=== PATIENT | male | born 1955 | race Caucasian/White ===

== ENCOUNTER 2016-09-17 07:09 | Day surgery (SDC) | payer BC ==
[~2016-09-17 07:09] MED LIST: Lactated Ringers 1,000 ML IV SCH; Lidocaine 1%/Sod Bicarbonate in NS 8.4% 1 ML Syringe IV PRN; Lidocaine 1%/Sod Bicarbonate in NS 8.4% 1 ML Syringe PRN; Sodium Chloride 0.9% 10 ML Syringe FLUSH PRN
[2016-09-17] MEDS ORDERED: Propofol 200 MG/20 ML SDV ONE (07:10)
[2016-09-17] MEDS ORDERED: Midazolam 1 MG/ML 2 ML SDV ONE (07:12)
[2016-09-17] MEDS ORDERED: fentaNYL 250 MCG/5 ML SDV ONE (07:14)
--- NOTE | 2016-09-17 07:41 | PCM.PREANE ---
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 Cardiovascular: Reports: no symptoms GI: Reports: no symptoms Other: Reports: none - PHYSICAL ASSESSMENT O2 Sat by Pulse Oximetry: 96 RR: 16 Vital Signs: Last Vital Signs Temp 36.2 C 09/17/16 06:20 Pulse 68 09/17/16 06:20 Resp 16 09/17/16 06:20 BP 109/67 09/17/16 06:20 Pulse Ox 96 09/17/16 06:20 Height: 1.63 m Weight: 58.967 kg NPO Status Date: 09/16/16 NPO Status Time: 20:00 ASA Class: 2 Mental Status: alert & oriented x3 Airway Class: Mallampati = 3 Dentition: Reports: normal dentition Thyro-Mental Finger Breadths: 3 Mouth Opening Finger Breadths: 3 ROM/Head Extension: full Respiratory Status: lungs clear to auscultation bilaterally Cardiovascular Status: regular rate & rhythm, normal S1, S2, no murmur, blood pressure WNL - ALLERGIES Allergies/Adverse Reactions: Allergies Allergy/AdvReac Type Severity Reaction Status Date / Time erythromycin base Allergy Hives Verified 09/16/16 14:49 sulfamethoxazole Allergy Hives Verified 09/16/16 14:49 [From Bactrim] trimethoprim [From Bactrim] Allergy Hives Verified 09/16/16 14:49 - ANESTHESIA PLAN Beta-Catalino Last Dose Date: 09/17/16 Beta-Catalino Last Dose Time: 05:30 Anesthesia Type Planned: general anesthesia - ACKNOWLEDGEMENTS Pt an appropriate candidate for the planned anesthesia: Yes Alternatives and risks of anesthesia discussed w pt/guardian: Yes Pt/Guardian understands and agree with anesthesia plan: Yes PreAnesthesia Questionnaire HEENT History: Reports: Otitis media, Other (see below) Other HEENT History: bacterial conjunctivits Cardiovascular History: Reports: Hypertension (beta catalino taken this am at 0530) Respiratory History: Reports: Sleep apnea (pt uses CPAP), Other (see below) Other Respiratory History: snoring Gastrointestinal History: 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, GERD (occassional heartburn-pt states depends on what he eats) Genitourinary History: 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 CHAR PULLER History: 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 Musculoskeletal History: Reports: Arthritis, Osteoporosis, Other (see below) Other Musculoskeletal History: bilateral degenerative arthritis of bilateral knees, R knee mass Neurological History: Reports: Migraines Psychiatric History: 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 Endocrine/Metabolic History: Reports: Obesity/BMI 30+ Hematologic History: 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 Immunologic History: 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 Oncologic (Cancer) History: 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 Dermatologic History: 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 - Past Surgical History Head Surgeries/Procedures: 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 HEENT Surgical History: 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 Cardiovascular Surgical History: 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 Respiratory Surgical History: 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 GI Surgical History: 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 Male Surgical History: 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 Endocrine Surgical History: 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 Neurological Surgical History: 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 (no anesthetic complications) Musculoskeletal Surgical History: Reports: Arthroscopic knee, Other (see below) Other Musculoskeletal Surgeries/Procedures:: knee surgery Oncologic Surgical History: 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 Dermatological Surgical History: 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 - Past Imaging History Past Imaging History: 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 - SUBSTANCE USE Smoking Status *Q: Never Smoker Recreational Drug Use History: No - HOME MEDS Home Medications: Home Meds Nebivolol HCl [Bystolic] 10 mg PO DAILY 02/25/16 [History] Hydrochlorothiazide 25 mg PO DAILY 09/16/16 [History] Lisinopril 10 mg PO DAILY 09/16/16 [History] Tadalafil [Cialis] 10 mg PO ASDIRECTED PRN 09/16/16 [History] amLODIPine [Norvasc] 10 mg PO DAILY 09/16/16 [History] traMADol [Ultram] 50 mg PO Q12H PRN 09/16/16 [History] Hydrocodone/Acetaminophen [Foster 5-325 Tablet] 1 - 2 each PO Q6H PRN #40 tablet 09/17/16 [Rx] Aspirin 325 mg PO BID #100 tablet 09/18/16 [Rx] - CURRENT (IN HOUSE) MEDS Current Meds: Current Medications Lactated Ringer's (Ringers, Lactated) 1,000 mls @ 125 mls/hr IV ASDIRECTED B[facility] Stop: 09/17/16 23:00 Lidocaine/Sodium Bicarbonate (Buffered Lidocaine 1% In Ns 8.4%) 0.25 ml .XX ONETIME PRN PRN Reason: Prior to IV Start Stop: 09/17/16 18:00 Sodium Chloride (Saline Flush) 10 ml FLUSH ASDIRECTED PRN PRN Reason: Keep Vein Open Stop: 09/17/16 18:00 Discontinued Medications Fentanyl (Sublimaze) Confirm Administered Dose 250 mcg .ROUTE .STK-MED ONE Stop: 09/17/16 07:15 Midazolam HCl (Versed 1 Mg/Ml) Confirm Administered Dose 2 mg .ROUTE .STK-MED ONE Stop: 09/17/16 07:13 Propofol (Diprivan 20 Ml) Confirm Administered Dose 200 mg .ROUTE .STK-MED ONE Stop: 09/17/16 07:11
[2016-09-17] MEDS ORDERED: Bupivacaine 0.25% 10 ML SDV ONE (07:44)
[2016-09-17] MEDS ORDERED: Ondansetron 4 MG/2 ML SDV IVPUSH PRN (07:57)
[2016-09-17] MEDS ORDERED: fentaNYL 100 MCG/2 ML SDV IVPUSH PRN (09:00)
[2016-09-17] MEDS ORDERED: HYDROmorphone 0.5 MG/0.5 ML Syringe IVPUSH PRN (09:00)
--- NOTE | 2016-09-17 09:05 | PCM.POSTAN ---
POST ANESTHESIA ASSESSMENT - MENTAL STATUS Mental Status: alert, oriented - VITAL SIGNS Pulse Rate: 61 SaO2: 93 Resp Rate: 18 Blood Pressure: 114/68 Temperature: 98.2 C - RESPIRATORY Respiratory Status: respiratory rate WNL, airway patent, O2 saturation stable - CARDIOVASCULAR CV Status: pulse rate WNL, blood pressure stable - GASTROINTESTINAL GI Status: no symptoms - PAIN Pain Score: 0 - POST OP HYDRATION Hydration Status: adequate & stable
[2016-09-17] MEDS ORDERED: Acetaminophen/HYDROcodone 325-5 MG Tab PO PRN (09:11)
--- NOTE | 2016-09-17 10:17 | PCM48HPAN ---
Post Anesthesia Note - EVALUATION WITHIN 48HRS OF ANESTHETIC Vital Signs in Normal Range: Yes Patient Participated in Evaluation: Yes Respiratory Function Stable: Yes Airway Patent: Yes Cardiovascular Function Stable: Yes Hydration Status Stable: Yes Pain Control Satisfactory: Yes Nausea and Vomiting Control Satisfactory: Yes Mental Status Recovered: Yes
[2016-09-17 10:34] VITALS: BP 136/75
--- NOTE | 2016-09-28 22:38 | PCM.OPNOTE ---
- General Post-Op/Procedure Note Date of Surgery/Procedure: 09/17/16 Operative Procedure(s): Excision of cyst/mass from right medial knee Pre Op Diagnosis: mass/cyst right knee Post-Op Diagnosis: Same Anesthesia Technique: General LMA, Local Primary Surgeon: Bharat Hargrove Anesthesia Provider: Kaitlyn Osborne Client Success Specialist: Jess Chavez in mLs: 10 Complications: None Condition: Good
--- NOTE | 2016-09-28 22:58 | OR ---
DATE OF OPERATION: 09/17/2016 SURGEON: Bharat Hargrove MD OPERATIVE PROCEDURE: Excision of cyst/mass, right medial knee. PREOPERATIVE DIAGNOSIS: Mass/cyst, right knee. POSTOPERATIVE DIAGNOSIS: Mass/cyst, right knee. ANESTHESIA: General LMA with local. ANESTHESIA PROVIDER: Kaitlyn Osborne. VELVET STEAMER: Jess Chavez PA-C ESTIMATED BLOOD LOSS: 10 mL. COMPLICATIONS: None. CONDITION: Stable. DESCRIPTION OF PROCEDURE: The patient was identified in the preop holding area. Proper site was marked and identified by the surgeon. The patient was taken back to the operating theater. After adequate anesthesia, the patient's right lower extremity had a nonsterile tourniquet applied and it was then sterilely prepped and draped in the usual sterile fashion. OR time-out was performed. The patient received 2 g IV Ancef, after cultures were taken. At this time, right lower extremity was elevated. Tourniquet was inflated to 300 mmHg. Incision was made. A 10 cm, medial parapatellar arthrotomy was created directly over the mass/cyst on the medial aspect of the knee. At this time, the incision was made over the subcutaneous tissue and layer. Blunt dissection was taken down to the mass, it was noted to be a cystic type structure, well encapsulated with no signs of adherence to the tissue. At this time, it was removed in whole. It was then opened up on the back table and cultures were taken inside contents. It appeared to be cystic type fluid with no signs of purulence or infection. At this time, 6 L of normal saline was irrigated through the defect and a curette was used to roughen up the edges to allow for good healing. At this time, 3-0 Monocryl was used subcutaneously and then nylon was used for the skin. The patient has sterile soft dressing applied and will be weightbear as tolerated. He tolerated the procedure well. OPERATION PERFORMED: MMODAL /[id number]
== END 2016-09-17 10:25 | disposition home or self-care (01) ==
LOC: JD.SDS 07:09
PROVIDERS: ATTEND Orthopaedic Surgery
PROC: 0HBKXZZ Excision of Right Lower Leg Skin, External Approach (ICD-10-PCS; principal; 2016-09-17)
DX: M25.461 Effusion, right knee (principal); M25.861 Other specified joint disorders, right knee; M17.11 Unilateral primary osteoarthritis, right knee; M25.561 Pain in right knee
CPT/HCPCS: 27337; 87075; 87205; 87641; 88305; A9270; J1170; J2250; J3010; J7120; 00400; J2704

== ENCOUNTER 2016-09-28 11:00 | Inpatient (IN) | payer BC ==
[2016-11-02] MEDS ORDERED: Lidocaine 1%/Sod Bicarbonate in NS 8.4% 1 ML Syringe IV PRN (00:01)
[2016-11-02] MEDS ORDERED: Sodium Chloride 0.9% 10 ML Syringe FLUSH PRN (00:01)
[2016-11-02] MEDS ORDERED: Lactated Ringers 1,000 ML IV SCH (00:01)
[2016-11-02] MEDS ORDERED: Ondansetron 4 MG/2 ML SDV IVPUSH PRN ×2 (06:55→11:11)
[2016-11-02] MEDS ORDERED: Morphine 2 MG/ML Syringe IVPUSH PRN (06:55)
[2016-11-02] MEDS ORDERED: Bisacodyl 5 MG Tab PO PRN (06:55)
[2016-11-02] MEDS ORDERED: Lidocaine 1% 4 ML ONE (09:32)
--- NOTE | 2016-11-02 09:32 | PCM.CONS ---
H&P History of Present Illness - General Date of Service: 11/02/16 Admit Problem/Dx: Admission Diagnosis/Problem Admission Diagnosis/Problem Osteoarthritis of knee Source of Information: Patient, Old records, Provider, RN notes reviewed History Limitations: Reports: Physical impairment - History of Present Illness Initial Comments - Free Text/Narative: This is a 61-year-old, white male, with past medical history of Hypertension, OA /DJD, MORENA on CPAP and Morbid Obesity who underwent right total knee arthroplasty post operative day zero. Patient is doing relatively well. His pain is controlled. He denies any acute issues. Hospital Medicine was consulted for postoperative care. Right Knee Pain Score (Numeric/FACES): 4 - Related Data Allergies/Adverse Reactions: Allergies Allergy/AdvReac Type Severity Reaction Status Date / Time erythromycin base Allergy Hives Verified 10/30/16 12:04 sulfamethoxazole Allergy Hives Verified 10/30/16 12:04 [From Bactrim] trimethoprim [From Bactrim] Allergy Hives Verified 10/30/16 12:04 Home Medications: Home Meds Nebivolol HCl [Bystolic] 10 mg PO DAILY 02/25/16 [History] Hydrochlorothiazide 25 mg PO DAILY 09/16/16 [History] Lisinopril 10 mg PO DAILY 09/16/16 [History] Tadalafil [Cialis] 10 mg PO ASDIRECTED PRN 09/16/16 [History] amLODIPine [Norvasc] 10 mg PO DAILY 09/16/16 [History] traMADol [Ultram] 50 mg PO Q12H PRN 09/16/16 [History] Past Medical History HEENT History: Reports: Otitis media, Other (see below) Other HEENT History: bacterial conjunctivitis, otitis media, wears glasses Cardiovascular History: Reports: Hypertension Respiratory History: Reports: Sleep apnea, Other (see below) Other Respiratory History: snoring Gastrointestinal History: 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, GERD Genitourinary History: 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, Other (see below) Other Genitourinary History: urethral stricture 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 Musculoskeletal History: Reports: Arthritis, Osteoporosis, Other (see below) Other Musculoskeletal History: bilateral degenerative arthritis of bilateral knees, R knee mass Neurological History: Reports: Migraines Psychiatric History: 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 Endocrine/Metabolic History: Reports: Obesity/BMI 30+ Hematologic History: 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 Immunologic History: 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 Oncologic (Cancer) History: 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 Dermatologic History: 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 - Past Surgical History Head Surgeries/Procedures: 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 HEENT Surgical History: 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 Cardiovascular Surgical History: 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 Respiratory Surgical History: 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 GI Surgical History: 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 Male Surgical History: 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 Endocrine Surgical History: 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 Neurological Surgical History: 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 Musculoskeletal Surgical History: Reports: Arthroscopic knee, Other (see below) Other Musculoskeletal Surgeries/Procedures:: knee surgery Oncologic Surgical History: 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 Dermatological Surgical History: 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 - Past Imaging History Past Imaging History: 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 Social & Family History - Family History Family Medical History: Noncontributory - Tobacco Use Smoking Status *Q: Never Smoker Second Hand Smoke Exposure: No - Caffeine Use Caffeine Use: 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 - Recreational Drug Use Recreational Drug Use: No H&P Review of Systems - Review of Systems: Review Of Systems: See Below General: Denies: fever, chills, weakness HEENT: Reports: no symptoms Pulmonary: Denies: Shortness of Breath Cardiovascular: Denies: chest pain Gastrointestinal: Denies: Abdominal pain, Nausea, Vomiting Genitourinary: Reports: no symptoms Musculoskeletal: Reports: no symptoms Skin: Denies: cyanosis, rash, erythema Psychiatric: Denies: depression, anxiety, hallucinations Neurological: Reports: Difficulty Walking, Gait Disturbance. Denies: Confusion , Dizziness, Weakness Hematologic/Lymphatic: Reports: no symptoms Immunologic: Reports: no symptoms Exam - Exam Exam: See Below - Vital Signs Weight: 147.418 kg - Exam General: alert, oriented, cooperative, other (Morbidly Obese). No: mild distress HEENT: Conjunctiva clear, EACs clear, EOMI, Hearing intact, Mucosa moist & pink , Nares patent, Normal nasal septum, Posterior pharynx clear, Pupils equal, Pupils reactive Neck: supple, trachea midline, 2+ carotid pulse wo bruit, full range of motion, other (short and thick). No: JVD Lungs: Clear to auscultation, Normal respiratory effort Cardiovascular: regular rate, regular rhythm Abdomen: normal bowel sounds, soft, other (Obese). No: organomegaly (Male) Exam: Other (condom catheter) Rectal (Males) Exam: Deferred Back Exam: normal inspection, decreased range of motion Extremities: normal inspection, normal pulses. No: clubbing, cyanosis, calf tenderness, edema Peripheral Pulses: 2+: posterior tibial (L), posterior tibial (R), dorsalis pedis (L), dorsalis pedis (R) Skin: warm, dry, intact Neuro Extensive - Mental Status: oriented x3, normal cognition, memory intact Neuro Extensive - Motor, Sensory, Reflexes: CN II-XII intact (limited but fairly intact), abnormal gait Psychiatric: alert, normal affect, normal mood Consult PN Assessment/Plan POD#: 0 Procedures: Procedures ASSAY OF FERRITIN (10/09/16) ASSAY OF PREALBUMIN (10/09/16) ASSAY OF PROTEIN OTHER (02/28/16) ASSAY OF SERUM ALBUMIN (10/09/16) BODY FLUID CELL COUNT (02/28/16) C-REACTIVE PROTEIN (10/19/16) CHEST X-RAY 2VW FRONTAL&LATL (09/04/16) COMPLETE CBC W/AUTO DIFF WBC (10/19/16) COMPREHEN METABOLIC PANEL (02/25/16) CULTR BACTERIA EXCEPT BLOOD (09/17/16) CULTURE OTHR SPECIMN AEROBIC (02/25/16) DRAIN/INJ JOINT/BURSA W/O US (02/25/16) EMERGENCY DEPT VISIT (02/25/16) EXAM SYNOVIAL FLUID CRYSTALS (02/28/16) EXC THIGH/KNEE LES SC 3 CM/> (09/17/16) EXTREMITY STUDY (02/25/16) FUNGUS ISOLATION CULTURE (02/28/16) GLUCOSE OTHER FLUID (02/28/16) LIPID PANEL (11/16/14) METABOLIC PANEL TOTAL CA (10/09/16) MR-STAPH DNA AMP PROBE (09/17/16) MRI JNT OF LWR EXTRE W/O DYE (08/18/16) POLYSOM 6/>YRS CPAP 4/> PARM (11/25/15) PROTHROMBIN TIME (10/09/16) RBC SED RATE AUTOMATED (02/25/16) ROUTINE VENIPUNCTURE (02/28/16) SMEAR GRAM STAIN (09/17/16) THROMBOPLASTIN TIME PARTIAL (10/09/16) TISSUE EXAM BY PATHOLOGIST (09/17/16) VITAMIN D 25 HYDROXY (10/09/16) X-RAY EXAM OF KNEE 1 OR 2 (12/02/15) X-RAY EXAM OF KNEE 3 (02/25/16) Problem List Initiated/Reviewed/Updated: Yes Plan: Assessment: Acute: Post-Operative Care State - Stable - Continue to monitor for hemodynamic instability S/p Right Total Knee Arthroplasty - Stable - DVT and Pain Management as per primary team Hx/o Chronic Knee Pain - Pain Management as per primary team Post Operative Urinary Retention - Unable to void post surgery - No urine output on condom catheter - Will switch to palacios, may use pediatric due to hx/o urethral stricture - Monitor urine output per protocol Chronic: HTN MORENA on CPAP OA Peripheral Edema Obesity with BMI of 45 Plan: He is clinically stable Routine AM labs Continue home meds CPAP to use QHS PT/OT consult IS q2 awake Thank you for the opportunity to participate in the management of this patient. Requesting Provider: Dr. Hargrove Date Consult Requested: 11/02/16 Reason for Consult: Post-Operative Care Patient History Reviewed: Yes Admission H&P Reviewed: Yes Consult Result/Summary: Stable but with Post-Operative Urinary Retention
[2016-11-02] MEDS ORDERED: Propofol 200 MG/20 ML SDV ONE ×2 (09:33→11:25)
[2016-11-02] MEDS ORDERED: fentaNYL 100 MCG/2 ML SDV ONE (09:33)
[2016-11-02] MEDS ORDERED: Midazolam 1 MG/ML 2 ML SDV ONE ×2 (09:33→11:07)
[2016-11-02] MEDS ORDERED: ceFAZolin 1 GM Vial ONE ×3 (09:47→10:20)
[2016-11-02] MEDS ORDERED: Iodine/Sodium Iodide 2% Tincture 30 ML Bottle ONE (09:47)
[2016-11-02] MEDS ORDERED: Morphine PF 10 MG/10 ML SDV ONE (10:20)
[2016-11-02] MEDS ORDERED: Lactated Ringers 1,000 ML ONE ×2 (11:05)
[2016-11-02] MEDS ORDERED: diphenhydrAMINE 50 MG/ML SDV IVPUSH PRN (11:11)
[2016-11-02] MEDS ORDERED: fentaNYL 100 MCG/2 ML SDV IVPUSH PRN (11:11)
--- NOTE | 2016-11-02 11:18 | PCM.PREANE ---
Preanesthetic Assessment - Anesthesia/Transfusion/Family Hx Anesthesia History: Prior Anesthesia Without Reaction Family History of Anesthesia Reaction: No Transfusion History: No Prior Transfusion(s) - Review of Systems General: No Symptoms Pulmonary: No Symptoms Cardiovascular: No Symptoms Gastrointestinal: No symptoms Neurological: No Symptoms Other: 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 - Physical Assessment NPO Status Date: 11/01/16 NPO Status Time: 21:30 O2 Sat by Pulse Oximetry: 93 Respiratory Rate: 16 Vital Signs: Last Vital Signs Temp 99.0 F 11/02/16 09:00 Pulse 63 11/02/16 09:00 Resp 16 11/02/16 09:00 BP 150/79 H 11/02/16 09:00 Pulse Ox 93 L 11/02/16 09:00 Height: 5 ft 11 in Weight: 147.418 kg ASA Class: 2 Mental Status: Alert & Oriented x3 Airway Class: Mallampati = 3 Dentition: Reports: Normal Dentition Thyro-Mental Finger Breadths: 3 Mouth Opening Finger Breadths: 3 ROM/Head Extension: Full Lungs: Clear to auscultation, Normal respiratory effort Cardiovascular: Regular Rate, Regular Rhythm - Lab Values: Laboratory Last Values MRSA (PCR) Negative 10/21/16 16:16 - Allergies Allergies/Adverse Reactions: Allergies Allergy/AdvReac Type Severity Reaction Status Date / Time erythromycin base Allergy Hives Verified 10/30/16 12:04 sulfamethoxazole Allergy Hives Verified 10/30/16 12:04 [From Bactrim] trimethoprim [From Bactrim] Allergy Hives Verified 10/30/16 12:04 - Blood Blood Available: No - Anesthesia Plan Pre-Op Medication Ordered: None Beta Catalino: Other (bystolic) Med Last Dose Date: 11/02/16 Med Last Dose Time: 06:15 - Acknowledgements Anesthesia Type Planned: Spinal Pt an Appropriate Candidate for the Planned Anesthesia: Yes Alternatives and Risks of Anesthesia Discussed w Pt/Guardian: Yes Pt/Guardian Understands and Agrees with Anesthesia Plan: Yes PreAnesthesia Questionnaire HEENT History: Reports: Otitis media, Other (see below) Other HEENT History: bacterial conjunctivitis, otitis media, wears glasses Cardiovascular History: Reports: Hypertension Respiratory History: Reports: Sleep apnea, Other (see below) Other Respiratory History: snoring Gastrointestinal History: 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, GERD Genitourinary History: 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, Other (see below) Other Genitourinary History: urethral stricture 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: 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 Musculoskeletal History: Reports: Arthritis, Osteoporosis, Other (see below) Other Musculoskeletal History: bilateral degenerative arthritis of bilateral knees, R knee mass Neurological History: Reports: Migraines Psychiatric History: 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 Endocrine/Metabolic History: Reports: Obesity/BMI 30+ Hematologic History: 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 Immunologic History: 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 Oncologic (Cancer) History: 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 Dermatologic History: 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 - Past Surgical History Head Surgeries/Procedures: 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 HEENT Surgical History: 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 Cardiovascular Surgical History: 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 Respiratory Surgical History: 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 GI Surgical History: 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 Male Surgical History: 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 Endocrine Surgical History: 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 Neurological Surgical History: 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 Musculoskeletal Surgical History: Reports: Arthroscopic knee, Other (see below) Other Musculoskeletal Surgeries/Procedures:: knee surgery Oncologic Surgical History: 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 Dermatological Surgical History: 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 - Past Imaging History Past Imaging History: 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 - SUBSTANCE USE Smoking Status *Q: Never Smoker Tobacco Use Within Last Twelve Months: No Second Hand Smoke Exposure: No Days Per Week of Alcohol Use: 1 Number of Drinks Per Day: 3 Total Drinks Per Week: 3 Recreational Drug Use History: No - HOME MEDS Home Medications: Home Meds Nebivolol HCl [Bystolic] 10 mg PO DAILY 02/25/16 [History] Hydrochlorothiazide 25 mg PO DAILY 09/16/16 [History] Lisinopril 10 mg PO DAILY 09/16/16 [History] Tadalafil [Cialis] 10 mg PO ASDIRECTED PRN 09/16/16 [History] amLODIPine [Norvasc] 10 mg PO DAILY 09/16/16 [History] traMADol [Ultram] 50 mg PO Q12H PRN 09/16/16 [History] - CURRENT (IN HOUSE) MEDS Current Meds: Current Medications Aspirin (Ecotrin) 325 mg PO BID [facility] Bisacodyl (Dulcolax) 5 mg PO DAILY PRN PRN Reason: Constipation Cyclobenzaprine HCl (Flexeril) 10 mg PO TID PRN PRN Reason: Spasms Docusate Sodium (Colace) 100 mg PO BID BENSON Famotidine (Pepcid) 20 mg PO Q12H BENSON Lactated Ringer's (Ringers, Lactated) 1,000 mls @ 125 mls/hr IV ASDIRECTED [facility] Last Admin: 11/02/16 09:00 Dose: 125 mls/hr Cefazolin Sodium/Dextrose 2 gm (/ Premix) 50 mls @ 100 mls/hr IV Q8H [facility] Stop: 11/03/16 09:59 Lidocaine/Sodium Bicarbonate (Buffered Lidocaine 1% In Ns 8.4%) 0.25 ml IV ONETIME PRN PRN Reason: Prior to IV Start Last Admin: 11/02/16 08:59 Dose: 0.25 ml Magnesium Hydroxide (Milk Of Magnesia) 30 ml PO BID PRN PRN Reason: Constipation Morphine Sulfate (Morphine) 2 mg IVPUSH Q2H PRN PRN Reason: Breakthrough Pain Multivitamins (Thera) 1 each PO WITHBREAKFAST [facility] Naloxone HCl (Narcan) 0.1 mg IVPUSH Q5M PRN PRN Reason: Oversedation Stop: 11/02/16 12:16 Ondansetron HCl (Zofran) 4 mg IVPUSH Q6H PRN PRN Reason: Nausea/Vomiting Oxycodone/Acetaminophen (Percocet 325-5 Mg) 1 - 2 tab PO Q4H PRN PRN Reason: Pain Senna (Senna) 8.6 mg PO BID PRN PRN Reason: Constipation Sodium Chloride (Saline Flush) 10 ml FLUSH ASDIRECTED PRN PRN Reason: Keep Vein Open Discontinued Medications Bupivacaine HCl (Marcaine 0.25%) Confirm Administered Dose 30 ml .ROUTE .STK- MED ONE Stop: 11/02/16 09:48 Cefazolin Sodium (Ancef) Confirm Administered Dose 2 gm .ROUTE .STK-MED ONE Stop: 11/02/16 09:34 Cefazolin Sodium (Ancef) Confirm Administered Dose 1 gm .ROUTE .STK-MED ONE Stop: 11/02/16 09:48 Cefazolin Sodium (Ancef) Confirm Administered Dose 1 gm .ROUTE .STK-MED ONE Stop: 11/02/16 09:50 Cefazolin Sodium (Ancef) Confirm Administered Dose 1 gm .ROUTE .STK-MED ONE Stop: 11/02/16 10:21 Morphine Sulfate 8 mg/Epinephrine HCl 0.3 mg/Cefuroxime Sodium 750 mg/Ketorolac Tromethamine 30 mg/Sodium Chloride 27.9 ml 0 mg .XX ONETIME ONE Stop: 11/02/16 10:46 Fentanyl (Sublimaze) Confirm Administered Dose 100 mcg .ROUTE .STK-MED ONE Stop: 11/02/16 09:34 Lidocaine HCl (Xylocaine-Mpf 1%) Confirm Administered Dose 4 mls @ as directed .ROUTE .STK-MED ONE Stop: 11/02/16 09:33 Lactated Ringer's (Ringers, Lactated) Confirm Administered Dose 1,000 mls @ as directed .ROUTE .STK-MED ONE Stop: 11/02/16 11:06 Lactated Ringer's (Ringers, Lactated) Confirm Administered Dose 1,000 mls @ as directed .ROUTE .STK-MED ONE Stop: 11/02/16 11:06 Iodine (Iodine 2% Mild Tincture) Confirm Administered Dose 30 ml .ROUTE .STK- MED ONE Stop: 11/02/16 09:48 Midazolam HCl (Versed 1 Mg/Ml) Confirm Administered Dose 2 mg .ROUTE .STK-MED ONE Stop: 11/02/16 09:34 Midazolam HCl (Versed 1 Mg/Ml) Confirm Administered Dose 2 mg .ROUTE .STK-MED ONE Stop: 11/02/16 11:08 Morphine Sulfate (Duramorph Pf) Confirm Administered Dose 10 mg .ROUTE .STK-MED ONE Stop: 11/02/16 10:21 Propofol (Diprivan 20 Ml) Confirm Administered Dose 200 mg .ROUTE .STK-MED ONE Stop: 11/02/16 09:34 Tranexamic Acid (Cyklokapron) Confirm Administered Dose 1,000 mg .ROUTE .STK- MED ONE Stop: 11/02/16 09:47
[2016-11-02] MEDS: ceFAZolin 1 GM Vial ONE ×2 (11:41→12:18)
[2016-11-02] MEDS: Bupivacaine 0.25% 30 ML SDV ONE ×2 (11:41→12:23)
[2016-11-02] MEDS: Morphine 8 MG, EPINEPHrine 0.3 MG, Cefuroxime 750 MG, Ketorolac 30 MG, Sodium Chloride ... ONE ×10 (11:44→12:22)
[2016-11-02] MEDS ORDERED: Naloxone 0.4 MG/ML SDV IVPUSH PRN (12:00)
[2016-11-02] MEDS ORDERED: Meperidine PF 50 MG/ML Syringe IVPUSH PRN (12:15)
[2016-11-02] MEDS ORDERED: TADALAFIL 10 MG PO PRN (12:17)
--- NOTE | 2016-11-02 13:14 | PCM.POSTAN ---
POST ANESTHESIA ASSESSMENT - MENTAL STATUS Mental Status: alert, oriented - VITAL SIGNS Pulse Rate: 56 SaO2: 93 Resp Rate: 10 Blood Pressure: 129/76 Temperature: 98.4 C - RESPIRATORY Respiratory Status: respiratory rate WNL, airway patent, O2 saturation stable - CARDIOVASCULAR CV Status: pulse rate WNL, blood pressure stable - GASTROINTESTINAL GI Status: no symptoms - PAIN Pain Score: 0 - POST OP HYDRATION Hydration Status: adequate & stable
[2016-11-02] MEDS: Acetaminophen/oxyCODONE 325-5 MG Tab PO PRN ×2 (15:56→20:50)
[2016-11-02] MEDS: Cyclobenzaprine 10 MG Tab PO PRN ×2 (15:58→23:15)
[2016-11-02] MEDS ORDERED: Lidocaine 2% Jelly 10 ML Urojet ONE (16:37)
[2016-11-02] MEDS ORDERED: Bumetanide 1 MG/4 ML MDV IVPUSH ONE (17:03)
--- NOTE | 2016-11-02 17:04 | CR ---
Right knee: AP and lateral views of the right knee were obtained. Comparison: Previous MRI right knee of 08/18/16 and plain film right knee study of 12/02/15. Knee prosthesis is seen. Components are aligned. Underlying bony structures are intact. Soft tissue air noted from the surgical procedure. Cortical thickening is seen within the proximal fibular diaphysis compatible with old injury. Impression: 1. Satisfactory radiographic appearance of recently placed right knee prosthesis. Diagnostic code #2
[2016-11-02] MEDS: Tamsulosin 0.4 MG Cap.ER PO SCH ×2 (17:40→18:52)
[2016-11-02] MEDS: ceFAZolin 2 GM in Premix Bag 1 BAG IV SCH (17:49)
[2016-11-02] MEDS: ceFAZolin 1 GM in Premix Bag 1 BAG IV SCH (18:34)
[2016-11-02] MEDS ORDERED: Sennosides 8.6 MG Tab PO PRN (21:00)
[2016-11-02] MEDS ORDERED: Magnesium Hydroxide 400 MG/5 ML Susp 30 ML Cup PO PRN (21:00)
[2016-11-02] MEDS: Famotidine 20 MG Tab PO SCH (22:00)
[2016-11-02] MEDS: Docusate Sodium 100 MG Cap PO SCH (23:07)
[2016-11-03] MEDS: Acetaminophen/oxyCODONE 325-5 MG Tab PO PRN ×4 (01:11→13:40)
[2016-11-03] MEDS: ceFAZolin 2 GM in Premix Bag 1 BAG IV SCH ×2 (01:21→09:05)
--- NOTE | 2016-11-03 01:46 | PCM.SN ---
- Free Text/Narrative Note: Patient was able to empty his bladder after he had gotten flomax and one time dose of bumex. Will continue to monitor output.
[2016-11-03] MEDS: ceFAZolin 1 GM in Premix Bag 1 BAG IV SCH ×2 (01:59→10:26)
[2016-11-03] MEDS ORDERED: Multivitamins,Therapeutic Tab PO SCH (07:00)
[2016-11-03] MEDS: Cyclobenzaprine 10 MG Tab PO PRN (07:25)
--- NOTE | 2016-11-03 08:29 | PCM48HPAN ---
Post Anesthesia Note - EVALUATION WITHIN 48HRS OF ANESTHETIC Vital Signs in Normal Range: Yes Patient Participated in Evaluation: Yes Respiratory Function Stable: Yes Airway Patent: Yes Cardiovascular Function Stable: Yes Hydration Status Stable: Yes Pain Control Satisfactory: Yes Nausea and Vomiting Control Satisfactory: Yes Mental Status Recovered: Yes - COMMENTS/OBSERVATIONS Free Text/Narrative:: Patient awake, alert, and responsive to interview. Patient states pain control is adequate. Patient encouraged to deep breathe and cough and use IS every hour.
--- NOTE | 2016-11-03 08:41 | PCM.PN ---
- General Info Date of Service: 11/03/16 Admission Dx/Problem (Free Text): Admission Diagnosis/Problem Admission Diagnosis/Problem Osteoarthritis of knee POD #[address] Hargrove Pain controlled Working with PT/OT doing well Voiding now; had flomax and bumex last night Functional Status: Reports: pain controlled, tolerating diet, ambulating, urinating. Denies: new symptoms - Review of Systems General: Reports: No Symptoms HEENT: Reports: no symptoms Pulmonary: Reports: no symptoms Cardiovascular: Reports: No Symptoms Gastrointestinal: Reports: No symptoms Genitourinary: Reports: no symptoms Musculoskeletal: Reports: leg pain Skin: Reports: no symptoms Neurological: Reports: No Symptoms Psychiatric: Reports: no symptoms - Patient Data Vitals - most recent: Last Vital Signs Temp 98.1 F 11/03/16 04:57 Pulse 67 11/03/16 04:57 Resp 18 11/03/16 07:58 BP 121/66 11/03/16 04:57 Pulse Ox 99 11/03/16 07:58 Weight - most recent: 325 lb I&O - last 24 hours: Intake & Output 11/02/16 11/03/16 11/03/16 22:59 06:59 14:59 Intake Total 450 1300 Output Total 1700 500 Balance -1250 800 Lab Results last 24 hrs: Laboratory Results - last 24 hr 11/03/16 11/03/16 Range/Units 06:10 06:10 WBC 13.03 H (4.23-9.07) K/mm3 RBC 4.27 L (4.63-6.08) M/mm3 Hgb 12.7 L (13.7-17.5) gm/L Hct 38.4 L (40.1-51.0) % MCV 89.9 (79.0-92.2) fl MCH 29.7 (25.7-32.2) pg MCHC 33.1 (32.2-35.5) g/dl RDW Std Deviation 46.8 H (35.1-43.9) fL Plt Count 200 (163-337) K/mm3 MPV 9.7 (9.4-12.3) fl Neut % (Auto) 74.4 H (34.0-67.9) % Lymph % (Auto) 12.4 L (21.8-53.1) % Clark % (Auto) 11.4 (5.3-12.2) % Eos % (Auto) 1.4 (0.8-7.0) Baso % (Auto) 0.2 (0.1-1.2) % Neut # (Auto) 9.70 H (1.78-5.38) K/mm3 Lymph # (Auto) 1.62 (1.32-3.57) K/mm3 Clark # (Auto) 1.48 H (0.30-0.82) K/mm3 Eos # (Auto) 0.18 (0.04-0.54) K/mm3 Baso # (Auto) 0.02 (0.01-0.08) K/mm3 Sodium 136 (136-145) mEq/L Potassium 3.5 (3.5-5.1) mEq/L Chloride 100 (98-107) mEq/L Carbon Dioxide 29 (21-32) mEq/L Anion Gap 10.5 (5-15) BUN 12 (7-18) mg/dL Creatinine 0.9 (0.7-1.3) mg/dL Est Cr Clr Drug Dosing 72.80 mL/min Estimated GFR (MDRD) > 60 (>60) mL/min BUN/Creatinine Ratio 13.3 L (14-18) Glucose 127 H (74-106) mg/dL Calcium 8.0 L (8.5-10.1) mg/dL Total Bilirubin 0.8 (0.2-1.0) mg/dL AST 13 L (15-37) U/L ALT 19 (16-63) U/L Alkaline Phosphatase 55 (46-116) U/L Total Protein 6.0 L (6.4-8.2) g/dl Albumin 2.8 L (3.4-5.0) g/dl Globulin 3.2 gm/dL Albumin/Globulin Ratio 0.9 L (1-2) Med Orders - Current: Current Medications Amlodipine Besylate (Norvasc) 10 mg PO DAILY [facility] Aspirin (Ecotrin) 325 mg PO BID [facility] Bisacodyl (Dulcolax) 5 mg PO DAILY PRN PRN Reason: Constipation Carvedilol (Coreg) 6.25 mg PO DAILY [facility] Cyclobenzaprine HCl (Flexeril) 10 mg PO TID PRN PRN Reason: Spasms Last Admin: 11/03/16 07:25 Dose: 10 mg Docusate Sodium (Colace) 100 mg PO BID [facility] Last Admin: 11/02/16 23:07 Dose: Not Given Famotidine (Pepcid) 20 mg PO Q12H [facility] Last Admin: 11/02/16 22:00 Dose: 20 mg Hydrochlorothiazide (Hydrochlorothiazide) 25 mg PO DAILY [facility] Cefazolin Sodium/Dextrose 2 gm (/ Premix) 50 mls @ 100 mls/hr IV Q8H [facility] Stop: 11/03/16 09:59 Last Admin: 11/03/16 01:21 Dose: 100 mls/hr Cefazolin Sodium/Dextrose 1 gm (/ Premix) 50 mls @ 100 mls/hr IV Q8H [facility] Stop: 11/03/16 09:59 Last Admin: 11/03/16 01:59 Dose: 100 mls/hr Lisinopril (Prinivil) 10 mg PO DAILY [facility] Magnesium Hydroxide (Milk Of Magnesia) 30 ml PO BID PRN PRN Reason: Constipation Meperidine HCl (Demerol) 12.5 mg IVPUSH ONETIME PRN PRN Reason: shivering Stop: 11/03/16 12:16 Morphine Sulfate (Morphine) 2 mg IVPUSH Q2H PRN PRN Reason: Breakthrough Pain Multivitamins (Thera) 1 each PO WITHBREAKFAST [facility] Last Admin: 11/03/16 07:25 Dose: 1 each Ondansetron HCl (Zofran) 4 mg IVPUSH Q6H PRN PRN Reason: Nausea/Vomiting Oxycodone/Acetaminophen (Percocet 325-5 Mg) 1 - 2 tab PO Q4H PRN PRN Reason: Pain Last Admin: 11/03/16 04:57 Dose: 2 tab Senna (Senna) 8.6 mg PO BID PRN PRN Reason: Constipation Sodium Chloride (Saline Flush) 10 ml FLUSH ASDIRECTED PRN PRN Reason: Keep Vein Open [facility] Last Admin: 11/02/16 18:52 Dose: Not Given Discontinued Medications Bumetanide (Bumex) 1 mg IVPUSH ONETIME ONE Stop: 11/02/16 17:04 Last Admin: 11/02/16 17:40 Dose: 1 mg Bupivacaine HCl (Marcaine 0.25%) Confirm Administered Dose 30 ml .ROUTE .STK- MED ONE Stop: 11/02/16 09:48 Last Admin: 11/02/16 12:23 Dose: 30 ml Cefazolin Sodium (Ancef) Confirm Administered Dose 2 gm .ROUTE .STK-MED ONE Stop: 11/02/16 09:34 Last Admin: 11/02/16 12:18 Dose: 2 gm Cefazolin Sodium (Ancef) Confirm Administered Dose 1 gm .ROUTE .STK-MED ONE Stop: 11/02/16 09:48 Cefazolin Sodium (Ancef) Confirm Administered Dose 1 gm .ROUTE .STK-MED ONE Stop: 11/02/16 09:50 Cefazolin Sodium (Ancef) Confirm Administered Dose 1 gm .ROUTE .STK-MED ONE Stop: 11/02/16 10:21 Morphine Sulfate 8 mg/Epinephrine HCl 0.3 mg/Cefuroxime Sodium 750 mg/Ketorolac Tromethamine 30 mg/Sodium Chloride 27.9 ml 0 mg .XX ONETIME ONE Stop: 11/02/16 10:46 Last Admin: 11/02/16 12:22 Dose: 788.3 mg Diphenhydramine HCl (Benadryl) 25 mg IVPUSH Q6H PRN PRN Reason: pruritis Stop: 11/02/16 18:00 Fentanyl (Sublimaze) Confirm Administered Dose 100 mcg .ROUTE .STK-MED ONE Stop: 11/02/16 09:34 Fentanyl (Sublimaze) 50 mcg IVPUSH Q5M PRN PRN Reason: Pain Stop: 11/02/16 18:00 Lactated Ringer's (Ringers, Lactated) 1,000 mls @ 125 mls/hr IV ASDIRECTED [facility] Last Admin: 11/02/16 09:00 Dose: 125 mls/hr Lidocaine HCl (Xylocaine-Mpf 1%) Confirm Administered Dose 4 mls @ as directed .ROUTE .STK-MED ONE Stop: 11/02/16 09:33 Lactated Ringer's (Ringers, Lactated) Confirm Administered Dose 1,000 mls @ as directed .ROUTE .STK-MED ONE Stop: 11/02/16 11:06 Lactated Ringer's (Ringers, Lactated) Confirm Administered Dose 1,000 mls @ as directed .ROUTE .STK-MED ONE Stop: 11/02/16 11:06 Iodine (Iodine 2% Mild Tincture) Confirm Administered Dose 30 ml .ROUTE .STK- MED ONE Stop: 11/02/16 09:48 Last Admin: 11/02/16 12:12 Dose: 18 ml Lidocaine HCl (Xylocaine 2% Jelly) Confirm Administered Dose 10 ml .ROUTE .STK- MED ONE Stop: 11/02/16 16:38 Lidocaine/Sodium Bicarbonate (Buffered Lidocaine 1% In Ns 8.4%) 0.25 ml IV ONETIME PRN PRN Reason: Prior to IV Start Last Admin: 11/02/16 08:59 Dose: 0.25 ml Midazolam HCl (Versed 1 Mg/Ml) Confirm Administered Dose 2 mg .ROUTE .STK-MED ONE Stop: 11/02/16 09:34 Midazolam HCl (Versed 1 Mg/Ml) Confirm Administered Dose 2 mg .ROUTE .STK-MED ONE Stop: 11/02/16 11:08 Morphine Sulfate (Duramorph Pf) Confirm Administered Dose 10 mg .ROUTE .STK-MED ONE Stop: 11/02/16 10:21 Naloxone HCl (Narcan) 0.1 mg IVPUSH Q5M PRN PRN Reason: Oversedation Stop: 11/02/16 12:16 Non-Formulary Medication (Tadalafil [Cialis]) 10 mg PO ASDIRECTED PRN PRN Reason: erectile dysfuction Ondansetron HCl (Zofran) 4 mg IVPUSH ONETIME PRN PRN Reason: Nausea/Vomiting Stop: 11/02/16 18:00 Propofol (Diprivan 20 Ml) Confirm Administered Dose 200 mg .ROUTE .STK-MED ONE Stop: 11/02/16 09:34 Propofol (Diprivan 20 Ml) Confirm Administered Dose 400 mg .ROUTE .STK-MED ONE Stop: 11/02/16 11:26 Tranexamic Acid (Cyklokapron) Confirm Administered Dose 1,000 mg .ROUTE .STK- MED ONE Stop: 11/02/16 09:47 Last Admin: 11/02/16 12:28 Dose: 1,000 mg - Exam Quality Assessment: supplemental oxygen, DVT prophylaxis General: alert, oriented, cooperative, no acute distress HEENT: Pupils equal, Pupils reactive, EOMI, Mucous membr. moist/pink Neck: supple Lungs: Clear to auscultation, Normal respiratory effort Cardiovascular: Regular Rate, Regular Rhythm Abdomen: bowel sounds present, soft, no tenderness, no distension (Male) Exam: Deferred Extremities: other (teds, scd's and ice) Peripheral Pulses: 1+: dorsalis pedis (L), dorsalis pedis (R) Neurological: no new focal deficit Psy/Mental Status: alert, normal affect, normal mood - Problem List & Annotations (1) S/P total knee arthroplasty SNOMED Code(s): 9796116266283, 735615242, 4459513729886 Code(s): Z96.659 - PRESENCE OF UNSPECIFIED ARTIFICIAL KNEE JOINT Status: Acute Priority: High Current Visit: Yes Qualifiers: Laterality: right Qualified Code(s): Z96.651 - Presence of right artificial knee joint (2) Osteoarthritis SNOMED Code(s): 779009185 Code(s): M19.90 - UNSPECIFIED OSTEOARTHRITIS, UNSPECIFIED SITE Status: Acute Priority: High Current Visit: Yes Qualifiers: Osteoarthritis location: knee Osteoarthritis type: primary Laterality: right Qualified Code(s): M17.11 - Unilateral primary osteoarthritis, right knee (3) Urinary retention SNOMED Code(s): 982400532 Code(s): R33.9 - RETENTION OF URINE, UNSPECIFIED Status: Acute Priority: High Current Visit: Yes (4) HTN (hypertension) SNOMED Code(s): 81797968 Code(s): I10 - ESSENTIAL (PRIMARY) HYPERTENSION Status: Chronic Priority : Medium Current Visit: No Qualifiers: Hypertension type: essential hypertension Qualified Code(s): I10 - Essential (primary) hypertension (5) MORENA (obstructive sleep apnea) SNOMED Code(s): 54187639 Code(s): G47.33 - OBSTRUCTIVE SLEEP APNEA (ADULT) (PEDIATRIC) Status: Chronic Priority: Medium Current Visit: No (6) Obesity SNOMED Code(s): 115859790 Code(s): E66.9 - OBESITY, UNSPECIFIED Status: Chronic Priority: Medium Current Visit: No Qualifiers: Obesity severity: unspecified obesity severity - Problem List Review Problem List Initiated/Reviewed/Updated: Yes - Plan Plan:: I/P: S/P Rt TKA with Dr. Delvin: POD #1 -Pain management and DVT prophyax per primary team, Orthopedics -PT/OT -IS, C&DB -HGB 12.7 today -VSS Urinary retention -Flomax and diuretic dose last evening with spontaneous void -Cont close monitoring Chronic conditions- stable and cont home meds/tx HTN MORENA Obesity Other: GI prophylax CM/SW for dc planning OK for dc home today from hospitalist standpoint- medically stable Patient is Full Code
[2016-11-03] MEDS: Docusate Sodium 100 MG Cap PO SCH (08:58)
[2016-11-03] MEDS: Tamsulosin 0.4 MG Cap.ER PO SCH (08:58)
[2016-11-03] MEDS ORDERED: Aspirin 325 MG Tab.EC PO SCH (09:00)
[2016-11-03] MEDS ORDERED: amLODIPine 10 MG Tab PO SCH (09:00)
[2016-11-03] MEDS ORDERED: Carvedilol 6.25 MG Tab PO SCH (09:00)
[2016-11-03] MEDS ORDERED: Lisinopril 10 MG Tab PO SCH (09:00)
[2016-11-03] MEDS ORDERED: Hydrochlorothiazide 25 MG Tab PO SCH (09:00)
[2016-11-03] MEDS: Famotidine 20 MG Tab PO SCH (09:03)
[2016-11-03 15:51] VITALS: BP 162/79
--- NOTE | 2016-11-04 21:08 | PCM.SURGPN ---
- General Info Date of Service: 11/02/16 Date of Surgery/Procedure: 11/03/16 POD#: 1 Functional Status: Reports: pain controlled, tolerating diet, ambulating, urinating, incentive spirometry - Review of Systems General: Reports: No Symptoms HEENT: Reports: no symptoms Pulmonary: Reports: no symptoms. Denies: shortness of breath Cardiovascular: Reports: No Symptoms. Denies: Chest Pain Gastrointestinal: Reports: No symptoms Genitourinary: Reports: no symptoms Musculoskeletal: Reports: leg pain (Mild due to recent OT) Skin: Reports: no symptoms Neurological: Denies: Numbness, Paresthesia, Weakness Psychiatric: Reports: no symptoms - Patient Data Vitals - most recent: Last Vital Signs Temp 37.4 C 11/03/16 15:13 Pulse 101 H 11/03/16 15:13 Resp 18 11/03/16 12:00 BP 162/79 H 11/03/16 15:13 Pulse Ox 91 L 11/03/16 15:13 Weight - most recent: 147.418 kg Lab Results last 24 hrs: Laboratory Last Values WBC 13.03 K/mm3 (4.23-9.07) H 11/03/16 06:10 RBC 4.27 M/mm3 (4.63-6.08) L 11/03/16 06:10 Hgb 12.7 gm/L (13.7-17.5) L 11/03/16 06:10 Hct 38.4 % (40.1-51.0) L 11/03/16 06:10 MCV 89.9 fl (79.0-92.2) 11/03/16 06:10 MCH 29.7 pg (25.7-32.2) 11/03/16 06:10 MCHC 33.1 g/dl (32.2-35.5) 11/03/16 06:10 RDW Std Deviation 46.8 fL (35.1-43.9) H 11/03/16 06:10 Plt Count 200 K/mm3 (163-337) 11/03/16 06:10 MPV 9.7 fl (9.4-12.3) 11/03/16 06:10 Neut % (Auto) 74.4 % (34.0-67.9) H 11/03/16 06:10 Lymph % (Auto) 12.4 % (21.8-53.1) L 11/03/16 06:10 Kimble % (Auto) 11.4 % (5.3-12.2) 11/03/16 06:10 Eos % (Auto) 1.4 (0.8-7.0) 11/03/16 06:10 Baso % (Auto) 0.2 % (0.1-1.2) 11/03/16 06:10 Neut # (Auto) 9.70 K/mm3 (1.78-5.38) H 11/03/16 06:10 Lymph # (Auto) 1.62 K/mm3 (1.32-3.57) 11/03/16 06:10 Kimble # (Auto) 1.48 K/mm3 (0.30-0.82) H 11/03/16 06:10 Eos # (Auto) 0.18 K/mm3 (0.04-0.54) 11/03/16 06:10 Baso # (Auto) 0.02 K/mm3 (0.01-0.08) 11/03/16 06:10 Sodium 136 mEq/L (136-145) 11/03/16 06:10 Potassium 3.5 mEq/L (3.5-5.1) 11/03/16 06:10 Chloride 100 mEq/L (98-107) 11/03/16 06:10 Carbon Dioxide 29 mEq/L (21-32) 11/03/16 06:10 Anion Gap 10.5 (5-15) 11/03/16 06:10 BUN 12 mg/dL (7-18) 11/03/16 06:10 Creatinine 0.9 mg/dL (0.7-1.3) 11/03/16 06:10 Est Cr Clr Drug Dosing 72.80 mL/min 11/03/16 06:10 Estimated GFR (MDRD) > 60 mL/min (>60) 11/03/16 06:10 BUN/Creatinine Ratio 13.3 (14-18) L 11/03/16 06:10 Glucose 127 mg/dL (74-106) H 11/03/16 06:10 Calcium 8.0 mg/dL (8.5-10.1) L 11/03/16 06:10 Total Bilirubin 0.8 mg/dL (0.2-1.0) 11/03/16 06:10 AST 13 U/L (15-37) L 11/03/16 06:10 ALT 19 U/L (16-63) 11/03/16 06:10 Alkaline Phosphatase 55 U/L (46-116) 11/03/16 06:10 Total Protein 6.0 g/dl (6.4-8.2) L 11/03/16 06:10 Albumin 2.8 g/dl (3.4-5.0) L 11/03/16 06:10 Globulin 3.2 gm/dL 11/03/16 06:10 Albumin/Globulin Ratio 0.9 (1-2) L 11/03/16 06:10 MRSA (PCR) Negative 10/21/16 16:16 Med Orders - Current: Current Medications Discontinued Medications Amlodipine Besylate (Norvasc) 10 mg PO DAILY [facility] Last Admin: 11/03/16 09:02 Dose: 10 mg Aspirin (Ecotrin) 325 mg PO BID [facility] Last Admin: 11/03/16 09:03 Dose: 325 mg Bisacodyl (Dulcolax) 5 mg PO DAILY PRN PRN Reason: Constipation Bumetanide (Bumex) 1 mg IVPUSH ONETIME ONE Stop: 11/02/16 17:04 Last Admin: 11/02/16 17:40 Dose: 1 mg Bupivacaine HCl (Marcaine 0.25%) Confirm Administered Dose 30 ml .ROUTE .STK- MED ONE Stop: 11/02/16 09:48 Last Admin: 11/02/16 12:23 Dose: 30 ml Carvedilol (Coreg) 6.25 mg PO DAILY [facility] Last Admin: 11/03/16 08:59 Dose: 6.25 mg Cefazolin Sodium (Ancef) Confirm Administered Dose 2 gm .ROUTE .STK-MED ONE Stop: 11/02/16 09:34 Last Admin: 11/02/16 12:18 Dose: 2 gm Cefazolin Sodium (Ancef) Confirm Administered Dose 1 gm .ROUTE .STK-MED ONE Stop: 11/02/16 09:48 Cefazolin Sodium (Ancef) Confirm Administered Dose 1 gm .ROUTE .STK-MED ONE Stop: 11/02/16 09:50 Cefazolin Sodium (Ancef) Confirm Administered Dose 1 gm .ROUTE .STK-MED ONE Stop: 11/02/16 10:21 Morphine Sulfate 8 mg/Epinephrine HCl 0.3 mg/Cefuroxime Sodium 750 mg/Ketorolac Tromethamine 30 mg/Sodium Chloride 27.9 ml 0 mg .XX ONETIME ONE Stop: 11/02/16 10:46 Last Admin: 11/02/16 12:22 Dose: 788.3 mg Cyclobenzaprine HCl (Flexeril) 10 mg PO TID PRN PRN Reason: Spasms Last Admin: 11/03/16 07:25 Dose: 10 mg Diphenhydramine HCl (Benadryl) 25 mg IVPUSH Q6H PRN PRN Reason: pruritis Stop: 11/02/16 18:00 Docusate Sodium (Colace) 100 mg PO BID [facility] Last Admin: 11/03/16 08:58 Dose: 100 mg Famotidine (Pepcid) 20 mg PO Q12H [facility] Last Admin: 11/03/16 09:03 Dose: 20 mg Fentanyl (Sublimaze) Confirm Administered Dose 100 mcg .ROUTE .STK-MED ONE Stop: 11/02/16 09:34 Fentanyl (Sublimaze) 50 mcg IVPUSH Q5M PRN PRN Reason: Pain Stop: 11/02/16 18:00 Hydrochlorothiazide (Hydrochlorothiazide) 25 mg PO DAILY [facility] Last Admin: 11/03/16 09:03 Dose: 25 mg Lactated Ringer's (Ringers, Lactated) 1,000 mls @ 125 mls/hr IV ASDIRECTED [facility] Last Admin: 11/02/16 09:00 Dose: 125 mls/hr Cefazolin Sodium/Dextrose 2 gm (/ Premix) 50 mls @ 100 mls/hr IV Q8H [facility] Stop: 11/03/16 09:59 Last Admin: 11/03/16 09:05 Dose: 100 mls/hr Lidocaine HCl (Xylocaine-Mpf 1%) Confirm Administered Dose 4 mls @ as directed .ROUTE .STK-MED ONE Stop: 11/02/16 09:33 Lactated Ringer's (Ringers, Lactated) Confirm Administered Dose 1,000 mls @ as directed .ROUTE .STK-MED ONE Stop: 11/02/16 11:06 Lactated Ringer's (Ringers, Lactated) Confirm Administered Dose 1,000 mls @ as directed .ROUTE .STK-MED ONE Stop: 11/02/16 11:06 Cefazolin Sodium/Dextrose 1 gm (/ Premix) 50 mls @ 100 mls/hr IV Q8H [facility] Stop: 11/03/16 09:59 Last Admin: 11/03/16 10:26 Dose: 100 mls/hr Iodine (Iodine 2% Mild Tincture) Confirm Administered Dose 30 ml .ROUTE .STK- MED ONE Stop: 11/02/16 09:48 Last Admin: 11/02/16 12:12 Dose: 18 ml Lidocaine HCl (Xylocaine 2% Jelly) Confirm Administered Dose 10 ml .ROUTE .STK- MED ONE Stop: 11/02/16 16:38 Lidocaine/Sodium Bicarbonate (Buffered Lidocaine 1% In Ns 8.4%) 0.25 ml IV ONETIME PRN PRN Reason: Prior to IV Start Last Admin: 11/02/16 08:59 Dose: 0.25 ml Lisinopril (Prinivil) 10 mg PO DAILY [facility] Last Admin: 11/03/16 09:02 Dose: 10 mg Magnesium Hydroxide (Milk Of Magnesia) 30 ml PO BID PRN PRN Reason: Constipation Meperidine HCl (Demerol) 12.5 mg IVPUSH ONETIME PRN PRN Reason: shivering Stop: 11/03/16 12:16 Midazolam HCl (Versed 1 Mg/Ml) Confirm Administered Dose 2 mg .ROUTE .STK-MED ONE Stop: 11/02/16 09:34 Midazolam HCl (Versed 1 Mg/Ml) Confirm Administered Dose 2 mg .ROUTE .STK-MED ONE Stop: 11/02/16 11:08 Morphine Sulfate (Morphine) 2 mg IVPUSH Q2H PRN PRN Reason: Breakthrough Pain Morphine Sulfate (Duramorph Pf) Confirm Administered Dose 10 mg .ROUTE .STK-MED ONE Stop: 11/02/16 10:21 Multivitamins (Thera) 1 each PO WITHBREAKFAST [facility] Last Admin: 11/03/16 07:25 Dose: 1 each Naloxone HCl (Narcan) 0.1 mg IVPUSH Q5M PRN PRN Reason: Oversedation Stop: 11/02/16 12:16 Non-Formulary Medication (Tadalafil [Cialis]) 10 mg PO ASDIRECTED PRN PRN Reason: erectile dysfuction Ondansetron HCl (Zofran) 4 mg IVPUSH Q6H PRN PRN Reason: Nausea/Vomiting Ondansetron HCl (Zofran) 4 mg IVPUSH ONETIME PRN PRN Reason: Nausea/Vomiting Stop: 11/02/16 18:00 Oxycodone/Acetaminophen (Percocet 325-5 Mg) 1 - 2 tab PO Q4H PRN PRN Reason: Pain Last Admin: 11/03/16 13:40 Dose: 2 tab Propofol (Diprivan 20 Ml) Confirm Administered Dose 200 mg .ROUTE .STK-MED ONE Stop: 11/02/16 09:34 Propofol (Diprivan 20 Ml) Confirm Administered Dose 400 mg .ROUTE .STK-MED ONE Stop: 11/02/16 11:26 Senna (Senna) 8.6 mg PO BID PRN PRN Reason: Constipation Sodium Chloride (Saline Flush) 10 ml FLUSH ASDIRECTED PRN PRN Reason: Keep Vein Open Tamsulosin HCl (Flomax) 0.4 mg PO BIDPC [facility] Last Admin: 11/03/16 08:58 Dose: 0.4 mg Tranexamic Acid (Cyklokapron) Confirm Administered Dose 1,000 mg .ROUTE .STK- MED ONE Stop: 11/02/16 09:47 Last Admin: 11/02/16 12:28 Dose: 1,000 mg - Exam Wound/Incisions: healing well, dressing dry and intact General: alert, oriented Extremities: no edema, normal pulses, no cyanosis, no calf tenderness Skin: warm, dry Neurological: no new focal deficit, strength equal bilateral, reflexes equal bilateral, sensation intact Psy/Mental Status: alert, normal affect, normal mood - Problem List & Annotations (1) S/P total knee arthroplasty SNOMED Code(s): 9999224124639, 334591828, 0063487753277 Code(s): Z96.659 - PRESENCE OF UNSPECIFIED ARTIFICIAL KNEE JOINT Status: Acute Priority: High Qualifiers: Laterality: right Qualified Code(s): Z96.651 - Presence of right artificial knee joint - Problem List Review Problem List Initiated/Reviewed/Updated: Yes - Assessment Assessment (Free Text/Narrative):: 61yo M doing well is POD #1 S/P Right TKA - Plan Plan (Free Text/Narrative):: 1. Continue ASA 325mg BID 2. Patient voiding now. 3. Hg is stable at 12.7 4. Patient cleared by PT/OT Continue PT upon discharge. 5. Further orders per Hospitalist services. 6. Patient cleared for discharge. 7. The pt's case was discussed with Dr. Hargrove.
--- NOTE | 2016-11-05 18:28 | PCM.DCSUM1 ---
Discharge Summary - Hospital Course Brief History: Ascencion is a 61 yo male who underwent right TKA with Dr. Hargrove on . The procedure was completed under spinal anesthesia. The pt tolerated the procedure well and was admitted to [facility] under Medical-Surgical status. Medical management was provided by the Hospitalist service. The pt's Hospital course was uneventful. The pt's Hgb on POD#1 was 12.7. On POD#1, 325mg ASA BID was initiated for VTE prophylaxis. A Mepilex dressing was placed at the incision site at the time of surgery and remained clean and dry. The pt participated in P.T. and O.T. and progressed well. The pt was allowed to WBAT and used a FWW for mobility. On POD#1, the pt was deemed appropriate to discharge to home. - Discharge Data Discharge Date: 11/03/16 Discharge Disposition: Home, Self-Care 01 Condition: Good - Patient Summary/Data Operative Procedure(s) Performed: Excision of cyst/mass from right medial knee Consults: Consultations 11/02/16 06:55 Consult to Case Management [CONS] Routine Consult to Physician [CONS] Routine OT Evaluation and Treatment [CONS] Routine 11/02/16 06:58 PT Evaluation and Treatment [CONS] Routine - Patient Instructions Diet: Usual Diet as Tolerated Activity: Apply Ice, As Tolerated, Elevate Extremity, Full Weight Bearing Driving: Do Not Drive Showering/Bathing: May Shower Wound/Incision Care: Keep Operative Site/Wound Site Clean and Dry, Do NOT Change Dressing Notify Provider of: Fever, Increased Pain, Swelling and Redness, Drainage, Nausea and/or Vomiting Other/Special Instructions: Please get up and moving around every hour while awake. This helps to prevent blood clots. Please take 325mg aspirin twice daily - this also helps to prevent blood clots. The medication is being used for blood clot prevention and not for pain control, so please use the medication twice daily as directed. Please wear the MARVIN hose during the day and you may remove them at night. Please schedule for P.T. Complete the P.T. exercises and stretches that were instructed in the Hospital. Please use the pain medication and muscle relaxant as needed. The medication may cause drowsiness and/or constipation. You could use a stool softener like docusate sodium or Colace 100mg twice daily and/or a laxative like polyethylene glycol or Miralax daily for constipation. Contact your primary care provider for further instructions if you are constipated. Please schedule an appointment with your primary care provider for 'routine post-op care'. Use the incentive spirometer often. Please place ice to the knee often. Please elevate the limb to decrease swelling. Keep the Mepilex dressing in place until follow-up. Please call [phone] with questions or concerns. - Discharge Plan Prescriptions/Med Rec: Acetaminophen/oxyCODONE [Percocet 325-5 MG] 1 - 2 tab PO Q4H PRN #60 tablet PRN Reason: Pain Aspirin [Ecotrin] 325 mg PO BID #84 tab.ec Cyclobenzaprine [Flexeril] 10 mg PO TID PRN #40 tablet PRN Reason: muscle spasms Tamsulosin [Flomax] 0.4 mg PO BIDPC #60 cap.er Home Medications: Home Meds Nebivolol HCl [Bystolic] 10 mg PO DAILY 02/25/16 [History] Hydrochlorothiazide 25 mg PO DAILY 09/16/16 [History] Lisinopril 10 mg PO DAILY 09/16/16 [History] Tadalafil [Cialis] 10 mg PO ASDIRECTED PRN 09/16/16 [History] amLODIPine [Norvasc] 10 mg PO DAILY 09/16/16 [History] Acetaminophen/oxyCODONE [Percocet 325-5 MG] 1 - 2 tab PO Q4H PRN #60 tablet [Rx] Aspirin [Ecotrin] 325 mg PO BID #84 tab.ec 11/03/16 [Rx] Cyclobenzaprine [Flexeril] 10 mg PO TID PRN #40 tablet 11/03/16 [Rx] Tamsulosin [Flomax] 0.4 mg PO BIDPC #60 cap.er 11/03/16 [Rx] Patient Handouts: Total Knee Replacement, Care After, [id number], Total Knee Replacement, [id number], Aspirin, ASA oral tablets, Knee Rehabilitation Guidelines Following Surgery, Acute Urinary Retention, Male, [id number] Referrals: Jess Chavez PA-C [Physician Customer Engagement Specialist] - - Patient Data Vitals - Most Recent: Last Vital Signs Temp 99.3 F 11/03/16 15:13 Pulse 101 H 11/03/16 15:13 Resp 18 11/03/16 12:00 BP 162/79 H 11/03/16 15:13 Pulse Ox 91 L 11/03/16 15:13 Weight - Most Recent: 325 lb Med Orders - Current: Current Medications Discontinued Medications Amlodipine Besylate (Norvasc) 10 mg PO DAILY [facility] Last Admin: 11/03/16 09:02 Dose: 10 mg Aspirin (Ecotrin) 325 mg PO BID [facility] Last Admin: 11/03/16 09:03 Dose: 325 mg Bisacodyl (Dulcolax) 5 mg PO DAILY PRN PRN Reason: Constipation Bumetanide (Bumex) 1 mg IVPUSH ONETIME ONE Stop: 11/02/16 17:04 Last Admin: 11/02/16 17:40 Dose: 1 mg Bupivacaine HCl (Marcaine 0.25%) Confirm Administered Dose 30 ml .ROUTE .STK- MED ONE Stop: 11/02/16 09:48 Last Admin: 11/02/16 12:23 Dose: 30 ml Carvedilol (Coreg) 6.25 mg PO DAILY [facility] Last Admin: 11/03/16 08:59 Dose: 6.25 mg Cefazolin Sodium (Ancef) Confirm Administered Dose 2 gm .ROUTE .STK-MED ONE Stop: 11/02/16 09:34 Last Admin: 11/02/16 12:18 Dose: 2 gm Cefazolin Sodium (Ancef) Confirm Administered Dose 1 gm .ROUTE .STK-MED ONE Stop: 11/02/16 09:48 Cefazolin Sodium (Ancef) Confirm Administered Dose 1 gm .ROUTE .STK-MED ONE Stop: 11/02/16 09:50 Cefazolin Sodium (Ancef) Confirm Administered Dose 1 gm .ROUTE .STK-MED ONE Stop: 11/02/16 10:21 Morphine Sulfate 8 mg/Epinephrine HCl 0.3 mg/Cefuroxime Sodium 750 mg/Ketorolac Tromethamine 30 mg/Sodium Chloride 27.9 ml 0 mg .XX ONETIME ONE Stop: 11/02/16 10:46 Last Admin: 11/02/16 12:22 Dose: 788.3 mg Cyclobenzaprine HCl (Flexeril) 10 mg PO TID PRN PRN Reason: Spasms Last Admin: 11/03/16 07:25 Dose: 10 mg Diphenhydramine HCl (Benadryl) 25 mg IVPUSH Q6H PRN PRN Reason: pruritis Stop: 11/02/16 18:00 Docusate Sodium (Colace) 100 mg PO BID [facility] Last Admin: 11/03/16 08:58 Dose: 100 mg Famotidine (Pepcid) 20 mg PO Q12H [facility] Last Admin: 11/03/16 09:03 Dose: 20 mg Fentanyl (Sublimaze) Confirm Administered Dose 100 mcg .ROUTE .STK-MED ONE Stop: 11/02/16 09:34 Fentanyl (Sublimaze) 50 mcg IVPUSH Q5M PRN PRN Reason: Pain Stop: 11/02/16 18:00 Hydrochlorothiazide (Hydrochlorothiazide) 25 mg PO DAILY [facility] Last Admin: 11/03/16 09:03 Dose: 25 mg Lactated Ringer's (Ringers, Lactated) 1,000 mls @ 125 mls/hr IV ASDIRECTED [facility] Last Admin: 11/02/16 09:00 Dose: 125 mls/hr Cefazolin Sodium/Dextrose 2 gm (/ Premix) 50 mls @ 100 mls/hr IV Q8H [facility] Stop: 11/03/16 09:59 Last Admin: 11/03/16 09:05 Dose: 100 mls/hr Lidocaine HCl (Xylocaine-Mpf 1%) Confirm Administered Dose 4 mls @ as directed .ROUTE .STK-MED ONE Stop: 11/02/16 09:33 Lactated Ringer's (Ringers, Lactated) Confirm Administered Dose 1,000 mls @ as directed .ROUTE .STK-MED ONE Stop: 11/02/16 11:06 Lactated Ringer's (Ringers, Lactated) Confirm Administered Dose 1,000 mls @ as directed .ROUTE .STK-MED ONE Stop: 11/02/16 11:06 Cefazolin Sodium/Dextrose 1 gm (/ Premix) 50 mls @ 100 mls/hr IV Q8H [facility] Stop: 11/03/16 09:59 Last Admin: 11/03/16 10:26 Dose: 100 mls/hr Iodine (Iodine 2% Mild Tincture) Confirm Administered Dose 30 ml .ROUTE .STK- MED ONE Stop: 11/02/16 09:48 Last Admin: 11/02/16 12:12 Dose: 18 ml Lidocaine HCl (Xylocaine 2% Jelly) Confirm Administered Dose 10 ml .ROUTE .STK- MED ONE Stop: 11/02/16 16:38 Lidocaine/Sodium Bicarbonate (Buffered Lidocaine 1% In Ns 8.4%) 0.25 ml IV ONETIME PRN PRN Reason: Prior to IV Start Last Admin: 11/02/16 08:59 Dose: 0.25 ml Lisinopril (Prinivil) 10 mg PO DAILY [facility] Last Admin: 11/03/16 09:02 Dose: 10 mg Magnesium Hydroxide (Milk Of Magnesia) 30 ml PO BID PRN PRN Reason: Constipation Meperidine HCl (Demerol) 12.5 mg IVPUSH ONETIME PRN PRN Reason: shivering Stop: 11/03/16 12:16 Midazolam HCl (Versed 1 Mg/Ml) Confirm Administered Dose 2 mg .ROUTE .STK-MED ONE Stop: 11/02/16 09:34 Midazolam HCl (Versed 1 Mg/Ml) Confirm Administered Dose 2 mg .ROUTE .STK-MED ONE Stop: 11/02/16 11:08 Morphine Sulfate (Morphine) 2 mg IVPUSH Q2H PRN PRN Reason: Breakthrough Pain Morphine Sulfate (Duramorph Pf) Confirm Administered Dose 10 mg .ROUTE .STK-MED ONE Stop: 11/02/16 10:21 Multivitamins (Thera) 1 each PO WITHBREAKFAST [facility] Last Admin: 11/03/16 07:25 Dose: 1 each Naloxone HCl (Narcan) 0.1 mg IVPUSH Q5M PRN PRN Reason: Oversedation Stop: 11/02/16 12:16 Non-Formulary Medication (Tadalafil [Cialis]) 10 mg PO ASDIRECTED PRN PRN Reason: erectile dysfuction Ondansetron HCl (Zofran) 4 mg IVPUSH Q6H PRN PRN Reason: Nausea/Vomiting Ondansetron HCl (Zofran) 4 mg IVPUSH ONETIME PRN PRN Reason: Nausea/Vomiting Stop: 11/02/16 18:00 Oxycodone/Acetaminophen (Percocet 325-5 Mg) 1 - 2 tab PO Q4H PRN PRN Reason: Pain Last Admin: 11/03/16 13:40 Dose: 2 tab Propofol (Diprivan 20 Ml) Confirm Administered Dose 200 mg .ROUTE .STK-MED ONE Stop: 11/02/16 09:34 Propofol (Diprivan 20 Ml) Confirm Administered Dose 400 mg .ROUTE .STK-MED ONE Stop: 11/02/16 11:26 Senna (Senna) 8.6 mg PO BID PRN PRN Reason: Constipation Sodium Chloride (Saline Flush) 10 ml FLUSH ASDIRECTED PRN PRN Reason: Keep Vein Open [facility] Last Admin: 11/03/16 08:58 Dose: 0.4 mg Tranexamic Acid (Cyklokapron) Confirm Administered Dose 1,000 mg .ROUTE .STK- MED ONE Stop: 11/02/16 09:47 Last Admin: 11/02/16 12:28 Dose: 1,000 mg *Q Meaningful Use (DIS) - VTE *Q VTE Criteria *Q: - Stroke *Q Stroke Criteria *Q: - AMI *Q AMI Criteria *Q:
--- NOTE | 2016-11-11 22:31 | PCM.OPNOTE ---
- General Post-Op/Procedure Note Date of Surgery/Procedure: 11/02/16 Operative Procedure(s): right total knee arthroplasty Pre Op Diagnosis: right knee osteoarthrosis Post-Op Diagnosis: Same Anesthesia Technique: Local, MAC, Spinal Primary Surgeon: Bharat Hargrove Anesthesia Provider: Michelle Gibbs Lab Clerk: Jess Chavez Lab Clerk: Jigna Guardado EBL in mLs: 600 Complications: None Condition: Good
--- NOTE | 2016-11-11 23:02 | OR ---
DATE OF OPERATION: 11/02/2016 SURGEON: Bharat Hargrove MD OPERATION PERFORMED: Right total knee arthroplasty. PREOPERATIVE DIAGNOSIS: Right knee osteoarthrosis. POSTOPERATIVE DIAGNOSIS: Right knee osteoarthrosis. ANESTHESIA: Local MAC with spinal. ANESTHESIA PROVIDER: Michelle Gibbs. COUTIERIER: Jess Chavez PA-C and Jigna Guardado MD ESTIMATED BLOOD LOSS: 600 mL COMPLICATIONS: None. CONDITION: Stable. IMPLANTS: 1. [place] size 8 PS femur. 2. [place] size 7 universal tibial baseplate. 3. [place] size 7 11 mm X3 PS polyethylene. 4. 32 x 10 mm asymmetric Chichi patella. DESCRIPTION OF PROCEDURE: The patient was identified in the preop holding area. Proper site was marked and identified by the surgeon. The patient was taken back to the operating theater. After adequate anesthesia, the patient's right lower extremity had a nonsterile tourniquet applied and it was then sterilely prepped and draped in the usual sterile fashion. OR timeout was performed. The patient received 2 g IV Ancef. At this time, right lower extremity was exsanguinated. Tourniquet was insufflated to 300 mmHg. Standard medial parapatellar incision was made. Medial parapatellar arthrotomy was created. Deep fibers of the MCL were raised and anterior fat pad was resected. At this time, attention was turned to the patella. Patella measured 24, it was resected to a 14 for a 32 x 10 mm patella. Drill holes were then drilled and found to be in adequate position. The drill was then drilled in the distal femur and the intramedullary distal femoral cutting guide was then placed. 10 mm was resected off the distal femur and was found to be an adequate resection. Sizing guide was placed. It was found to be a size femur that was shown on the implant record at the beginning of this dictation. The drill holes were drilled for the epicondylar axis using Whitesides line and epicondyles as reference. At this time, the 4-in-1 cutting block was placed. An anterior posterior and anterior and posterior chamfer cuts were then completed. The correct size box cut was then placed and the box cut was completed and found to be an adequate resection. Attention was turned to the tibia. The posterior medial lateral retractors were placed. The extramedullary tibial guide was placed. It was placed in the old footprint of the ACL. It was aligned with the center of the ankle and 0 degrees of slope, 9 mm was then resected off the unaffected lateral side. There was found to be an acceptable reduction. At this time, posterior osteophytes were removed along with medial and lateral meniscus. A trial implant was placed with a correct sized tibia that was mentioned at the beginning of the dictation. An 11 mm trial spacer was placed. The patient's knee was brought through range of motion. The patella was tracking centrally and was stable to varus and valgus stress. Alignment was found to be roughly at 0 degrees. At this time, cement was mixed on the back table. The tibia was stamped and drilled in proper rotation. All cut surfaces were irrigated with pulse lavage irrigation with Ancef and then completely dried. Once this was completed, then the cement was ready. The universal tibial base plate was cemented in place. Next, the femur cemented into place and An 11 mm X3 polyethylene was placed. The patient's knee was brought into full extension. Excess cement was removed. The patella was then cemented in place at this time. Tourniquet was deflated. One liter dilute Betadine solution was irrigated through the knee along with 3 L of pulse lavage irrigation with Ancef. Periarticular injection was then completed. The patient's knee was brought through a range of motion. Once the cement had time to set up and it was found to be stable to varus valgus stress, the patella was tracking centrally with full range of motion. At this time, a #2 barbed suture was used for closure of the medial parapatellar arthrotomy. Topical tranexamic acid was placed. 2-0 Vicryl was used subcutaneously, a running 3-0 Monocryl was used subcuticularly. The patient tolerated the procedure well and was sent to the PACU in stable condition. MMLIZ /[id number] MAHAD
== END 2016-11-03 15:20 | disposition home or self-care (01) | DRG 302 ==
LOC: JD.OB 11-02 08:31
PROVIDERS: ADMIT Orthopaedic Surgery; ATTEND Orthopaedic Surgery
PROC: 0SRC0J9 Replacement of Right Knee Joint with Synthetic Substitute, Cemented, Open Approach (ICD-10-PCS; principal; 2016-11-02)
DX: M17.0 Bilateral primary osteoarthritis of knee (principal); R33.9 Retention of urine, unspecified; I10 Essential (primary) hypertension; G47.33 Obstructive sleep apnea (adult) (pediatric); E66.01 Morbid (severe) obesity due to excess calories; Z68.30 Body mass index [BMI] 30.0-30.9, adult; K21.9 Gastro-esophageal reflux disease without esophagitis; M81.0 Age-related osteoporosis without current pathological fracture; Z79.899 Other long term (current) drug therapy; Z88.1 Allergy status to other antibiotic agents; Z88.2 Allergy status to sulfonamides
CPT/HCPCS: 01402; 36415; 73560-26-RT; 73560-RT; 80053; 85025; 87641; 94762; 97110-GP; 97116-GP; 97161-GP; 97165-GO; 97535-GO; 99232; 99254; A9270-GY; C1713; C1776; J0171; J0690; J0697; J1885; J2250; J2270; J2704; J3010; J3490; J7120

== ENCOUNTER 2016-11-21 09:47 | Emergency (ER) | payer BC ==
[2016-11-21 10:24] VITALS: BP 137/77
--- NOTE | 2016-11-21 11:41 | EDM.PDOC ---
ED HPI GENERAL MEDICAL PROBLEM - General Chief Complaint: Wound Recheck Stated Complaint: REDNESS/SWELLING POST OP OF RIGHT KNEE Time Seen by Provider: 11/21/16 10:20 Source of Information: Reports: Patient, Family (Spouse), RN Notes Reviewed - History of Present Illness INITIAL COMMENTS - FREE TEXT/NARRATIVE: 61-year-old male comes in with redness and swelling right leg. He states he just noticed that this morning. He does have history of a "cyst" that became red and inflamed many months ago. He states he was treated with an antibiotic and that it did go down. He then did have the cyst surgically removed about 2 months ago followed by total knee replacement about one month ago. He states his surgery went very well and has been doing well postoperatively, rehabbing the knee without difficulty or complications. However he does notice fairly large area of redness and swelling area of prior cyst this morning. He states there has been some swelling there chronically even since the cyst removal. However the swelling now is worse this morning. No fever or chills. There's been no drainage. His right knee does not feel any more painful than what it has been. Continues to ambulate this morning without increased pain from what his been over the past week or so. He's had no other unusual symptomatology. Treatments SEO STRATEGIST: Reports: Acetaminophen - Related Data Allergies Allergy/AdvReac Type Severity Reaction Status Date / Time erythromycin base Allergy Hives Verified 10/30/16 12:04 sulfamethoxazole Allergy Hives Verified 10/30/16 12:04 [From Bactrim] trimethoprim [From Bactrim] Allergy Hives Verified 10/30/16 12:04 Home Meds: Home Meds Nebivolol HCl [Bystolic] 10 mg PO DAILY 02/25/16 [History] Hydrochlorothiazide 25 mg PO DAILY 09/16/16 [History] Lisinopril 10 mg PO DAILY 09/16/16 [History] Tadalafil [Cialis] 10 mg PO ASDIRECTED PRN 09/16/16 [History] amLODIPine [Norvasc] 10 mg PO DAILY 09/16/16 [History] Acetaminophen/oxyCODONE [Percocet 325-5 MG] 1 - 2 tab PO Q4H PRN #60 tablet [Rx] Aspirin [Ecotrin] 325 mg PO BID #84 tab.ec 11/03/16 [Rx] Cyclobenzaprine [Flexeril] 10 mg PO TID PRN #40 tablet 11/03/16 [Rx] Tamsulosin [Flomax] 0.4 mg PO BIDPC #60 cap.er 11/03/16 [Rx] Past Medical History HEENT History: Reports: Otitis Media, Other (See Below) Other HEENT History: bacterial conjunctivitis, otitis media, wears glasses Cardiovascular History: Reports: Hypertension Respiratory History: Reports: Sleep Apnea, Other (See Below) Other Respiratory History: snoring Gastrointestinal History: 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, GERD Genitourinary History: 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, Other (See Below) Other Genitourinary History: urethral stricture FOOT AND ANKLE SURGEON History: 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 Musculoskeletal History: Reports: Arthritis, Osteoporosis, Other (See Below) Other Musculoskeletal History: bilateral degenerative arthritis of bilateral knees, R knee mass Neurological History: Reports: Migraines Psychiatric History: 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 Endocrine/Metabolic History: Reports: Obesity/BMI 30+ Hematologic History: 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 Immunologic History: 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 Oncologic (Cancer) History: 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 Dermatologic History: 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 - Past Surgical History Head Surgeries/Procedures: 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 Cardiovascular Surgical History: 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 GI Surgical History: 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 Endocrine Surgical History: 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 Neurological Surgical History: 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 Musculoskeletal Surgical History: Reports: Arthroscopic Knee, Knee Replacement, Other (See Below) Other Musculoskeletal Surgeries/Procedures:: right knee replacement, begnin cyst removed from medial aspect of right knee. Oncologic Surgical History: 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 Dermatological Surgical History: 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 - Past Imaging History Past Imaging History: 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 Social & Family History - Family History Family Medical History: Noncontributory - Tobacco Use Smoking Status *Q: Never Smoker Second Hand Smoke Exposure: No - Caffeine Use Caffeine Use: Reports: Soda - Alcohol Use Days Per Week of Alcohol Use: 1 Number of Drinks Per Day: 3 Total Drinks Per Week: 3 - Recreational Drug Use Recreational Drug Use: No ED ROS GENERAL - Review of Systems Review Of Systems: See Below Constitutional: Denies: Fever, Chills HEENT: Reports: No Symptoms Respiratory: Denies: Shortness of Breath Cardiovascular: Denies: Chest Pain GI/Abdominal: Denies: Abdominal Pain, Nausea, Vomiting Musculoskeletal: Reports: Other (Area of redness and swelling right leg distal and medial to the knee). Denies: Joint Pain Skin: Reports: Erythema (Right) Neurological: Denies: Numbness, Tingling ED EXAM, GENERAL - Physical Exam Exam: See Below Exam Limited By: No Limitations General Appearance: Alert, No Apparent Distress Throat/Mouth: Normal Inspection Head: Atraumatic Neck: Supple, Full Range of Motion Respiratory/Chest: No Respiratory Distress, Lungs Clear Cardiovascular: Regular Rate, Rhythm Extremities: Redness (There's an area of erythema and swelling and soft tissue tenderness medial proximal leg distal to the knee about 8-10 cm in diameter), Other (Healing incision right anterior knee, incision is noninflamed, swollen, no drainage, he is nontender at this time, pretty decent range of motion with minimal discomfort) Neurological: Alert, No Motor/Sensory Deficits Skin Exam: No Rash Course - Vital Signs Last Recorded V/S: Last Vital Signs Temp 98.7 F 11/21/16 10:16 Pulse 96 11/21/16 10:16 Resp 18 11/21/16 10:16 BP 137/77 11/21/16 10:16 Pulse Ox 96 11/21/16 10:16 - Orders/Labs/Meds Orders: Active Orders 24 hr Category Date Time Status CULTURE BLOOD [BC] Stat Lab 11/21/16 10:54 Received Labs: Laboratory Tests 11/21/16 11/21/16 11/21/16 Range/Units 10:54 10:54 10:54 WBC 13.97 H (4.23-9.07) K/mm3 RBC 4.54 L (4.63-6.08) M/mm3 Hgb 12.9 L (13.7-17.5) gm/L Hct 40.5 (40.1-51.0) % MCV 89.2 (79.0-92.2) fl MCH 28.4 (25.7-32.2) pg MCHC 31.9 L (32.2-35.5) g/dl RDW Std Deviation 45.8 H (35.1-43.9) fL Plt Count 438 H (163-337) K/mm3 MPV 8.9 L (9.4-12.3) fl Neut % (Auto) 81.3 H (34.0-67.9) % Lymph % (Auto) 9.2 L (21.8-53.1) % [place] % (Auto) 8.7 (5.3-12.2) % Eos % (Auto) 0.6 L (0.8-7.0) Baso % (Auto) 0.1 (0.1-1.2) % Neut # (Auto) 11.35 H (1.78-5.38) K/mm3 Lymph # (Auto) 1.28 L (1.32-3.57) K/mm3 [place] # (Auto) 1.21 H (0.30-0.82) K/mm3 Eos # (Auto) 0.09 (0.04-0.54) K/mm3 Baso # (Auto) 0.02 (0.01-0.08) K/mm3 Manual Slide Review Normal smear Sodium 142 (136-145) mEq/L Potassium 4.0 (3.5-5.1) mEq/L Chloride 107 (98-107) mEq/L Carbon Dioxide 27 (21-32) mEq/L Anion Gap 12.0 (5-15) BUN 11 (7-18) mg/dL Creatinine 0.9 (0.7-1.3) mg/dL Est Cr Clr Drug Dosing 92.96 mL/min Estimated GFR (MDRD) > 60 (>60) mL/min BUN/Creatinine Ratio 12.2 L (14-18) Glucose 113 H (74-106) mg/dL Calcium 8.7 (8.5-10.1) mg/dL Total Bilirubin 0.7 (0.2-1.0) mg/dL AST 14 L (15-37) U/L ALT 25 (16-63) U/L Alkaline Phosphatase 86 (46-116) U/L C-Reactive Protein 9.1 H* (<1.0) mg/dL Total Protein 7.3 (6.4-8.2) g/dl Albumin 2.8 L (3.4-5.0) g/dl Globulin 4.5 gm/dL Albumin/Globulin Ratio 0.6 L (1-2) Meds: Medications Discontinued Medications Generic Name Dose Route Start Last Admin Trade Name Freq PRN Reason Stop Dose Admin Clindamycin HCl 450 mg 11/21/16 11:50 11/21/16 11:59 Cleocin PO 11/21/16 11:51 450 mg ONETIME ONE Administration Doxycycline Hyclate 200 mg 11/21/16 11:50 11/21/16 12:01 Vibramycin PO 11/21/16 11:51 200 mg ONETIME ONE Administration - Re-Assessments/Exams Free Text/Narrative Re-Assessment/Exam: 11/21/16 12:31 labs as documented. WBC and CRP mildly elevated. He has good joint motion without increased pain, walking without difficulty this morning.I have discussed this with Dr Hargrove, his Orthopedist. He advises treating this with outpatient oral abx, follow up clinic Wednesday, 3 days from now, discharge instr. as documented. Departure - Departure Time of Disposition: 12:12 Disposition: Home, Self-Care 01 Condition: fair Clinical Impression: Cellulitis Qualifiers: Site of cellulitis: extremity Site of cellulitis of extremity: lower extremity Laterality: right Qualified Code(s): L03.115 - Cellulitis of right lower limb - Discharge Information Instructions: Cellulitis, Adult Referrals: Adrián Vance PA-C [Primary Care Provider] - Forms: ED Department Discharge Additional Instructions: Restless leg and knee for now, light activity as tolerated is acceptable. Doxycycline 200 mg twice daily. Your first dose was given here in the ED. Clindamycin 450 mg 3 times daily. Your first dose for today was given here in the ED. Take another dose around 4:00 this afternoon and then your evening dose prior to bedtime. See Gricel Campos at clinic Wednesday for recheck, return to ED if he did start running a fever, if you feel like the infection is getting into your knee joint, if you start having severe knee pain with motion or ambulation. - My Orders Last 24 Hours: My Active Orders 11/21/16 10:54 CULTURE BLOOD [BC] Stat - Assessment/Plan Last 24 Hours: My Active Orders 11/21/16 10:54 CULTURE BLOOD [BC] Stat
[2016-11-21] MEDS ORDERED: Clindamycin HCl 150 MG Cap PO ONE (11:50)
[2016-11-21] MEDS ORDERED: Doxycycline 100 MG Cap PO ONE (11:50)
== END 2016-11-21 12:28 | disposition home or self-care (01) ==
LOC: JD.ED 09:47
DX: L03.115 Cellulitis of right lower limb (principal); I10 Essential (primary) hypertension; K21.9 Gastro-esophageal reflux disease without esophagitis; M19.90 Unspecified osteoarthritis, unspecified site; E66.9 Obesity, unspecified; G43.909 Migraine, unspecified, not intractable, without status migrainosus; Z88.1 Allergy status to other antibiotic agents; Z88.2 Allergy status to sulfonamides; Z88.8 Allergy status to other drugs, medicaments and biological substances; Z79.82 Long term (current) use of aspirin; Z79.899 Other long term (current) drug therapy
CPT/HCPCS: 36415; 80053; 85025; 86140; 87040; 99284; A9270; 99283

== ENCOUNTER 2016-11-21 16:54 | Inpatient (IN) | payer BC ==
[2016-11-21] MEDS ORDERED: Sodium Chloride 0.9% 10 ML Syringe FLUSH PRN (17:29)
[2016-11-21] MEDS ORDERED: Acetaminophen 325 MG Tab PO ONE (17:30)
[2016-11-21] MEDS ORDERED: Piperacillin/Tazobactam 4.5 GM in Sodium Chloride 0.9% 100 ML IV ONE (17:31)
--- NOTE | 2016-11-21 17:31 | EDM.PDOC ---
ED HPI GENERAL MEDICAL PROBLEM - General Chief Complaint: Fever Stated Complaint: FEVER-RECHECK Time Seen by Provider: 11/21/16 17:18 Source of Information: Reports: Patient, RN Notes Reviewed - History of Present Illness INITIAL COMMENTS - FREE TEXT/NARRATIVE: 7-year-old male returns to the ED with worsening cellulitis of the right leg and now new onset of fever and chills . He was evaluated about 5 or 6 hours ago earlier today are new onset erythema and swelling consistent with cellulitis right lower leg. See that record for details. OF Concern he had total right knee replacement less than 3 weeks ago. I did discuss this with Dr. Kogn, his Orthopedist who felt that it would be safe to treat him outpatient with oral antibiotics. We did give him clindamycin 450 mg orally while here in the ED and also doxycycline 200 mg orally. He went back to his home in [place], had an hour nap, awakened with a temp of around 102.7. The area of swelling and erythema of his leg seemed to be enlarging. He was advised to return. He states that he continues to feel some tightness in the area of swelling and inflammation but continues to have no knee pain. He does not have pain with motion of the leg at the knee joint other than some tightness which he has been having postoperatively. He is not diabetic. There has been no drainage of fluid. Right Knee Pain Score (Numeric/FACES): 2 - Related Data Allergies Allergy/AdvReac Type Severity Reaction Status Date / Time erythromycin base Allergy Hives Verified 11/21/16 17:23 sulfamethoxazole Allergy Hives Verified 11/21/16 17:23 [From Bactrim] trimethoprim [From Bactrim] Allergy Hives Verified 11/21/16 17:23 Home Meds: Home Meds Nebivolol HCl [Bystolic] 10 mg PO DAILY 02/25/16 [History] Hydrochlorothiazide 25 mg PO DAILY 09/16/16 [History] Lisinopril 10 mg PO DAILY 09/16/16 [History] Tadalafil [Cialis] 10 mg PO ASDIRECTED PRN 09/16/16 [History] amLODIPine [Norvasc] 10 mg PO DAILY 09/16/16 [History] Acetaminophen/oxyCODONE [Percocet 325-5 MG] 1 - 2 tab PO Q4H PRN #60 tablet [Rx] Aspirin [Ecotrin] 325 mg PO BID #84 tab.ec 11/03/16 [Rx] Cyclobenzaprine [Flexeril] 10 mg PO TID PRN #40 tablet 11/03/16 [Rx] Tamsulosin [Flomax] 0.4 mg PO BIDPC #60 cap.er 11/03/16 [Rx] Past Medical History HEENT History: Reports: Otitis Media, Other (See Below) Other HEENT History: bacterial conjunctivitis, otitis media, wears glasses Cardiovascular History: Reports: Hypertension Respiratory History: Reports: Sleep Apnea, Other (See Below) Other Respiratory History: snoring Gastrointestinal History: 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, GERD Genitourinary History: 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, Other (See Below) Other Genitourinary History: urethral stricture [employer] History: 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 Musculoskeletal History: Reports: Arthritis, Osteoporosis, Other (See Below) Other Musculoskeletal History: bilateral degenerative arthritis of bilateral knees, R knee mass Neurological History: Reports: Migraines Psychiatric History: 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 Endocrine/Metabolic History: Reports: Obesity/BMI 30+ Hematologic History: 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 Immunologic History: 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 Oncologic (Cancer) History: 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 Dermatologic History: 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 - Past Surgical History Head Surgeries/Procedures: 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 Cardiovascular Surgical History: 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 GI Surgical History: 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 Endocrine Surgical History: 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 Neurological Surgical History: 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 Musculoskeletal Surgical History: Reports: Arthroscopic Knee, Knee Replacement, Other (See Below) Other Musculoskeletal Surgeries/Procedures:: right knee replacement, begnin cyst removed from medial aspect of right knee. Oncologic Surgical History: 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 Dermatological Surgical History: 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 - Past Imaging History Past Imaging History: 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 Social & Family History - Family History Family Medical History: Noncontributory - Tobacco Use Smoking Status *Q: Never Smoker Second Hand Smoke Exposure: No - Caffeine Use Caffeine Use: Reports: Soda - Alcohol Use Days Per Week of Alcohol Use: 1 Number of Drinks Per Day: 3 Total Drinks Per Week: 3 - Recreational Drug Use Recreational Drug Use: No ED ROS GENERAL - Review of Systems Review Of Systems: See Below Constitutional: Reports: Fever, Chills HEENT: Denies: Sinus Problem, Throat Pain Respiratory: Denies: Shortness of Breath Cardiovascular: Denies: Chest Pain GI/Abdominal: Denies: Abdominal Pain, Diarrhea, Nausea, Vomiting : Reports: No Symptoms Musculoskeletal: Reports: Other (The area of erythema of his right lower leg has increased in size on his visit to the ED here just 4-5 hours ago). Denies: Leg Pain, Foot Pain, Joint Pain (No major joint discomfort) Skin: Reports: Erythema (Large area of erythema and swelling right lower leg) Neurological: Denies: Numbness, Tingling, Weakness ED EXAM, SEPSIS - Physical Exam Exam: See Below General Appearance: Alert, No Apparent Distress Throat/Mouth: Normal Inspection, Normal Oropharynx Head: Atraumatic Neck: Supple Respiratory/Chest: No Respiratory Distress, Lungs Clear, Normal Breath Sounds Cardiovascular: Regular Rate, Rhythm GI/Abdominal: Soft, Non-Tender. No: Guarding Back: No: CVA Tenderness (L), CVA Tenderness (R) Extremities: Non-Tender (He is totally nontender, there is no swelling or effusion of the knee, the incision line looks good almost not inflamed or swollen, good knee range of motion with some tightness type sensation but no pain), Redness (There is erythema and swelling distal to his right knee and also medial involving the proximal right lower leg. This area is warm to the touch. The skin over this area is tensely swollen but there does seem to be some mild fluctuance. No drainage). No: Pedal Edema, Leg Pain Neurological: No Motor/Sensory Deficits Skin: Warm, Dry Course - Vital Signs Last Recorded V/S: Last Vital Signs Temp 103.0 F H 11/21/16 18:38 Pulse 100 11/21/16 17:23 Resp 20 11/21/16 17:23 BP 144/63 H 11/21/16 17:23 Pulse Ox 95 11/21/16 17:23 - Orders/Labs/Meds Orders: Active Orders 24 hr Category Date Time Status Peripheral IV Care [RC] . DIRECTED Care 11/21/16 17:30 Active CULTURE BLOOD [BC] Stat Lab 11/21/16 17:39 Ordered CULTURE BLOOD [BC] Stat Lab 11/21/16 17:45 Ordered CULTURE WOUND [RM] Stat Lab 11/21/16 18:15 Received Sodium Chloride 0.9% [Saline Flush] Med 11/21/16 17:29 Active 10 ml FLUSH ASDIRECTED PRN Peripheral IV Insertion Adult [OM.PC] Stat Oth 11/21/16 17:30 Ordered Medication Orders Enoxaparin Sodium (Lovenox) 40 mg SUBCUT DAILY [facility] Piperacillin Sod/Tazobactam (Sod 4.5 gm/ Sodium Chloride) 100 mls @ 25 mls/hr IV Q8H [facility] Sodium Chloride (Saline Flush) 10 ml FLUSH ASDIRECTED PRN PRN Reason: Keep Vein Open Last Admin: 11/21/16 18:31 Dose: 10 ml Tamsulosin HCl (Flomax) 0.4 mg PO BIDPC [facility] Labs: Laboratory Tests 11/21/16 11/21/16 Range/Units 17:37 17:55 WBC 18.19 H (4.23-9.07) K/mm3 RBC 4.43 L (4.63-6.08) M/mm3 Hgb 12.8 L (13.7-17.5) gm/L Hct 39.6 L (40.1-51.0) % MCV 89.4 (79.0-92.2) fl MCH 28.9 (25.7-32.2) pg MCHC 32.3 (32.2-35.5) g/dl RDW Std Deviation 45.3 H (35.1-43.9) fL Plt Count 428 H (163-337) K/mm3 MPV 9.1 L (9.4-12.3) fl Neut % (Auto) 87.2 H (34.0-67.9) % Lymph % (Auto) 4.6 L (21.8-53.1) % [place] % (Auto) 7.8 (5.3-12.2) % Eos % (Auto) 0.1 L (0.8-7.0) Baso % (Auto) 0.1 (0.1-1.2) % Neut # (Auto) 15.87 H (1.78-5.38) K/mm3 Lymph # (Auto) 0.83 L (1.32-3.57) K/mm3 [place] # (Auto) 1.42 H (0.30-0.82) K/mm3 Eos # (Auto) 0.02 L (0.04-0.54) K/mm3 Baso # (Auto) 0.01 (0.01-0.08) K/mm3 Manual Slide Review Abnormal smear Lactic Acid 1.3 (0.4-2.0) mmol/L Meds: Medications Generic Name Dose Route Start Last Admin Trade Name Freq PRN Reason Stop Dose Admin Enoxaparin Sodium 40 mg 11/22/16 09:00 Lovenox SUBCUT DAILY [facility] Piperacillin Sod/Tazobactam 100 mls @ 25 mls/hr 11/22/16 02:00 Sod 4.5 gm/ Sodium Chloride IV Q8H [facility] Sodium Chloride 10 ml 11/21/16 17:29 11/21/16 18:31 Saline Flush FLUSH 10 ml ASDIRECTED PRN Administration Keep Vein Open Tamsulosin HCl 0.4 mg 11/22/16 09:00 Flomax PO BIDPC [facility] Discontinued Medications Generic Name Dose Route Start Last Admin Trade Name Freq PRN Reason Stop Dose Admin Acetaminophen 975 mg 11/21/16 17:30 11/21/16 17:42 Tylenol PO 11/21/16 17:31 975 mg NOW ONE Administration Piperacillin Sod/Tazobactam 100 mls @ 200 mls/hr 11/21/16 17:31 11/21/16 17: 40 Sod 4.5 gm/ Sodium Chloride IV 11/21/16 18:00 200 mls/hr ONETIME ONE Administration Lidocaine HCl Confirm 11/21/16 18:10 11/21/16 18:30 Xylocaine 1% Administered 11/21/16 18:11 50 ml Dose Administration 50 ml .ROUTE .STK-MED ONE Lidocaine HCl 20 ml 11/21/16 18:27 11/21/16 18:30 Xylocaine 1% INJECT 11/21/16 18:28 Not Given ONETIME ONE - Re-Assessments/Exams Free Text/Narrative Re-Assessment/Exam: 11/21/16 19:25. The area over possible fluid collection was cleaned carefully with Betadine swabs, psychiatrist with 1% lidocaine and then with needle drainage obtained about 45 cc of light brown sero-sanguinous colored fluid, not cloudy or visibly purulent. Departure - Departure Time of Disposition: 18:30 Disposition: Admitted As Inpatient 67 Condition: fair Clinical Impression: Cellulitis Qualifiers: Site of cellulitis: extremity Site of cellulitis of extremity: lower extremity Laterality: right Qualified Code(s): L03.115 - Cellulitis of right lower limb Fever Qualifiers: Fever type: unspecified Qualified Code(s): R50.9 - Fever, unspecified - Discharge Information ED Communication - Discussed Case With (1) Discussed Case With (1): Admitting Provider (Dr Morfin, decision to admit at about 18:30.) - My Orders Last 24 Hours: My Active Orders 11/21/16 17:29 Sodium Chloride 0.9% [Saline Flush] 10 ml FLUSH ASDIRECTED PRN 11/21/16 17:30 Peripheral IV Care [RC] . DIRECTED Peripheral IV Insertion Adult [OM.PC] Stat 11/21/16 17:39 CULTURE BLOOD [BC] Stat 11/21/16 17:45 CULTURE BLOOD [BC] Stat 11/21/16 18:15 CULTURE WOUND [RM] Stat - Assessment/Plan Last 24 Hours: My Active Orders 11/21/16 17:29 Sodium Chloride 0.9% [Saline Flush] 10 ml FLUSH ASDIRECTED PRN 11/21/16 17:30 Peripheral IV Care [RC] . DIRECTED Peripheral IV Insertion Adult [OM.PC] Stat 11/21/16 17:39 CULTURE BLOOD [BC] Stat 11/21/16 17:45 CULTURE BLOOD [BC] Stat 11/21/16 18:15 CULTURE WOUND [RM] Stat
[2016-11-21] MEDS ORDERED: Lidocaine 1% 20 ML MDV INJECT ONE (18:27)
[2016-11-21] MEDS: Lidocaine 1% 50 ML MDV ONE ×3 (18:29→22:11)
[2016-11-21] MEDS ORDERED: HYDROmorphone 1 MG/ML Syringe IVPUSH PRN (19:20)
[2016-11-21] MEDS ORDERED: Ondansetron 4 MG/2 ML SDV IVPUSH PRN (19:21)
--- NOTE | 2016-11-21 19:28 | PCM.HP ---
H&P History of Present Illness - General Date of Service: 11/21/16 Admit Problem/Dx: Admission Diagnosis/Problem Admission Diagnosis/Problem Cellulitis Source of Information: Patient, Provider History Limitations: Reports: No Limitations - History of Present Illness Initial Comments - Free Text/Narative: 61 year old post op male, cellulitis RLE without joint involvement. Had been given a Rx for Clindamycin and Doxycycline; had increase swelling and an temp 102.7F. The patient had been seen in the ED at [facility], provided the prescriptions but unfortunately began to fell worse. It is unclear if any more than one dose may have been taken, the original out patient plan of care was discussed with Dr Hargrove by the ED staff. The patient had his right knee arthroplasty about three weeks [employer]. Fluid was extracted and sent for culture, this was not reported as purulent. 45 cc was removed. Onset of Symptoms: Reports: Gradual Duration of Symptoms: Reports: Hour(s):, Getting Worse Location: Reports: Lower Extremity, Right Quality: Reports: Same as Previous Episode Improves with: Reports: Medication Worsens with: 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 Associated Symptoms: Reports: Fever/Chills Right Knee Pain Score (Numeric/FACES): 2 - Related Data Allergies/Adverse Reactions: Allergies Allergy/AdvReac Type Severity Reaction Status Date / Time erythromycin base Allergy Hives Verified 11/21/16 17:23 sulfamethoxazole Allergy Hives Verified 11/21/16 17:23 [From Bactrim] trimethoprim [From Bactrim] Allergy Hives Verified 11/21/16 17:23 Home Medications: Home Meds Nebivolol HCl [Bystolic] 10 mg PO DAILY 02/25/16 [History] Lisinopril 10 mg PO DAILY 09/16/16 [History] Tadalafil [Cialis] 10 mg PO ASDIRECTED PRN 09/16/16 [History] amLODIPine [Norvasc] 10 mg PO DAILY 09/16/16 [History] Aspirin [Ecotrin] 325 mg PO BID #84 tab.ec 11/03/16 [Rx] Cyclobenzaprine [Flexeril] 10 mg PO TID PRN #40 tablet 11/03/16 [Rx] Acetaminophen [Tylenol] 1,000 mg PO BID 11/21/16 [History] Tamsulosin [Flomax] 0.4 mg PO BIDAC PRN 11/21/16 [History] Past Medical History HEENT History: Reports: Otitis Media, Other (See Below) Other HEENT History: bacterial conjunctivitis, otitis media, wears glasses Cardiovascular History: Reports: Hypertension Respiratory History: Reports: Sleep Apnea, Other (See Below) Other Respiratory History: snoring Gastrointestinal History: 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, GERD Genitourinary History: 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, Other (See Below) Other Genitourinary History: urethral stricture [employer] History: 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 Musculoskeletal History: Reports: Arthritis, Osteoporosis, Other (See Below) Other Musculoskeletal History: bilateral degenerative arthritis of bilateral knees, R knee mass Neurological History: Reports: Migraines Psychiatric History: 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 Endocrine/Metabolic History: Reports: Obesity/BMI 30+ Hematologic History: 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 Immunologic History: 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 Oncologic (Cancer) History: 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 Dermatologic History: 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 - Past Surgical History Head Surgeries/Procedures: 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 Cardiovascular Surgical History: 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 GI Surgical History: 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 Endocrine Surgical History: 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 Neurological Surgical History: 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 Musculoskeletal Surgical History: Reports: Arthroscopic Knee, Knee Replacement, Other (See Below) Other Musculoskeletal Surgeries/Procedures:: right knee replacement, begnin cyst removed from medial aspect of right knee. Oncologic Surgical History: 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 Dermatological Surgical History: 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 - Past Imaging History Past Imaging History: 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 Social & Family History - Family History Family Medical History: Noncontributory - Tobacco Use Smoking Status *Q: Never Smoker Second Hand Smoke Exposure: No - Caffeine Use Caffeine Use: Reports: Soda - Alcohol Use Days Per Week of Alcohol Use: 1 Number of Drinks Per Day: 3 Total Drinks Per Week: 3 - Recreational Drug Use Recreational Drug Use: No H&P Review of Systems - Review of Systems: Review Of Systems: See Below General: Reports: Fever, Chills, Malaise, Weakness HEENT: Reports: No Symptoms Pulmonary: Reports: No Symptoms Cardiovascular: Reports: No Symptoms Gastrointestinal: Reports: No Symptoms Genitourinary: Reports: No Symptoms Musculoskeletal: Reports: No Symptoms Skin: Reports: Erythema Psychiatric: Reports: No Symptoms Neurological: Reports: No Symptoms Hematologic/Lymphatic: Reports: No Symptoms Immunologic: Reports: No Symptoms Exam - Exam Exam: See Below - Vital Signs Vital Signs: Last Vital Signs Temp 39.4 C H 11/21/16 18:38 Pulse 100 05/13/17 17:23 Resp 20 11/21/16 17:23 BP 144/63 H 11/21/16 17:23 Pulse Ox 95 11/21/16 17:23 Weight: 156.943 kg - Exam Quality Assessment: DVT Prophylaxis General: Alert, Oriented, Cooperative, Mild Distress HEENT: Conjunctiva Clear, Nares Patent, Normal Nasal Septum, Pupils Equal, Pupils Reactive Neck: Supple, Trachea Midline Lungs: Normal Respiratory Effort Cardiovascular: Regular Rate, Tachycardia Abdomen: Normal Bowel Sounds, Soft (Male) Exam: Deferred Rectal (Males) Exam: Deferred Back Exam: Normal Inspection Extremities: Normal Pulses, Edema, Increased Warmth, Other (erythema) Skin: Warm Neurological: Cranial Nerves Intact, Normal Speech Neuro Extensive - Mental Status: Alert, Oriented x3, Normal Mood/Affect, Normal Cognition Neuro Extensive - Motor, Sensory, Reflexes: CN II-XII Intact Psychiatric: Alert, Normal Affect, Normal Mood - Patient Data Result Diagrams: 11/22/16 04:25 11/22/16 04:05 *Q Meaningful Use (ADM) - VTE *Q VTE Criteria *Q: - Stroke *Q Stroke Criteria *Q: - AMI *Q AMI Criteria *Q: Problem List Initiated/Reviewed/Updated: Yes Orders Last 24hrs: Active Orders 24 hr Category Date Time Status Activity as Tolerated [RC] .Routine Care 11/21/16 19:09 Active Antiembolic Devices [RC] PER UNIT ROUTINE Care 11/21/16 19:22 Ordered Elevate Extremity [RC] BID Care 11/21/16 19:24 Ordered Vital Signs [RC] PER UNIT ROUTINE Care 11/21/16 19:09 Active Consult to Care Management [Consult to Case Management] Cons 11/21/16 19:21 Ordered [CONS] Routine Consult to Occupational Therapy [OT Evaluation and Cons 11/23/16 09:00 Ordered Treatment] [CONS] Routine Consult to Physical Therapy [PT Evaluation and Cons 11/22/16 09:00 Ordered Treatment] [CONS] Routine BMP [BASIC METABOLIC PANEL,BMP] [CHEM] DAILY Lab 11/22/16 05:00 Ordered BMP [BASIC METABOLIC PANEL,BMP] [CHEM] DAILY Lab 11/23/16 05:00 Ordered BMP [BASIC METABOLIC PANEL,BMP] [CHEM] DAILY Lab 11/24/16 05:00 Ordered BMP [BASIC METABOLIC PANEL,BMP] [CHEM] DAILY Lab 11/25/16 05:00 Ordered CBC WITH AUTO DIFF [HEME] DAILY Lab 11/22/16 05:00 Ordered CBC WITH AUTO DIFF [HEME] DAILY Lab 11/23/16 05:00 Ordered CBC WITH AUTO DIFF [HEME] DAILY Lab 11/24/16 05:00 Ordered CBC WITH AUTO DIFF [HEME] DAILY Lab 11/25/16 05:00 Ordered CRP [C-REACTIVE PROTEIN] [CHEM] DAILY Lab 11/22/16 05:00 Ordered CRP [C-REACTIVE PROTEIN] [CHEM] DAILY Lab 11/23/16 05:00 Ordered CRP [C-REACTIVE PROTEIN] [CHEM] DAILY Lab 11/24/16 05:00 Ordered CRP [C-REACTIVE PROTEIN] [CHEM] DAILY Lab 11/25/16 05:00 Ordered MAGNESIUM [CHEM] DAILY Lab 11/22/16 05:00 Ordered MAGNESIUM [CHEM] DAILY Lab 11/23/16 05:00 Ordered MAGNESIUM [CHEM] DAILY Lab 11/24/16 05:00 Ordered MAGNESIUM [CHEM] DAILY Lab 11/25/16 05:00 Ordered Acetaminophen/HYDROcodone [[place] 325-5 MG] Med 11/21/16 19:20 Ordered 1 tab PO Q6H PRN Enoxaparin [Lovenox] Med 11/22/16 09:00 Ordered 40 mg SUBCUT DAILY HYDROmorphone [Dilaudid] Med 11/21/16 19:20 Ordered 1 mg IVPUSH Q4H PRN Ondansetron [Zofran] Med 11/21/16 19:21 Ordered 4 mg IVPUSH Q8H PRN Piperacillin/Tazobactam [Zosyn] 4.5 gm Med 11/22/16 02:00 Ordered Sodium Chloride 0.9% [Normal Saline] 100 ml IV Q8H Tamsulosin [Flomax] Med 11/22/16 09:00 Active 0.4 mg PO BIDPC Vancomycin Pharmacy to Dose [Pharmacy to Dose - Med 11/21/16 19:30 Ordered Vancomycin] 1 dose .XX ASDIRECTED [facility] Hose [Antiembolic Hose] [OM.PC] Routine Oth 11/21/16 19:22 Ordered Code Status [Resuscitation Status] Routine Resus Stat 11/21/16 19:09 Ordered Medication Orders Enoxaparin Sodium (Lovenox) 40 mg SUBCUT DAILY [facility] Piperacillin Sod/Tazobactam (Sod 4.5 gm/ Sodium Chloride) 100 mls @ 25 mls/hr IV Q8H [facility] Sodium Chloride (Saline Flush) 10 ml FLUSH ASDIRECTED PRN PRN Reason: Keep Vein Open Last Admin: 11/21/16 18:31 Dose: 10 ml Tamsulosin HCl (Flomax) 0.4 mg PO BIDPC [facility] Vancomycin HCl (Pharmacy To Dose - Vancomycin) 1 dose .XX ASDIRECTED [facility] Assessment/Plan Comment:: Impression: RLE cellulitis, failed out patient therapy Leukocytosis S/P right knee arthroplasty Chronic Morbid Obesity HTN MORENA GERD Plan: IVF Elevate RLE Zosyn/Vancomycin Pain meds Consult SW/PT/OT DVT/GI prophylaxis
[2016-11-21] MEDS: amLODIPine 10 MG Tab PO SCH (22:10)
[2016-11-21] MEDS: Vancomycin 2 GM in Sodium Chloride 0.9% 500 ML IV SCH (22:12)
[2016-11-22] MEDS: Piperacillin/Tazobactam 4.5 GM in Sodium Chloride 0.9% 100 ML IV SCH ×3 (03:27→17:54)
[2016-11-22] MEDS: Vancomycin 2 GM in Sodium Chloride 0.9% 500 ML IV SCH ×2 (09:26→22:06)
[2016-11-22] MEDS: Enoxaparin 40 MG/0.4 ML Syringe SUBCUT SCH (09:26)
[2016-11-22] MEDS: Tamsulosin 0.4 MG Cap.ER PO SCH ×3 (09:27→17:59)
[2016-11-22] MEDS: amLODIPine 10 MG Tab PO SCH (09:27)
[2016-11-22] MEDS ORDERED: Tamsulosin 0.4 MG Cap.ER PO PRN ×2 (12:43→18:37)
[2016-11-22] MEDS ORDERED: Magnesium Sulfate/Water 2 GM in Premix Bag 1 BAG IV ONE (20:33)
--- NOTE | 2016-11-22 20:46 | PCM.PN ---
- General Info Date of Service: 11/22/16 Functional Status: Reports: tolerating diet, ambulating, urinating - Review of Systems General: Reports: No Symptoms HEENT: Reports: no symptoms Pulmonary: Reports: no symptoms Cardiovascular: Reports: No Symptoms Gastrointestinal: Reports: No symptoms Genitourinary: Reports: no symptoms Musculoskeletal: Reports: leg pain (decrease pain) Skin: Reports: no symptoms Neurological: Reports: No Symptoms Psychiatric: Reports: no symptoms - Patient Data Vitals - most recent: Last Vital Signs Temp 37.3 C 11/22/16 20:02 Pulse 87 11/22/16 20:02 Resp 17 11/22/16 20:02 BP 153/75 H 11/22/16 20:02 Pulse Ox 92 L 11/22/16 20:02 Weight - most recent: 156.943 kg I&O - last 24 hours: Intake & Output 11/22/16 11/22/16 11/22/16 06:59 14:59 22:59 Intake Total 5121 833 1066 Output Total 550 750 Balance 045 804 2691 Lab Results last 24 hrs: Laboratory Results - last 24 hr 11/22/16 11/22/16 Range/Units 04:05 04:25 WBC 21.09 H (4.23-9.07) K/mm3 RBC 4.19 L (4.63-6.08) M/mm3 Hgb 11.9 L (13.7-17.5) gm/L Hct 37.6 L (40.1-51.0) % MCV 89.7 (79.0-92.2) fl MCH 28.4 (25.7-32.2) pg MCHC 31.6 L (32.2-35.5) g/dl RDW Std Deviation 45.7 H (35.1-43.9) fL Plt Count 373 H (163-337) K/mm3 MPV 9.8 (9.4-12.3) fl Neut % (Auto) 81.5 H (34.0-67.9) % Lymph % (Auto) 7.7 L (21.8-53.1) % [place] % (Auto) 10.1 (5.3-12.2) % Eos % (Auto) 0.2 L (0.8-7.0) Baso % (Auto) 0.2 (0.1-1.2) % Neut # (Auto) 17.19 H (1.78-5.38) K/mm3 Lymph # (Auto) 1.62 (1.32-3.57) K/mm3 [place] # (Auto) 2.12 H (0.30-0.82) K/mm3 Eos # (Auto) 0.05 (0.04-0.54) K/mm3 Baso # (Auto) 0.04 (0.01-0.08) K/mm3 Manual Slide Review Abnormal smear Sodium 140 (136-145) mEq/L Potassium 3.6 (3.5-5.1) mEq/L Chloride 106 (98-107) mEq/L Carbon Dioxide 26 (21-32) mEq/L Anion Gap 11.6 (5-15) BUN 10 (7-18) mg/dL Creatinine 0.8 (0.7-1.3) mg/dL Est Cr Clr Drug Dosing 104.58 mL/min Estimated GFR (MDRD) > 60 (>60) mL/min BUN/Creatinine Ratio 12.5 L (14-18) Glucose 113 H (74-106) mg/dL Calcium 8.2 L (8.5-10.1) mg/dL Magnesium 1.8 (1.8-2.4) mg/dl C-Reactive Protein 18.6 H* (<1.0) mg/dL Med Orders - Current: Current Medications Hydrocodone Bitart/Acetaminophen ([place] 325-5 Mg) 1 tab PO Q6H PRN PRN Reason: Pain Amlodipine Besylate (Norvasc) 10 mg PO DAILY [facility] Last Admin: 11/22/16 09:27 Dose: 10 mg Enoxaparin Sodium (Lovenox) 40 mg SUBCUT DAILY [facility] Last Admin: 11/22/16 09:26 Dose: 40 mg Hydromorphone HCl (Dilaudid) 1 mg IVPUSH Q4H PRN PRN Reason: Pain Vancomycin HCl 2 gm/ Sodium (Chloride) 500 mls @ 333 mls/hr IV Q12H [facility] Last Admin: 11/22/16 09:26 Dose: 333 mls/hr Levofloxacin/Dextrose 750 mg/ (Premix) 150 mls @ 100 mls/hr IV Q24H [facility] Magnesium Sulfate 2 gm/ Premix 50 mls @ 25 mls/hr IV ONETIME ONE Stop: 11/22/16 22:32 Ondansetron HCl (Zofran) 4 mg IVPUSH Q8H PRN PRN Reason: Nausea/Vomiting Sodium Chloride (Saline Flush) 10 ml FLUSH ASDIRECTED PRN PRN Reason: Keep Vein Open Last Admin: 11/21/16 18:31 Dose: 10 ml Tamsulosin HCl (Flomax) 0.4 mg PO BIDAC PRN PRN Reason: urinary retention Vancomycin HCl (Pharmacy To Dose - Vancomycin) 0 dose .XX ASDIRECTED PRN PRN Reason: rx dose Discontinued Medications Acetaminophen (Tylenol) 975 mg PO NOW ONE Stop: 11/21/16 17:31 Last Admin: 11/21/16 17:42 Dose: 975 mg Piperacillin Sod/Tazobactam (Sod 4.5 gm/ Sodium Chloride) 100 mls @ 200 mls/hr IV ONETIME ONE Stop: 11/21/16 18:00 Last Admin: 11/21/16 17:40 Dose: 200 mls/hr Piperacillin Sod/Tazobactam (Sod 4.5 gm/ Sodium Chloride) 100 mls @ 25 mls/hr IV Q8H [facility] Last Admin: 11/22/16 17:54 Dose: 25 mls/hr Lidocaine HCl (Xylocaine 1%) Confirm Administered Dose 50 ml .ROUTE .STK-MED ONE Stop: 11/21/16 18:11 Last Admin: 11/21/16 22:11 Dose: Not Given Lidocaine HCl (Xylocaine 1%) 20 ml INJECT ONETIME ONE Stop: 11/21/16 18:28 Last Admin: 11/21/16 18:30 Dose: Not Given Tamsulosin HCl (Flomax) 0.4 mg PO BIDPC [facility] Last Admin: 11/22/16 17:59 Dose: Not Given Tamsulosin HCl (Flomax) 0.4 mg PO BIDAC PRN PRN Reason: Other - Exam Quality Assessment: DVT prophylaxis General: alert, oriented, cooperative, no acute distress HEENT: Pupils equal, Pupils reactive, EOMI Neck: supple, trachea midline, no JVD Lungs: Normal respiratory effort Cardiovascular: Regular Rate, Regular Rhythm Abdomen: bowel sounds present, no tenderness, no distension (Male) Exam: Deferred Back Exam: Normal Inspection Extremities: normal pulses Skin: warm Wound/Incisions: drainage (no), erythema Neurological: no new focal deficit, normal gait, normal speech Psy/Mental Status: alert, normal affect, normal mood - Problem List Review Problem List Initiated/Reviewed/Updated: Yes - My Orders Last 24 Hours: My Active Orders 11/21/16 21:00 Vancomycin 2 gm Sodium Chloride 0.9% [Normal Saline] 500 ml IV Q12H 11/22/16 09:00 Consult to Physical Therapy [PT Evaluation and Treatment] [CONS] Routine Enoxaparin [Lovenox] 40 mg SUBCUT DAILY 11/22/16 18:37 Tamsulosin [Flomax] 0.4 mg PO BIDAC PRN 11/22/16 20:00 Levofloxacin/Dextrose 5%-Water [Levaquin in D5W 750 MG/150 ML] 750 mg Premix Bag 1 bag IV Q24H 11/22/16 20:33 Magnesium Sulfate/Water [Magnesium Sulfate 2 GM in Water 50 ML] 2 gm Premix Bag 1 bag IV ONETIME 11/23/16 05:00 BMP [BASIC METABOLIC PANEL,BMP] [CHEM] DAILY CBC WITH AUTO DIFF [HEME] DAILY CRP [C-REACTIVE PROTEIN] [CHEM] DAILY MAGNESIUM [CHEM] DAILY 11/23/16 09:00 Consult to Occupational Therapy [OT Evaluation and Treatment] [CONS] Routine 11/24/16 05:00 BMP [BASIC METABOLIC PANEL,BMP] [CHEM] DAILY CBC WITH AUTO DIFF [HEME] DAILY CRP [C-REACTIVE PROTEIN] [CHEM] DAILY MAGNESIUM [CHEM] DAILY 11/25/16 05:00 BMP [BASIC METABOLIC PANEL,BMP] [CHEM] DAILY CBC WITH AUTO DIFF [HEME] DAILY CRP [C-REACTIVE PROTEIN] [CHEM] DAILY MAGNESIUM [CHEM] DAILY - Plan Plan:: Impression: RLE cellulitis, failed out patient therapy Leukocytosis S/P right knee arthroplasty Chronic Morbid Obesity HTN MORENA GERD Plan: IVF Elevate RLE Zosyn-stopped/Vancomycin; start Levoquin Pain meds Consult SW/PT/OT DVT/GI prophylaxis
[2016-11-22] MEDS: Levofloxacin/Dextrose 5%-Water 750 MG in Premix Bag 1 BAG IV SCH (22:06)
[2016-11-23] MEDS: amLODIPine 10 MG Tab PO SCH (09:48)
[2016-11-23] MEDS: Carvedilol 6.25 MG Tab PO SCH ×2 (09:48→20:54)
[2016-11-23] MEDS: Lisinopril 10 MG Tab PO SCH (09:48)
[2016-11-23] MEDS: Saccharomyces Boulardii (Probiotic) 250 MG Cap PO SCH ×2 (09:49→20:54)
[2016-11-23] MEDS: Enoxaparin 40 MG/0.4 ML Syringe SUBCUT SCH (09:49)
[2016-11-23] MEDS: Vancomycin 1 GM, Vancomycin 250 MG in Sodium Chloride 0.9% 250 ML IV SCH ×2 (11:12→17:40)
[2016-11-23] MEDS: Vancomycin 2 GM in Sodium Chloride 0.9% 500 ML IV SCH (11:27)
--- NOTE | 2016-11-23 13:36 | PCM.PN ---
<Hannah Gallagher M - Last Filed: 11/23/16 13:28> - General Info Date of Service: 11/23/16 Admission Dx/Problem (Free Text): Admission Diagnosis/Problem Admission Diagnosis/Problem Sofiya Vegas is seen this morning, resting comfortably in bed. Rt leg is elevated on pillows. States "no pain" to rt leg/knee. Site of cellulitis/infection is medial right upper leg just below knee, site of prior "cyst removal". States "blew up on Wednesday" after he had been at hospital with his mother and brother all day on Wednesday. Denies f/c/s overnight, no nausea. Good appetite. No diarrhea. On Vanco and levaquin IV. Brother with recent MRSA infection requiring 41 days in hospital per patient report to me this morning. Functional Status: Reports: pain controlled, tolerating diet, ambulating (doing well with ambulation), urinating. Denies: new symptoms - Review of Systems General: Denies: Fever, Chills HEENT: Reports: no symptoms Pulmonary: Reports: no symptoms. Denies: shortness of breath, cough Cardiovascular: Reports: No Symptoms. Denies: Chest Pain, Palpitations, Dyspnea on Exertion, Edema Gastrointestinal: Reports: No symptoms. Denies: Abdominal pain, Diarrhea, Nausea, Vomiting Genitourinary: Reports: no symptoms Musculoskeletal: Reports: leg pain (minimal as above in HPI) Skin: Reports: other (erythema and swelling to medial proximal lower leg just below knee joint.) Neurological: Reports: No Symptoms Psychiatric: Reports: no symptoms - Patient Data Vitals - most recent: Last Vital Signs Temp 98.2 F 11/23/16 08:13 Pulse 87 11/23/16 09:48 Resp 20 11/23/16 08:13 BP 150/75 H 11/23/16 09:48 Pulse Ox 91 L 11/23/16 08:13 Weight - most recent: 150.956 kg I&O - last 24 hours: Intake & Output 11/22/16 11/23/16 11/23/16 22:59 06:59 14:59 Intake Total 1820 1315 Output Total 750 700 Balance 1070 615 Lab Results last 24 hrs: Laboratory Results - last 24 hr 11/23/16 11/23/16 11/23/16 Range/Units 06:07 06:07 09:00 WBC 14.75 H (4.23-9.07) K/mm3 RBC 4.30 L (4.63-6.08) M/mm3 Hgb 12.4 L (13.7-17.5) gm/L Hct 38.3 L (40.1-51.0) % MCV 89.1 (79.0-92.2) fl MCH 28.8 (25.7-32.2) pg MCHC 32.4 (32.2-35.5) g/dl RDW Std Deviation 45.4 H (35.1-43.9) fL Plt Count 348 H (163-337) K/mm3 MPV 9.5 (9.4-12.3) fl Neut % (Auto) 80.7 H (34.0-67.9) % Lymph % (Auto) 9.6 L (21.8-53.1) % [place] % (Auto) 8.8 (5.3-12.2) % Eos % (Auto) 0.7 L (0.8-7.0) Baso % (Auto) 0.1 (0.1-1.2) % Neut # (Auto) 11.89 H (1.78-5.38) K/mm3 Lymph # (Auto) 1.41 (1.32-3.57) K/mm3 [place] # (Auto) 1.30 H (0.30-0.82) K/mm3 Eos # (Auto) 0.11 (0.04-0.54) K/mm3 Baso # (Auto) 0.02 (0.01-0.08) K/mm3 Manual Slide Review Abnormal smear Sodium 140 (136-145) mEq/L Potassium 3.6 (3.5-5.1) mEq/L Chloride 105 (98-107) mEq/L Carbon Dioxide 25 (21-32) mEq/L Anion Gap 13.6 (5-15) BUN 7 (7-18) mg/dL Creatinine 0.7 0.8 (0.7-1.3) mg/dL Est Cr Clr Drug Dosing 119.52 104.58 mL/min Estimated GFR (MDRD) > 60 > 60 (>60) mL/min BUN/Creatinine Ratio 10.0 L (14-18) Glucose 105 (74-106) mg/dL Calcium 8.2 L (8.5-10.1) mg/dL Magnesium 2.2 (1.8-2.4) mg/dl C-Reactive Protein 20.1 H* (<1.0) mg/dL Vancomycin Trough 6.7 L (10.0-20.0) Med Orders - Current: Current Medications Hydrocodone Bitart/Acetaminophen ([place] 325-5 Mg) 1 tab PO Q6H PRN PRN Reason: Pain Amlodipine Besylate (Norvasc) 10 mg PO DAILY [facility] Last Admin: 11/23/16 09:48 Dose: 10 mg Carvedilol (Coreg) 6.25 mg PO BID [facility] Last Admin: 11/23/16 09:48 Dose: 6.25 mg Enoxaparin Sodium (Lovenox) 40 mg SUBCUT DAILY [facility] Last Admin: 11/23/16 09:49 Dose: 40 mg Hydromorphone HCl (Dilaudid) 1 mg IVPUSH Q4H PRN PRN Reason: Pain Levofloxacin/Dextrose 750 mg/ (Premix) 150 mls @ 100 mls/hr IV Q24H [facility] Last Admin: 11/22/16 22:06 Dose: 100 mls/hr Vancomycin HCl 1 gm/Vancomycin HCl 250 mg/ Sodium Chloride 250 mls @ 167 mls/ hr IV Q8H [facility] Last Admin: 11/23/16 11:12 Dose: 167 mls/hr Lisinopril (Prinivil) 10 mg PO DAILY [facility] Last Admin: 11/23/16 09:48 Dose: 10 mg Ondansetron HCl (Zofran) 4 mg IVPUSH Q8H PRN PRN Reason: Nausea/Vomiting Saccharomyces Boulardii (Florastor) 250 mg PO BID [facility] Last Admin: 11/23/16 09:49 Dose: 250 mg Sodium Chloride (Saline Flush) 10 ml FLUSH ASDIRECTED PRN PRN Reason: Keep Vein Open Last Admin: 11/21/16 18:31 Dose: 10 ml Tamsulosin HCl (Flomax) 0.4 mg PO BIDAC PRN PRN Reason: urinary retention Vancomycin HCl (Pharmacy To Dose - Vancomycin) 0 dose .XX ASDIRECTED PRN PRN Reason: rx dose Discontinued Medications Acetaminophen (Tylenol) 975 mg PO NOW ONE Stop: 11/21/16 17:31 Last Admin: 11/21/16 17:42 Dose: 975 mg Piperacillin Sod/Tazobactam (Sod 4.5 gm/ Sodium Chloride) 100 mls @ 200 mls/hr IV ONETIME ONE Stop: 11/21/16 18:00 Last Admin: 11/21/16 17:40 Dose: 200 mls/hr Piperacillin Sod/Tazobactam (Sod 4.5 gm/ Sodium Chloride) 100 mls @ 25 mls/hr IV Q8H [facility] Last Admin: 11/22/16 17:54 Dose: 25 mls/hr Vancomycin HCl 2 gm/ Sodium (Chloride) 500 mls @ 333 mls/hr IV Q12H [facility] Last Admin: 11/23/16 11:27 Dose: Not Given Magnesium Sulfate 2 gm/ Premix 50 mls @ 25 mls/hr IV ONETIME ONE Stop: 11/22/16 22:32 Last Admin: 11/22/16 22:13 Dose: 25 mls/hr Lidocaine HCl (Xylocaine 1%) Confirm Administered Dose 50 ml .ROUTE .STK-MED ONE Stop: 11/21/16 18:11 Last Admin: 11/21/16 22:11 Dose: Not Given Lidocaine HCl (Xylocaine 1%) 20 ml INJECT ONETIME ONE Stop: 11/21/16 18:28 Last Admin: 11/21/16 18:30 Dose: Not Given Tamsulosin HCl (Flomax) 0.4 mg PO BIDPC [facility] Last Admin: 11/22/16 17:59 Dose: Not Given Tamsulosin HCl (Flomax) 0.4 mg PO BIDAC PRN PRN Reason: Other - Exam Quality Assessment: DVT prophylaxis General: alert, oriented, cooperative, no acute distress (pleasant and talkative ) HEENT: Pupils equal, Pupils reactive, EOMI, Mucous membr. moist/pink Neck: supple Lungs: Clear to auscultation, Normal respiratory effort Cardiovascular: Regular Rate, Regular Rhythm Abdomen: bowel sounds present, soft, no tenderness (Male) Exam: Deferred Extremities: normal pulses, no calf tenderness, other (right leg; medial proximal lower leg just below knee is with prior surgical incision (cyst removal ) that is erythematous and warm to touch, no fluctuance. Prior line of demarkation of redness is significantly improved- >50% improvement in erythema, no streaking noted. Tender to touch. ) Peripheral Pulses: 2+: Dorsalis Pedis (L), Dorsalis Pedis (R) Skin: warm, dry, intact, other (cellulitis site to rt medial leg as noted above under extremities. Incision/scar from TKA is nicely healed, no erythema or swelling, no drainage over this surgical site.) Neurological: no new focal deficit Psy/Mental Status: alert, normal affect, normal mood - Problem List & Annotations (1) Cellulitis SNOMED Code(s): 921419847 Code(s): L03.90 - CELLULITIS, UNSPECIFIED Status: Acute Priority: High Current Visit: Yes Qualifiers: Site of cellulitis: extremity Site of cellulitis of extremity: lower extremity Laterality: right Qualified Code(s): L03.115 - Cellulitis of right lower limb Annotation/Comment:: Not involving knee joint at this time (2) Fever SNOMED Code(s): 954153787 Code(s): R50.9 - FEVER, UNSPECIFIED Status: Resolved Priority: High Current Visit: Yes Qualifiers: Fever type: unspecified Qualified Code(s): R50.9 - Fever, unspecified (3) HTN (hypertension) SNOMED Code(s): 54617670 Code(s): I10 - ESSENTIAL (PRIMARY) HYPERTENSION Status: Chronic Priority : Medium Current Visit: No Qualifiers: Hypertension type: essential hypertension Qualified Code(s): I10 - Essential (primary) hypertension (4) MORENA (obstructive sleep apnea) SNOMED Code(s): 47871585 Code(s): G47.33 - OBSTRUCTIVE SLEEP APNEA (ADULT) (PEDIATRIC) Status: Chronic Priority: Medium Current Visit: No (5) Obesity SNOMED Code(s): 293635812 Code(s): E66.9 - OBESITY, UNSPECIFIED Status: Chronic Priority: Medium Current Visit: No Qualifiers: Obesity severity: unspecified obesity severity - Problem List Review Problem List Initiated/Reviewed/Updated: Yes - My Orders Last 24 Hours: My Active Orders 11/23/16 09:00 Carvedilol [Coreg] 6.25 mg PO BID Lisinopril [Prinivil] 10 mg PO DAILY 11/23/16 09:09 SCD [Sequential Compression Device] [OM.PC] Routine 11/23/16 09:15 Saccharomyces Boulardii [Florastor] 250 mg PO BID 11/23/16 13:26 PICC Line Insertion [CR] Routine - Plan Plan:: Impression: RLE cellulitis- failed out patient therapy---does not appear to involve knee joint (recent TKA site) at this time. -6 wks prior to TKA patient had cyst removed from this site by Dr. Hargrove in prep for TKA. -Has MRSA exposure with brother having active infection currently -Cultures thus far growing gram positive cocci -IV levaquin and Vancomycin, Florastor -Elevate extremity -PT/OT -Likely will need OP IV abx to protect from infection spreading to TKA--- PICC line to be placed in preparation for discharge for this. Leukocytosis- etiology above, tx as above S/P right knee arthroplasty- [address] Hargrove -Dr. Hargrove was notified and case discussed with him when patient was initially in ED with recommendations for oral abx. -Dr. Hargrove is out of office this week; I have been in touch with his PA and reviewed above noted case with her to update on patient status. Chronic: Morbid Obesity HTN- cont home meds MORENA- cont with CPAP GERD- cont home meds Other: DVT/GI prophylaxis Consult SW/CM for assist with DC planning: may likely need OP IV abx x 4-6 weeks pending C&S. Patient is full code status. <Asya Morfin M - Last Filed: 11/23/16 19:10> - Patient Data Vitals - most recent: Last Vital Signs Temp 37.3 C 11/23/16 16:12 Pulse 83 11/23/16 16:12 Resp 18 11/23/16 16:12 BP 133/67 11/23/16 16:12 Pulse Ox 93 L 11/23/16 16:12 I&O - last 24 hours: Intake & Output 11/23/16 11/23/16 11/23/16 06:59 14:59 22:59 Intake Total 4691 397 8435 Output Total 700 750 Balance 615 300 900 Lab Results last 24 hrs: Laboratory Results - last 24 hr 11/23/16 11/23/16 11/23/16 Range/Units 06:07 06:07 09:00 WBC 14.75 H (4.23-9.07) K/mm3 RBC 4.30 L (4.63-6.08) M/mm3 Hgb 12.4 L (13.7-17.5) gm/L Hct 38.3 L (40.1-51.0) % MCV 89.1 (79.0-92.2) fl MCH 28.8 (25.7-32.2) pg MCHC 32.4 (32.2-35.5) g/dl RDW Std Deviation 45.4 H (35.1-43.9) fL Plt Count 348 H (163-337) K/mm3 MPV 9.5 (9.4-12.3) fl Neut % (Auto) 80.7 H (34.0-67.9) % Lymph % (Auto) 9.6 L (21.8-53.1) % [place] % (Auto) 8.8 (5.3-12.2) % Eos % (Auto) 0.7 L (0.8-7.0) Baso % (Auto) 0.1 (0.1-1.2) % Neut # (Auto) 11.89 H (1.78-5.38) K/mm3 Lymph # (Auto) 1.41 (1.32-3.57) K/mm3 [place] # (Auto) 1.30 H (0.30-0.82) K/mm3 Eos # (Auto) 0.11 (0.04-0.54) K/mm3 Baso # (Auto) 0.02 (0.01-0.08) K/mm3 Manual Slide Review Abnormal smear Sodium 140 (136-145) mEq/L Potassium 3.6 (3.5-5.1) mEq/L Chloride 105 (98-107) mEq/L Carbon Dioxide 25 (21-32) mEq/L Anion Gap 13.6 (5-15) BUN 7 (7-18) mg/dL Creatinine 0.7 0.8 (0.7-1.3) mg/dL Est Cr Clr Drug Dosing 119.52 104.58 mL/min Estimated GFR (MDRD) > 60 > 60 (>60) mL/min BUN/Creatinine Ratio 10.0 L (14-18) Glucose 105 (74-106) mg/dL Calcium 8.2 L (8.5-10.1) mg/dL Magnesium 2.2 (1.8-2.4) mg/dl C-Reactive Protein 20.1 H* (<1.0) mg/dL Vancomycin Trough 6.7 L (10.0-20.0) Med Orders - Current: Current Medications Hydrocodone Bitart/Acetaminophen ([place] 325-5 Mg) 1 tab PO Q6H PRN PRN Reason: Pain Amlodipine Besylate (Norvasc) 10 mg PO DAILY [facility] Last Admin: 11/23/16 09:48 Dose: 10 mg Carvedilol (Coreg) 6.25 mg PO BID [facility] Last Admin: 11/23/16 09:48 Dose: 6.25 mg Enoxaparin Sodium (Lovenox) 40 mg SUBCUT DAILY [facility] Last Admin: 11/23/16 09:49 Dose: 40 mg Hydromorphone HCl (Dilaudid) 1 mg IVPUSH Q4H PRN PRN Reason: Pain Levofloxacin/Dextrose 750 mg/ (Premix) 150 mls @ 100 mls/hr IV Q24H [facility] Last Admin: 11/22/16 22:06 Dose: 100 mls/hr Vancomycin HCl 1 gm/Vancomycin HCl 250 mg/ Sodium Chloride 250 mls @ 167 mls/ hr IV Q8H [facility] Last Admin: 11/23/16 17:40 Dose: 167 mls/hr Lisinopril (Prinivil) 10 mg PO DAILY [facility] Last Admin: 11/23/16 09:48 Dose: 10 mg Ondansetron HCl (Zofran) 4 mg IVPUSH Q8H PRN PRN Reason: Nausea/Vomiting Saccharomyces Boulardii (Florastor) 250 mg PO BID [facility] Last Admin: 11/23/16 09:49 Dose: 250 mg Sodium Chloride (Saline Flush) 10 ml FLUSH ASDIRECTED PRN PRN Reason: Keep Vein Open Last Admin: 11/21/16 18:31 Dose: 10 ml Tamsulosin HCl (Flomax) 0.4 mg PO BIDAC PRN PRN Reason: urinary retention Vancomycin HCl (Pharmacy To Dose - Vancomycin) 0 dose .XX ASDIRECTED PRN PRN Reason: rx dose Discontinued Medications Acetaminophen (Tylenol) 975 mg PO NOW ONE Stop: 11/21/16 17:31 Last Admin: 11/21/16 17:42 Dose: 975 mg Piperacillin Sod/Tazobactam (Sod 4.5 gm/ Sodium Chloride) 100 mls @ 200 mls/hr IV ONETIME ONE Stop: 11/21/16 18:00 Last Admin: 11/21/16 17:40 Dose: 200 mls/hr Piperacillin Sod/Tazobactam (Sod 4.5 gm/ Sodium Chloride) 100 mls @ 25 mls/hr IV Q8H [facility] Last Admin: 11/22/16 17:54 Dose: 25 mls/hr Vancomycin HCl 2 gm/ Sodium (Chloride) 500 mls @ 333 mls/hr IV Q12H [facility] Last Admin: 11/23/16 11:27 Dose: Not Given Magnesium Sulfate 2 gm/ Premix 50 mls @ 25 mls/hr IV ONETIME ONE Stop: 11/22/16 22:32 Last Admin: 11/22/16 22:13 Dose: 25 mls/hr Lidocaine HCl (Xylocaine 1%) Confirm Administered Dose 50 ml .ROUTE .STK-MED ONE Stop: 11/21/16 18:11 Last Admin: 11/21/16 22:11 Dose: Not Given Lidocaine HCl (Xylocaine 1%) 20 ml INJECT ONETIME ONE Stop: 11/21/16 18:28 Last Admin: 11/21/16 18:30 Dose: Not Given Tamsulosin HCl (Flomax) 0.4 mg PO BIDPC [facility] Last Admin: 11/22/16 17:59 Dose: Not Given Tamsulosin HCl (Flomax) 0.4 mg PO BIDAC PRN PRN Reason: Other - My Orders Last 24 Hours: My Active Orders 11/22/16 18:37 Tamsulosin [Flomax] 0.4 mg PO BIDAC PRN 11/22/16 20:00 Levofloxacin/Dextrose 5%-Water [Levaquin in D5W 750 MG/150 ML] 750 mg Premix Bag 1 bag IV Q24H 11/23/16 09:00 Consult to Occupational Therapy [OT Evaluation and Treatment] [CONS] Routine 11/23/16 10:30 Vancomycin 1 gm Vancomycin 250 mg Sodium Chloride 0.9% [Normal Saline] 250 ml IV Q8H 11/24/16 05:00 BMP [BASIC METABOLIC PANEL,BMP] [CHEM] DAILY CBC WITH AUTO DIFF [HEME] DAILY CRP [C-REACTIVE PROTEIN] [CHEM] DAILY MAGNESIUM [CHEM] DAILY 11/24/16 10:00 VANCOMYCIN TROUGH [CHEM] Timed 11/25/16 05:00 BMP [BASIC METABOLIC PANEL,BMP] [CHEM] DAILY CBC WITH AUTO DIFF [HEME] DAILY CRP [C-REACTIVE PROTEIN] [CHEM] DAILY MAGNESIUM [CHEM] DAILY - Plan Plan:: PICC placement today for IV ATB at DC completed by [employer], DC expected soon.
--- NOTE | 2016-11-23 15:56 | CR ---
Chest: Frontal view of the chest was obtained (3:13 PM). Comparison: Previous study performed earlier on the same day. PICC line has been removed. Tip now lies within the superior vena cava. Heart size and mediastinum are stable. Bony structures are stable. Lungs remain clear. Impression: 1. Tip of PICC line within the superior vena cava in satisfactory position. Diagnostic code #1
--- NOTE | 2016-11-23 15:56 | CR ---
Chest: Frontal view of the chest was obtained (3:09 PM). Comparison: Previous chest x-ray 09/04/16. Heart size and mediastinum are within normal limits. Lungs are clear. Right-sided PICC line is seen. Tip lies near the right atrial and superior vena cava junction. Degenerative endplate spurring is noted within the spine. Impression: 1. Tip of PICC line near the right atrial and superior vena cava junction. 2. Other incidental findings. Diagnostic code #3
--- NOTE | 2016-11-23 17:53 | PCM.SN ---
- Free Text/Narrative Note: Date: 11/23/16 Start: 1430 Stop: 1540 Time Out: 1450 Procedure: PICC Line placement for jail antibiotic therapy. Diagnosis: Cellulitis of right leg. Anesthesia requested for PICC line placement. Patient educated on risk/benefits , allergies reviewed, medication list reviewed, patient agrees to proceed, consent obtained. Patient positioned in supine position. Right arm prepped with 3 chloroprep's, 20 gauge angiocatheter placed without difficulty to right antecubital area, sterile drapes placed, and sterile gown, gloves used, along with cap and mask. ( Sterile Technique Noted) MicroIntroducer kit used: [employer] [facility] PICC 4 [place] catheter single lumen advanced without difficulties noted. REF: [id number] LOT: [id number] EXP: 2017-11-08 Catheter advanced and secured at 57 cm at the skin. Easy blood aspiration noted and catheter flushed with 40 ml's of Normal Saline. Mastisol/Steri-Strips placed, along with Tegaderm with chlorahexidine square noted. Stat-Lock holding device used and dressing dated. Portable Chest Xray taken and report confirms satisfactory position. Education card given to patient, and patient tolerated procedure well. Thank-you! Juhi Blas CRNA
[2016-11-23] MEDS: Levofloxacin/Dextrose 5%-Water 750 MG in Premix Bag 1 BAG IV SCH (20:51)
[2016-11-24] MEDS: Vancomycin 1 GM, Vancomycin 250 MG in Sodium Chloride 0.9% 250 ML IV SCH ×2 (02:32→10:16)
[2016-11-24] MEDS: amLODIPine 10 MG Tab PO SCH (08:42)
[2016-11-24] MEDS: Saccharomyces Boulardii (Probiotic) 250 MG Cap PO SCH ×2 (08:42→20:29)
[2016-11-24] MEDS: Enoxaparin 40 MG/0.4 ML Syringe SUBCUT SCH (08:43)
[2016-11-24] MEDS: Carvedilol 6.25 MG Tab PO SCH ×2 (08:43→20:30)
[2016-11-24] MEDS: Lisinopril 10 MG Tab PO SCH (08:43)
[2016-11-24] MEDS ORDERED: Vancomycin 1 GM, Vancomycin 500 MG in Sodium Chloride 0.9% 500 ML IV SCH (10:57)
--- NOTE | 2016-11-24 15:29 | PCM.PN ---
- General Info Date of Service: 11/24/16 Admission Dx/Problem (Free Text): Admission Diagnosis/Problem Admission Diagnosis/Problem Cellulitis Ascencion is seen today, resting comfortably in bed. Rt leg is elevated on pillows. States "no pain" to rt leg/knee. Ambulating and doing well with PT. Denies f/c/s overnight, no nausea. Good appetite. No diarrhea. On Vanco and levaquin IV. PICC line placed yesterday for IV abx use and plans for dc home on IV abx pending C&S. Functional Status: Reports: pain controlled, tolerating diet, ambulating, urinating. Denies: new symptoms - Review of Systems General: Reports: No Symptoms. Denies: Fever, Chills HEENT: Reports: no symptoms Pulmonary: Reports: no symptoms Cardiovascular: Reports: No Symptoms Gastrointestinal: Reports: No symptoms Genitourinary: Reports: no symptoms Musculoskeletal: Reports: leg pain (minimal; erythema improving to right leg) Skin: Reports: other (right leg erythema improving; no fluctuance to medial proximal right lower leg; does NOT appear to involve joint space at this time.) Neurological: Reports: No Symptoms - Patient Data Vitals - most recent: Last Vital Signs Temp 98.8 F 11/24/16 15:20 Pulse 88 11/24/16 15:20 Resp 15 11/24/16 15:20 BP 126/71 11/24/16 15:20 Pulse Ox 93 L 11/24/16 15:20 Weight - most recent: 329 lb 9.6 oz I&O - last 24 hours: Intake & Output 11/24/16 11/24/16 11/24/16 06:59 14:59 22:59 Intake Total 1105 120 Output Total 575 Balance 530 120 Lab Results last 24 hrs: Laboratory Results - last 24 hr 11/24/16 11/24/16 11/24/16 Range/Units 05:40 05:40 10:00 WBC 11.81 H (4.23-9.07) K/mm3 RBC 4.40 L (4.63-6.08) M/mm3 Hgb 12.4 L (13.7-17.5) gm/L Hct 39.1 L (40.1-51.0) % MCV 88.9 (79.0-92.2) fl MCH 28.2 (25.7-32.2) pg MCHC 31.7 L (32.2-35.5) g/dl RDW Std Deviation 45.1 H (35.1-43.9) fL Plt Count 360 H (163-337) K/mm3 MPV 9.5 (9.4-12.3) fl Neut % (Auto) 77.4 H (34.0-67.9) % Lymph % (Auto) 11.0 L (21.8-53.1) % [place] % (Auto) 9.1 (5.3-12.2) % Eos % (Auto) 2.1 (0.8-7.0) Baso % (Auto) 0.2 (0.1-1.2) % Neut # (Auto) 9.14 H (1.78-5.38) K/mm3 Lymph # (Auto) 1.30 L (1.32-3.57) K/mm3 [place] # (Auto) 1.08 H (0.30-0.82) K/mm3 Eos # (Auto) 0.25 (0.04-0.54) K/mm3 Baso # (Auto) 0.02 (0.01-0.08) K/mm3 Sodium 140 (136-145) mEq/L Potassium 4.0 (3.5-5.1) mEq/L Chloride 105 (98-107) mEq/L Carbon Dioxide 28 (21-32) mEq/L Anion Gap 11.0 (5-15) BUN 7 (7-18) mg/dL Creatinine 0.8 (0.7-1.3) mg/dL Est Cr Clr Drug Dosing 104.58 mL/min Estimated GFR (MDRD) > 60 (>60) mL/min BUN/Creatinine Ratio 8.8 L (14-18) Glucose 100 (74-106) mg/dL Calcium 8.6 (8.5-10.1) mg/dL Magnesium 2.1 (1.8-2.4) mg/dl C-Reactive Protein 14.2 H* (<1.0) mg/dL Vancomycin Trough 8.9 L (10.0-20.0) Med Orders - Current: Current Medications Hydrocodone Bitart/Acetaminophen ([place] 325-5 Mg) 1 tab PO Q6H PRN PRN Reason: Pain Amlodipine Besylate (Norvasc) 10 mg PO DAILY [facility] Last Admin: 11/24/16 08:42 Dose: 10 mg Carvedilol (Coreg) 6.25 mg PO BID [facility] Last Admin: 11/24/16 08:43 Dose: 6.25 mg Enoxaparin Sodium (Lovenox) 40 mg SUBCUT DAILY [facility] Last Admin: 11/24/16 08:43 Dose: 40 mg Hydromorphone HCl (Dilaudid) 1 mg IVPUSH Q4H PRN PRN Reason: Pain Levofloxacin/Dextrose 750 mg/ (Premix) 150 mls @ 100 mls/hr IV Q24H [facility] Last Admin: 11/23/16 20:51 Dose: 100 mls/hr Vancomycin HCl 1 gm/Vancomycin HCl 500 mg/ Sodium Chloride 500 mls @ 250 mls/ hr IV Q8H [facility] Lisinopril (Prinivil) 10 mg PO DAILY [facility] Last Admin: 11/24/16 08:43 Dose: 10 mg Ondansetron HCl (Zofran) 4 mg IVPUSH Q8H PRN PRN Reason: Nausea/Vomiting Saccharomyces Boulardii (Florastor) 250 mg PO BID [facility] Last Admin: 11/24/16 08:42 Dose: 250 mg Sodium Chloride (Saline Flush) 10 ml FLUSH ASDIRECTED PRN PRN Reason: Keep Vein Open Last Admin: 11/21/16 18:31 Dose: 10 ml Tamsulosin HCl (Flomax) 0.4 mg PO BIDAC PRN PRN Reason: urinary retention Vancomycin HCl (Pharmacy To Dose - Vancomycin) 0 dose .XX ASDIRECTED PRN PRN Reason: rx dose Discontinued Medications Acetaminophen (Tylenol) 975 mg PO NOW ONE Stop: 11/21/16 17:31 Last Admin: 11/21/16 17:42 Dose: 975 mg Piperacillin Sod/Tazobactam (Sod 4.5 gm/ Sodium Chloride) 100 mls @ 200 mls/hr IV ONETIME ONE Stop: 11/21/16 18:00 Last Admin: 11/21/16 17:40 Dose: 200 mls/hr Piperacillin Sod/Tazobactam (Sod 4.5 gm/ Sodium Chloride) 100 mls @ 25 mls/hr IV Q8H [facility] Last Admin: 11/22/16 17:54 Dose: 25 mls/hr Vancomycin HCl 2 gm/ Sodium (Chloride) 500 mls @ 333 mls/hr IV Q12H [facility] Last Admin: 11/23/16 11:27 Dose: Not Given Magnesium Sulfate 2 gm/ Premix 50 mls @ 25 mls/hr IV ONETIME ONE Stop: 11/22/16 22:32 Last Admin: 11/22/16 22:13 Dose: 25 mls/hr Vancomycin HCl 1 gm/Vancomycin HCl 250 mg/ Sodium Chloride 250 mls @ 167 mls/ hr IV Q8H [facility] Last Admin: 11/24/16 10:16 Dose: 167 mls/hr Vancomycin HCl 1 gm/Vancomycin HCl 500 mg/ Sodium Chloride 500 mls @ 334.014 mls/hr IV Q8H [facility] Last Admin: 11/24/16 11:32 Dose: Not Given Lidocaine HCl (Xylocaine 1%) Confirm Administered Dose 50 ml .ROUTE .STK-MED ONE Stop: 11/21/16 18:11 Last Admin: 11/21/16 22:11 Dose: Not Given Lidocaine HCl (Xylocaine 1%) 20 ml INJECT ONETIME ONE Stop: 11/21/16 18:28 Last Admin: 11/21/16 18:30 Dose: Not Given Tamsulosin HCl (Flomax) 0.4 mg PO BIDPC [facility] Last Admin: 11/22/16 17:59 Dose: Not Given Tamsulosin HCl (Flomax) 0.4 mg PO BIDAC PRN PRN Reason: Other - Exam Quality Assessment: DVT prophylaxis General: alert, oriented, cooperative, no acute distress HEENT: Pupils equal, Pupils reactive, EOMI, Mucous membr. moist/pink Neck: supple Lungs: Clear to auscultation, Normal respiratory effort Cardiovascular: Regular Rate, Regular Rhythm, Murmurs Abdomen: bowel sounds present, soft, no distension Extremities: no edema, other (rt medial proximal lower leg with improved erythema; no fluctuance; does NOT appear to involve joint at this time. Incision line from TKA is WNL- no erythema noted and healing nicely) Peripheral Pulses: 1+: Dorsalis Pedis (L), Dorsalis Pedis (R) Skin: warm, dry Psy/Mental Status: alert, normal affect, normal mood - Problem List & Annotations (1) Cellulitis SNOMED Code(s): 212908434 Code(s): L03.90 - CELLULITIS, UNSPECIFIED Status: Acute Priority: High Current Visit: Yes Qualifiers: Site of cellulitis: extremity Site of cellulitis of extremity: lower extremity Laterality: right Qualified Code(s): L03.115 - Cellulitis of right lower limb Annotation/Comment:: Not involving knee joint at this time (2) Fever SNOMED Code(s): 130539556 Code(s): R50.9 - FEVER, UNSPECIFIED Status: Resolved Priority: High Current Visit: Yes Qualifiers: Fever type: unspecified Qualified Code(s): R50.9 - Fever, unspecified (3) HTN (hypertension) SNOMED Code(s): 60828178 Code(s): I10 - ESSENTIAL (PRIMARY) HYPERTENSION Status: Chronic Priority : Medium Current Visit: No Qualifiers: Hypertension type: essential hypertension Qualified Code(s): I10 - Essential (primary) hypertension (4) MORENA (obstructive sleep apnea) SNOMED Code(s): 82815329 Code(s): G47.33 - OBSTRUCTIVE SLEEP APNEA (ADULT) (PEDIATRIC) Status: Chronic Priority: Medium Current Visit: No (5) Obesity SNOMED Code(s): 281341282 Code(s): E66.9 - OBESITY, UNSPECIFIED Status: Chronic Priority: Medium Current Visit: No Qualifiers: Obesity severity: unspecified obesity severity - Problem List Review Problem List Initiated/Reviewed/Updated: Yes - Plan Plan:: Impression: RLE cellulitis- failed out patient therapy---does not appear to involve knee joint (recent TKA site) at this time. -6 wks prior to TKA patient had cyst removed from this site by Dr. Hargrove in prep for TKA. 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 Leukocytosis- etiology above, tx as above--improving S/P right knee arthroplasty- [address] Hargrove -Dr. Hargrove was notified and case discussed with him when patient was initially in ED with recommendations for oral abx. -Dr. Hargrove is out of office this week; I have been in touch with his PA and reviewed above noted case with her to update on patient status. Chronic: Morbid Obesity HTN- cont home meds MORENA- cont with CPAP GERD- cont home meds Other: DVT/GI prophylaxis Consult SW/CM for assist with DC planning: may likely need OP IV abx x 4-6 weeks pending C&S. Patient is full code status.
[2016-11-24] MEDS: Vancomycin 1 GM, Vancomycin 500 MG in Sodium Chloride 0.9% 500 ML IV SCH (17:12)
--- NOTE | 2016-11-24 17:13 | PCM.SN ---
- Free Text/Narrative Note: Seen patient at beside. Affected area where cysts was removed appeared red, edematous and firm. Per ED notes, 45 cc of light brown sero-sanguinous colored fluid, not cloudy or visibly purulent was aspirated. The redness has not reach the joint area. Will order imaging study to make sure infection has not reach the area. Dr. Hargrove will not avail until Wednesday. Will consult GS for further eval. He may need ID at this point.
[2016-11-24] MEDS ORDERED: Lidocaine 1% 4 ML ONE (18:27)
[2016-11-24] MEDS ORDERED: fentaNYL 250 MCG/5 ML SDV ONE (18:27)
[2016-11-24] MEDS ORDERED: Propofol 200 MG/20 ML SDV ONE ×2 (18:27→19:31)
[2016-11-24] MEDS ORDERED: Midazolam 1 MG/ML 2 ML SDV ONE (18:27)
--- NOTE | 2016-11-24 18:29 | PCM.PREANE ---
Preanesthetic Assessment - Anesthesia/Transfusion/Family Hx Anesthesia History: Prior Anesthesia Without Reaction Family History of Anesthesia Reaction: No Transfusion History: No Prior Transfusion(s) - Review of Systems General: No Symptoms Pulmonary: No Symptoms Cardiovascular: No Symptoms Gastrointestinal: No symptoms Neurological: No Symptoms Other: 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 - Physical Assessment NPO Status Date: 11/24/16 NPO Status Time: 12:00 Pulse: 88 O2 Sat by Pulse Oximetry: 93 Respiratory Rate: 15 Blood Pressure: 126/71 Temperature: 37.1 C Vital Signs: Last Vital Signs Temp 37.1 C 11/24/16 15:20 Pulse 88 11/24/16 15:20 Resp 15 11/24/16 15:20 BP 126/71 11/24/16 15:20 Pulse Ox 93 L 11/24/16 15:20 Height: 1.8 m Weight: 149.504 kg ASA Class: 2E Mental Status: Alert & Oriented x3 Airway Class: Mallampati = 2 Dentition: Reports: Normal Dentition, Barrett(s), Bridge Thyro-Mental Finger Breadths: 2 Mouth Opening Finger Breadths: 2 ROM/Head Extension: Full Lungs: Clear to auscultation, Normal respiratory effort Cardiovascular: Regular Rate, Regular Rhythm, No Murmurs - Lab Values: Laboratory Last Values WBC 11.81 K/mm3 (4.23-9.07) H 11/24/16 05:40 RBC 4.40 M/mm3 (4.63-6.08) L 11/24/16 05:40 Hgb 12.4 gm/L (13.7-17.5) L 11/24/16 05:40 Hct 39.1 % (40.1-51.0) L 11/24/16 05:40 MCV 88.9 fl (79.0-92.2) 11/24/16 05:40 MCH 28.2 pg (25.7-32.2) 11/24/16 05:40 MCHC 31.7 g/dl (32.2-35.5) L 11/24/16 05:40 RDW Std Deviation 45.1 fL (35.1-43.9) H 11/24/16 05:40 Plt Count 360 K/mm3 (163-337) H 11/24/16 05:40 MPV 9.5 fl (9.4-12.3) 11/24/16 05:40 Neut % (Auto) 77.4 % (34.0-67.9) H 11/24/16 05:40 Lymph % (Auto) 11.0 % (21.8-53.1) L 11/24/16 05:40 [place] % (Auto) 9.1 % (5.3-12.2) 11/24/16 05:40 Eos % (Auto) 2.1 (0.8-7.0) 11/24/16 05:40 Baso % (Auto) 0.2 % (0.1-1.2) 11/24/16 05:40 Neut # (Auto) 9.14 K/mm3 (1.78-5.38) H 11/24/16 05:40 Lymph # (Auto) 1.30 K/mm3 (1.32-3.57) L 11/24/16 05:40 [place] # (Auto) 1.08 K/mm3 (0.30-0.82) H 11/24/16 05:40 Eos # (Auto) 0.25 K/mm3 (0.04-0.54) 11/24/16 05:40 Baso # (Auto) 0.02 K/mm3 (0.01-0.08) 11/24/16 05:40 Manual Slide Review Abnormal smear 11/23/16 06:07 Sodium 140 mEq/L (136-145) 11/24/16 05:40 Potassium 4.0 mEq/L (3.5-5.1) 11/24/16 05:40 Chloride 105 mEq/L (98-107) 11/24/16 05:40 Carbon Dioxide 28 mEq/L (21-32) 11/24/16 05:40 Anion Gap 11.0 (5-15) 11/24/16 05:40 BUN 7 mg/dL (7-18) 11/24/16 05:40 Creatinine 0.8 mg/dL (0.7-1.3) 11/24/16 05:40 Est Cr Clr Drug Dosing 104.58 mL/min 11/24/16 05:40 Estimated GFR (MDRD) > 60 mL/min (>60) 11/24/16 05:40 BUN/Creatinine Ratio 8.8 (14-18) L 11/24/16 05:40 Glucose 100 mg/dL (74-106) 11/24/16 05:40 Lactic Acid 1.3 mmol/L (0.4-2.0) 11/21/16 17:55 Calcium 8.6 mg/dL (8.5-10.1) 11/24/16 05:40 Magnesium 2.1 mg/dl (1.8-2.4) 11/24/16 05:40 C-Reactive Protein 14.2 mg/dL (<1.0) H* 11/24/16 05:40 Vancomycin Trough 8.9 (10.0-20.0) L 11/24/16 10:00 - Allergies Allergies/Adverse Reactions: Allergies Allergy/AdvReac Type Severity Reaction Status Date / Time erythromycin base Allergy Hives Verified 11/21/16 17:23 sulfamethoxazole Allergy Hives Verified 11/21/16 17:23 [From Bactrim] trimethoprim [From Bactrim] Allergy Hives Verified 11/21/16 17:23 - Blood Blood Available: No Product(s) Available: None - Anesthesia Plan Pre-Op Medication Ordered: None - Acknowledgements Anesthesia Type Planned: MAC Pt an Appropriate Candidate for the Planned Anesthesia: Yes Alternatives and Risks of Anesthesia Discussed w Pt/Guardian: Yes Pt/Guardian Understands and Agrees with Anesthesia Plan: Yes PreAnesthesia Questionnaire HEENT History: Reports: Otitis Media, Other (See Below) Other HEENT History: bacterial conjunctivitis, otitis media, wears glasses Cardiovascular History: Reports: Hypertension Respiratory History: Reports: Sleep Apnea, Other (See Below) Other Respiratory History: snoring Gastrointestinal History: 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, GERD Other Gastrointestinal History: Umbilical hernia Genitourinary History: 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, Other (See Below) Other Genitourinary History: urethral stricture [employer] History: 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 Musculoskeletal History: Reports: Arthritis, Osteoporosis, Other (See Below) Other Musculoskeletal History: bilateral degenerative arthritis of bilateral knees, R knee mass Neurological History: Reports: Migraines Psychiatric History: 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 Endocrine/Metabolic History: Reports: Obesity/BMI 30+ Hematologic History: 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 Immunologic History: 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 Oncologic (Cancer) History: 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 Other Oncologic History: To left lower eye Dermatologic History: 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 Other Dermatologic History: CUrrently admitted for cellulitis too Right lower knee/retibial area - Infectious Disease History Infectious Disease History: Reports: Chicken Pox, Measles, Mumps, Shingles - Past Surgical History Head Surgeries/Procedures: 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 Cardiovascular Surgical History: 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 GI Surgical History: 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 Endocrine Surgical History: 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 Neurological Surgical History: 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 Musculoskeletal Surgical History: Reports: Arthroscopic Knee, Knee Replacement, Other (See Below) Other Musculoskeletal Surgeries/Procedures:: right knee replacement, begnin cyst removed from medial aspect of right knee. Oncologic Surgical History: 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 Dermatological Surgical History: 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 - Past Imaging History Past Imaging History: 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 - SUBSTANCE USE Smoking Status *Q: Never Smoker Tobacco Use Within Last Twelve Months: No Second Hand Smoke Exposure: No Days Per Week of Alcohol Use: 1 Number of Drinks Per Day: 3 Total Drinks Per Week: 3 Recreational Drug Use History: No - HOME MEDS Home Medications: Home Meds Nebivolol HCl [Bystolic] 10 mg PO DAILY 02/25/16 [History] Lisinopril 10 mg PO DAILY 09/16/16 [History] Tadalafil [Cialis] 10 mg PO ASDIRECTED PRN 09/16/16 [History] amLODIPine [Norvasc] 10 mg PO DAILY 09/16/16 [History] Aspirin [Ecotrin] 325 mg PO BID #84 tab.ec 11/03/16 [Rx] Cyclobenzaprine [Flexeril] 10 mg PO TID PRN #40 tablet 11/03/16 [Rx] Acetaminophen [Tylenol] 1,000 mg PO BID 11/21/16 [History] Tamsulosin [Flomax] 0.4 mg PO BIDAC PRN 11/21/16 [History] - CURRENT (IN HOUSE) MEDS Current Meds: Current Medications Hydrocodone Bitart/Acetaminophen ([place] 325-5 Mg) 1 tab PO Q6H PRN PRN Reason: Pain Amlodipine Besylate (Norvasc) 10 mg PO DAILY [facility] Last Admin: 11/24/16 08:42 Dose: 10 mg Carvedilol (Coreg) 6.25 mg PO BID [facility] Last Admin: 11/24/16 08:43 Dose: 6.25 mg Enoxaparin Sodium (Lovenox) 40 mg SUBCUT DAILY [facility] Last Admin: 11/24/16 08:43 Dose: 40 mg Hydromorphone HCl (Dilaudid) 1 mg IVPUSH Q4H PRN PRN Reason: Pain Levofloxacin/Dextrose 750 mg/ (Premix) 150 mls @ 100 mls/hr IV Q24H [facility] Last Admin: 11/23/16 20:51 Dose: 100 mls/hr Vancomycin HCl 1 gm/Vancomycin HCl 500 mg/ Sodium Chloride 500 mls @ 250 mls/ hr IV Q8H [facility] Last Admin: 11/24/16 17:12 Dose: 250 mls/hr Lisinopril (Prinivil) 10 mg PO DAILY [facility] Last Admin: 11/24/16 08:43 Dose: 10 mg Ondansetron HCl (Zofran) 4 mg IVPUSH Q8H PRN PRN Reason: Nausea/Vomiting Saccharomyces Boulardii (Florastor) 250 mg PO BID [facility] Last Admin: 11/24/16 08:42 Dose: 250 mg Sodium Chloride (Saline Flush) 10 ml FLUSH ASDIRECTED PRN PRN Reason: Keep Vein Open Last Admin: 11/21/16 18:31 Dose: 10 ml Tamsulosin HCl (Flomax) 0.4 mg PO BIDAC PRN PRN Reason: urinary retention Vancomycin HCl (Pharmacy To Dose - Vancomycin) 0 dose .XX ASDIRECTED PRN PRN Reason: rx dose Discontinued Medications Acetaminophen (Tylenol) 975 mg PO NOW ONE Stop: 11/21/16 17:31 Last Admin: 11/21/16 17:42 Dose: 975 mg Fentanyl (Sublimaze) Confirm Administered Dose 250 mcg .ROUTE .STK-MED ONE Stop: 11/24/16 18:28 Piperacillin Sod/Tazobactam (Sod 4.5 gm/ Sodium Chloride) 100 mls @ 200 mls/hr IV ONETIME ONE Stop: 11/21/16 18:00 Last Admin: 11/21/16 17:40 Dose: 200 mls/hr Piperacillin Sod/Tazobactam (Sod 4.5 gm/ Sodium Chloride) 100 mls @ 25 mls/hr IV Q8H [facility] Last Admin: 11/22/16 17:54 Dose: 25 mls/hr Vancomycin HCl 2 gm/ Sodium (Chloride) 500 mls @ 333 mls/hr IV Q12H [facility] Last Admin: 11/23/16 11:27 Dose: Not Given Magnesium Sulfate 2 gm/ Premix 50 mls @ 25 mls/hr IV ONETIME ONE Stop: 11/22/16 22:32 Last Admin: 11/22/16 22:13 Dose: 25 mls/hr Vancomycin HCl 1 gm/Vancomycin HCl 250 mg/ Sodium Chloride 250 mls @ 167 mls/ hr IV Q8H [facility] Last Admin: 11/24/16 10:16 Dose: 167 mls/hr Vancomycin HCl 1 gm/Vancomycin HCl 500 mg/ Sodium Chloride 500 mls @ 334.014 mls/hr IV Q8H [facility] Last Admin: 11/24/16 11:32 Dose: Not Given Lidocaine HCl (Xylocaine-Mpf 1%) Confirm Administered Dose 4 mls @ as directed .ROUTE .STK-MED ONE Stop: 11/24/16 18:28 Lidocaine HCl (Xylocaine 1%) Confirm Administered Dose 50 ml .ROUTE .STK-MED ONE Stop: 11/21/16 18:11 Last Admin: 11/21/16 22:11 Dose: Not Given Lidocaine HCl (Xylocaine 1%) 20 ml INJECT ONETIME ONE Stop: 11/21/16 18:28 Last Admin: 11/21/16 18:30 Dose: Not Given Midazolam HCl (Versed 1 Mg/Ml) Confirm Administered Dose 2 mg .ROUTE .STK-MED ONE Stop: 11/24/16 18:28 Propofol (Diprivan 20 Ml) Confirm Administered Dose 200 mg .ROUTE .STK-MED ONE Stop: 11/24/16 18:28 Tamsulosin HCl (Flomax) 0.4 mg PO BIDPC [facility] Last Admin: 11/22/16 17:59 Dose: Not Given Tamsulosin HCl (Flomax) 0.4 mg PO BIDAC PRN PRN Reason: Other
[2016-11-24] MEDS ORDERED: Vancomycin 1 GM SDV ONE (18:45)
[2016-11-24] MEDS ORDERED: Lidocaine 1% with EPINEPHrine 1:100,000 20 ML MDV ONE (18:53)
[2016-11-24] MEDS ORDERED: Lidocaine 1% 50 ML MDV ONE (18:53)
--- NOTE | 2016-11-24 19:41 | PCM.CONSN ---
- General Info Date of Service: 11/24/16 - Patient Data Vitals - most recent: Last Vital Signs Temp 98.8 F 11/24/16 18:29 Pulse 88 11/24/16 18:29 Resp 15 11/24/16 18:29 BP 126/71 11/24/16 18:29 Pulse Ox 93 L 11/24/16 18:29 Weight - most recent: 149.504 kg I&O - last 24 hours: Intake & Output 11/24/16 11/24/16 11/24/16 07:59 15:59 23:59 Intake Total 4151 253 4831 Output Total 575 Balance 247 293 0230 Lab Results last 24 hrs: Laboratory Results - last 24 hr 11/24/16 11/24/16 11/24/16 Range/Units 05:40 05:40 10:00 WBC 11.81 H (4.23-9.07) K/mm3 RBC 4.40 L (4.63-6.08) M/mm3 Hgb 12.4 L (13.7-17.5) gm/L Hct 39.1 L (40.1-51.0) % MCV 88.9 (79.0-92.2) fl MCH 28.2 (25.7-32.2) pg MCHC 31.7 L (32.2-35.5) g/dl RDW Std Deviation 45.1 H (35.1-43.9) fL Plt Count 360 H (163-337) K/mm3 MPV 9.5 (9.4-12.3) fl Neut % (Auto) 77.4 H (34.0-67.9) % Lymph % (Auto) 11.0 L (21.8-53.1) % [place] % (Auto) 9.1 (5.3-12.2) % Eos % (Auto) 2.1 (0.8-7.0) Baso % (Auto) 0.2 (0.1-1.2) % Neut # (Auto) 9.14 H (1.78-5.38) K/mm3 Lymph # (Auto) 1.30 L (1.32-3.57) K/mm3 [place] # (Auto) 1.08 H (0.30-0.82) K/mm3 Eos # (Auto) 0.25 (0.04-0.54) K/mm3 Baso # (Auto) 0.02 (0.01-0.08) K/mm3 Sodium 140 (136-145) mEq/L Potassium 4.0 (3.5-5.1) mEq/L Chloride 105 (98-107) mEq/L Carbon Dioxide 28 (21-32) mEq/L Anion Gap 11.0 (5-15) BUN 7 (7-18) mg/dL Creatinine 0.8 (0.7-1.3) mg/dL Est Cr Clr Drug Dosing 104.58 mL/min Estimated GFR (MDRD) > 60 (>60) mL/min BUN/Creatinine Ratio 8.8 L (14-18) Glucose 100 (74-106) mg/dL Calcium 8.6 (8.5-10.1) mg/dL Magnesium 2.1 (1.8-2.4) mg/dl C-Reactive Protein 14.2 H* (<1.0) mg/dL Vancomycin Trough 8.9 L (10.0-20.0) Med Orders - Current: Current Medications Hydrocodone Bitart/Acetaminophen ([place] 325-5 Mg) 1 tab PO Q6H PRN PRN Reason: Pain Amlodipine Besylate (Norvasc) 10 mg PO DAILY [facility] Last Admin: 11/24/16 08:42 Dose: 10 mg Carvedilol (Coreg) 6.25 mg PO BID [facility] Last Admin: 11/24/16 08:43 Dose: 6.25 mg Enoxaparin Sodium (Lovenox) 40 mg SUBCUT DAILY [facility] Last Admin: 11/24/16 08:43 Dose: 40 mg Hydromorphone HCl (Dilaudid) 1 mg IVPUSH Q4H PRN PRN Reason: Pain Levofloxacin/Dextrose 750 mg/ (Premix) 150 mls @ 100 mls/hr IV Q24H [facility] Last Admin: 11/23/16 20:51 Dose: 100 mls/hr Vancomycin HCl 1 gm/Vancomycin HCl 500 mg/ Sodium Chloride 500 mls @ 250 mls/ hr IV Q8H [facility] Last Admin: 11/24/16 17:12 Dose: 250 mls/hr Lisinopril (Prinivil) 10 mg PO DAILY [facility] Last Admin: 11/24/16 08:43 Dose: 10 mg Ondansetron HCl (Zofran) 4 mg IVPUSH Q8H PRN PRN Reason: Nausea/Vomiting Saccharomyces Boulardii (Florastor) 250 mg PO BID [facility] Last Admin: 11/24/16 08:42 Dose: 250 mg Sodium Chloride (Saline Flush) 10 ml FLUSH ASDIRECTED PRN PRN Reason: Keep Vein Open Last Admin: 11/21/16 18:31 Dose: 10 ml Tamsulosin HCl (Flomax) 0.4 mg PO BIDAC PRN PRN Reason: urinary retention Vancomycin HCl (Pharmacy To Dose - Vancomycin) 0 dose .XX ASDIRECTED PRN PRN Reason: rx dose Discontinued Medications Acetaminophen (Tylenol) 975 mg PO NOW ONE Stop: 11/21/16 17:31 Last Admin: 11/21/16 17:42 Dose: 975 mg Fentanyl (Sublimaze) Confirm Administered Dose 250 mcg .ROUTE .STK-MED ONE Stop: 11/24/16 18:28 Piperacillin Sod/Tazobactam (Sod 4.5 gm/ Sodium Chloride) 100 mls @ 200 mls/hr IV ONETIME ONE Stop: 11/21/16 18:00 Last Admin: 11/21/16 17:40 Dose: 200 mls/hr Piperacillin Sod/Tazobactam (Sod 4.5 gm/ Sodium Chloride) 100 mls @ 25 mls/hr IV Q8H [facility] Last Admin: 11/22/16 17:54 Dose: 25 mls/hr Vancomycin HCl 2 gm/ Sodium (Chloride) 500 mls @ 333 mls/hr IV Q12H [facility] Last Admin: 11/23/16 11:27 Dose: Not Given Magnesium Sulfate 2 gm/ Premix 50 mls @ 25 mls/hr IV ONETIME ONE Stop: 11/22/16 22:32 Last Admin: 11/22/16 22:13 Dose: 25 mls/hr Vancomycin HCl 1 gm/Vancomycin HCl 250 mg/ Sodium Chloride 250 mls @ 167 mls/ hr IV Q8H [facility] Last Admin: 11/24/16 10:16 Dose: 167 mls/hr Vancomycin HCl 1 gm/Vancomycin HCl 500 mg/ Sodium Chloride 500 mls @ 334.014 mls/hr IV Q8H [facility] Last Admin: 11/24/16 11:32 Dose: Not Given Lidocaine HCl (Xylocaine-Mpf 1%) Confirm Administered Dose 4 mls @ as directed .ROUTE .STK-MED ONE Stop: 11/24/16 18:28 Lidocaine HCl (Xylocaine 1%) Confirm Administered Dose 50 ml .ROUTE .STK-MED ONE Stop: 11/21/16 18:11 Last Admin: 11/21/16 22:11 Dose: Not Given Lidocaine HCl (Xylocaine 1%) 20 ml INJECT ONETIME ONE Stop: 11/21/16 18:28 Last Admin: 11/21/16 18:30 Dose: Not Given Lidocaine HCl (Xylocaine 1%) Confirm Administered Dose 50 ml .ROUTE .STK-MED ONE Stop: 11/24/16 18:54 Lidocaine/Epinephrine (Xylocaine 1% With Epinephrine 1:100,000) Confirm Administered Dose 20 ml .ROUTE .STK-MED ONE Stop: 11/24/16 18:54 Midazolam HCl (Versed 1 Mg/Ml) Confirm Administered Dose 2 mg .ROUTE .STK-MED ONE Stop: 11/24/16 18:28 Propofol (Diprivan 20 Ml) Confirm Administered Dose 200 mg .ROUTE .STK-MED ONE Stop: 11/24/16 18:28 Propofol (Diprivan 20 Ml) Confirm Administered Dose 200 mg .ROUTE .STK-MED ONE Stop: 11/24/16 19:32 Tamsulosin HCl (Flomax) 0.4 mg PO BID[facility] Last Admin: 11/22/16 17:59 Dose: Not Given Tamsulosin HCl (Flomax) 0.4 mg PO BIDAC PRN PRN Reason: Other Vancomycin HCl (Vancomycin) Confirm Administered Dose 2 gm .ROUTE .STK-MED ONE Stop: 11/24/16 18:46 Consult PN Assessment/Plan Procedures: Procedures ASSAY OF FERRITIN (10/09/16) ASSAY OF PREALBUMIN (10/09/16) ASSAY OF PROTEIN OTHER (02/28/16) ASSAY OF SERUM ALBUMIN (10/09/16) BLOOD CULTURE FOR BACTERIA (11/21/16) BODY FLUID CELL COUNT (02/28/16) C-REACTIVE PROTEIN (11/21/16) CHEST X-RAY 2VW FRONTAL&LATL (09/04/16) COMPLETE CBC W/AUTO DIFF WBC (11/21/16) COMPREHEN METABOLIC PANEL (11/21/16) CULTR BACTERIA EXCEPT BLOOD (09/17/16) CULTURE OTHR SPECIMN AEROBIC (02/25/16) DRAIN/INJ JOINT/BURSA W/O US (02/25/16) EMERGENCY DEPT VISIT (11/21/16) EMERGENCY DEPT VISIT (02/25/16) EXAM SYNOVIAL FLUID CRYSTALS (02/28/16) EXC THIGH/KNEE LES SC 3 CM/> (09/17/16) EXTREMITY STUDY (02/25/16) FUNGUS ISOLATION CULTURE (02/28/16) GLUCOSE OTHER FLUID (02/28/16) LIPID PANEL (11/16/14) METABOLIC PANEL TOTAL CA (10/09/16) MR-STAPH DNA AMP PROBE (09/17/16) MRI JNT OF LWR EXTRE W/O DYE (08/18/16) POLYSOM 6/>YRS CPAP 4/> PARM (11/25/15) PROTHROMBIN TIME (10/09/16) RBC SED RATE AUTOMATED (02/25/16) ROUTINE VENIPUNCTURE (11/21/16) SMEAR GRAM STAIN (09/17/16) THROMBOPLASTIN TIME PARTIAL (10/09/16) TISSUE EXAM BY PATHOLOGIST (09/17/16) VITAMIN D 25 HYDROXY (10/09/16) X-RAY EXAM OF KNEE 1 OR 2 (12/02/15) X-RAY EXAM OF KNEE 3 (02/25/16) Problem List Initiated/Reviewed/Updated: Yes My Orders last 24 hours: My Active Orders 11/24/16 18:44 Schedule Procedure [COMM] Routine 11/24/16 18:56 CULTURE ANAEROBIC + SMEAR [RM] Stat after discussing the care with Dr. Hargrove the abscess will be drained and then closed over a PRANEETH drain with instillation of Vacomycin powder.
--- NOTE | 2016-11-24 19:45 | PCM.OPNOTE ---
- General Post-Op/Procedure Note Date of Surgery/Procedure: 11/24/16 Operative Procedure(s): drainage of abscess sub qu tissue of the rt knee with instalation of vacomycin powder and closure over a PRANEETH drain Findings: abscess sub q tissue of the rt knee Pre Op Diagnosis: abscess of sub q tissue of the rt knee Post-Op Diagnosis: Same Anesthesia Technique: MAC Primary Surgeon: Robe Conway EBL in mLs: 50 Complications: None Condition: Good Free Text/Narrative:: Intake & Output 11/24/16 11/24/16 11/24/16 07:59 15:59 23:59 Intake Total 1322 340 7493 Output Total 575 Balance 285 169 3663
[2016-11-24] MEDS: Acetaminophen/HYDROcodone 325-5 MG Tab PO PRN (20:29)
[2016-11-24] MEDS: Levofloxacin/Dextrose 5%-Water 750 MG in Premix Bag 1 BAG IV SCH (20:29)
[2016-11-25] MEDS: Vancomycin 1 GM, Vancomycin 500 MG in Sodium Chloride 0.9% 500 ML IV SCH (02:59)
[2016-11-25] MEDS: Acetaminophen/HYDROcodone 325-5 MG Tab PO PRN ×2 (03:05→08:35)
[2016-11-25] MEDS ORDERED: Furosemide 20 MG/2 ML VIAL IVPUSH ONE ×2 (06:30→08:00)
[2016-11-25] MEDS: Carvedilol 6.25 MG Tab PO SCH ×2 (08:34→20:18)
[2016-11-25] MEDS: Lisinopril 10 MG Tab PO SCH (08:34)
[2016-11-25] MEDS: Enoxaparin 40 MG/0.4 ML Syringe SUBCUT SCH (08:35)
[2016-11-25] MEDS: amLODIPine 10 MG Tab PO SCH (08:35)
[2016-11-25] MEDS: Saccharomyces Boulardii (Probiotic) 250 MG Cap PO SCH ×2 (08:35→20:21)
--- NOTE | 2016-11-25 09:13 | PCM.PN ---
- General Info Date of Service: 11/25/16 Admission Dx/Problem (Free Text): Admission Diagnosis/Problem Admission Diagnosis/Problem Cellulitis Ascencion is seen today, resting comfortably in bed. Doing well; denies f/c/s, n/v/ d. Tolerating diet/food. Patient underwent I&D to right medial lower leg yesterday per Dr. Conway, drain present. Pain is minimal and well controlled now. He is ambulatory, doing well with PT/OT. Functional Status: Reports: pain controlled, tolerating diet, ambulating, urinating. Denies: new symptoms - Review of Systems General: Denies: Fever, Chills, Night Sweats HEENT: Reports: no symptoms Pulmonary: Reports: no symptoms Cardiovascular: Reports: No Symptoms Gastrointestinal: Reports: No symptoms. Denies: Diarrhea, Nausea, Vomiting Genitourinary: Reports: no symptoms Musculoskeletal: Reports: leg pain (minimal) Skin: Reports: other (erythema improved s/p I&D last evening) Neurological: Reports: No Symptoms Psychiatric: Reports: no symptoms - Patient Data Vitals - most recent: Last Vital Signs Temp 98.4 F 11/25/16 08:08 Pulse 87 11/25/16 08:34 Resp 15 11/25/16 08:08 BP 157/86 H 11/25/16 08:35 Pulse Ox 95 11/25/16 08:08 Weight - most recent: 330 lb 12.8 oz I&O - last 24 hours: Intake & Output 11/24/16 11/25/16 11/25/16 22:59 06:59 14:59 Intake Total 2590 1230 Output Total 200 Balance 2590 1030 Lab Results last 24 hrs: Laboratory Results - last 24 hr 11/24/16 11/25/16 11/25/16 Range/Units 10:00 06:33 06:33 WBC 8.26 (4.23-9.07) K/mm3 RBC 4.20 L (4.63-6.08) M/mm3 Hgb 12.2 L (13.7-17.5) gm/L Hct 37.2 L (40.1-51.0) % MCV 88.6 (79.0-92.2) fl MCH 29.0 (25.7-32.2) pg MCHC 32.8 (32.2-35.5) g/dl RDW Std Deviation 44.5 H (35.1-43.9) fL Plt Count 362 H (163-337) K/mm3 MPV 9.5 (9.4-12.3) fl Neut % (Auto) 66.8 (34.0-67.9) % Lymph % (Auto) 17.3 L (21.8-53.1) % [place] % (Auto) 12.2 (5.3-12.2) % Eos % (Auto) 3.3 (0.8-7.0) Baso % (Auto) 0.2 (0.1-1.2) % Neut # (Auto) 5.51 H (1.78-5.38) K/mm3 Lymph # (Auto) 1.43 (1.32-3.57) K/mm3 [place] # (Auto) 1.01 H (0.30-0.82) K/mm3 Eos # (Auto) 0.27 (0.04-0.54) K/mm3 Baso # (Auto) 0.02 (0.01-0.08) K/mm3 Sodium 141 (136-145) mEq/L Potassium 3.8 (3.5-5.1) mEq/L Chloride 106 (98-107) mEq/L Carbon Dioxide 26 (21-32) mEq/L Anion Gap 12.8 (5-15) BUN 9 (7-18) mg/dL Creatinine 0.8 (0.7-1.3) mg/dL Est Cr Clr Drug Dosing 104.58 mL/min Estimated GFR (MDRD) > 60 (>60) mL/min BUN/Creatinine Ratio 11.3 L (14-18) Glucose 107 H (74-106) mg/dL Calcium 8.6 (8.5-10.1) mg/dL Magnesium 1.9 (1.8-2.4) mg/dl C-Reactive Protein 10.4 H* (<1.0) mg/dL Vancomycin Trough 8.9 L (10.0-20.0) Shawn Results last 24 hrs: Microbiology 11/24/16 18:56 Gram Stain - Final Knee, Right Med Orders - Current: Current Medications Hydrocodone Bitart/Acetaminophen ([place] 325-5 Mg) 1 tab PO Q6H PRN PRN Reason: Pain Last Admin: 11/25/16 08:35 Dose: 1 tab Amlodipine Besylate (Norvasc) 10 mg PO DAILY [facility] Last Admin: 11/25/16 08:35 Dose: 10 mg Carvedilol (Coreg) 6.25 mg PO BID [facility] Last Admin: 11/25/16 08:34 Dose: 6.25 mg Enoxaparin Sodium (Lovenox) 40 mg SUBCUT DAILY [facility] Last Admin: 11/25/16 08:35 Dose: 40 mg Hydromorphone HCl (Dilaudid) 1 mg IVPUSH Q4H PRN PRN Reason: Pain Levofloxacin/Dextrose 750 mg/ (Premix) 150 mls @ 100 mls/hr IV Q24H [facility] Last Admin: 11/24/16 20:29 Dose: 100 mls/hr Vancomycin HCl 1 gm/Vancomycin HCl 500 mg/ Sodium Chloride 500 mls @ 250 mls/ hr IV Q8H [facility] Last Admin: 11/25/16 02:59 Dose: 250 mls/hr Lisinopril (Prinivil) 10 mg PO DAILY [facility] Last Admin: 11/25/16 08:34 Dose: 10 mg Ondansetron HCl (Zofran) 4 mg IVPUSH Q8H PRN PRN Reason: Nausea/Vomiting Saccharomyces Boulardii (Florastor) 250 mg PO BID [facility] Last Admin: 11/25/16 08:35 Dose: 250 mg Sodium Chloride (Saline Flush) 10 ml FLUSH ASDIRECTED PRN PRN Reason: Keep Vein Open Last Admin: 11/21/16 18:31 Dose: 10 ml Tamsulosin HCl (Flomax) 0.4 mg PO BIDAC PRN PRN Reason: urinary retention Vancomycin HCl (Pharmacy To Dose - Vancomycin) 0 dose .XX ASDIRECTED PRN PRN Reason: rx dose Discontinued Medications Acetaminophen (Tylenol) 975 mg PO NOW ONE Stop: 11/21/16 17:31 Last Admin: 11/21/16 17:42 Dose: 975 mg Fentanyl (Sublimaze) Confirm Administered Dose 250 mcg .ROUTE .STK-MED ONE Stop: 11/24/16 18:28 Furosemide (Lasix) 10 mg IVPUSH NOW ONE Stop: 11/25/16 08:01 Last Admin: 11/25/16 08:36 Dose: 10 mg Piperacillin Sod/Tazobactam (Sod 4.5 gm/ Sodium Chloride) 100 mls @ 200 mls/hr IV ONETIME ONE Stop: 11/21/16 18:00 Last Admin: 11/21/16 17:40 Dose: 200 mls/hr Piperacillin Sod/Tazobactam (Sod 4.5 gm/ Sodium Chloride) 100 mls @ 25 mls/hr IV Q8H [facility] Last Admin: 11/22/16 17:54 Dose: 25 mls/hr Vancomycin HCl 2 gm/ Sodium (Chloride) 500 mls @ 333 mls/hr IV Q12H [facility] Last Admin: 11/23/16 11:27 Dose: Not Given Magnesium Sulfate 2 gm/ Premix 50 mls @ 25 mls/hr IV ONETIME ONE Stop: 11/22/16 22:32 Last Admin: 11/22/16 22:13 Dose: 25 mls/hr Vancomycin HCl 1 gm/Vancomycin HCl 250 mg/ Sodium Chloride 250 mls @ 167 mls/ hr IV Q8H [facility] Last Admin: 11/24/16 10:16 Dose: 167 mls/hr Vancomycin HCl 1 gm/Vancomycin HCl 500 mg/ Sodium Chloride 500 mls @ 334.014 mls/hr IV Q8H [facility] Last Admin: 11/24/16 11:32 Dose: Not Given Lidocaine HCl (Xylocaine-Mpf 1%) Confirm Administered Dose 4 mls @ as directed .ROUTE .STK-MED ONE Stop: 11/24/16 18:28 Lidocaine HCl (Xylocaine 1%) Confirm Administered Dose 50 ml .ROUTE .STK-MED ONE Stop: 11/21/16 18:11 Last Admin: 11/21/16 22:11 Dose: Not Given Lidocaine HCl (Xylocaine 1%) 20 ml INJECT ONETIME ONE Stop: 11/21/16 18:28 Last Admin: 11/21/16 18:30 Dose: Not Given Lidocaine HCl (Xylocaine 1%) Confirm Administered Dose 50 ml .ROUTE .STK-MED ONE Stop: 11/24/16 18:54 Last Admin: 11/24/16 19:13 Dose: 10 ml Lidocaine/Epinephrine (Xylocaine 1% With Epinephrine 1:100,000) Confirm Administered Dose 20 ml .ROUTE .STK-MED ONE Stop: 11/24/16 18:54 Midazolam HCl (Versed 1 Mg/Ml) Confirm Administered Dose 2 mg .ROUTE .STK-MED ONE Stop: 11/24/16 18:28 Propofol (Diprivan 20 Ml) Confirm Administered Dose 200 mg .ROUTE .STK-MED ONE Stop: 11/24/16 18:28 Propofol (Diprivan 20 Ml) Confirm Administered Dose 200 mg .ROUTE .STK-MED ONE Stop: 11/24/16 19:32 Tamsulosin HCl (Flomax) 0.4 mg PO BIDPC [facility] Last Admin: 11/22/16 17:59 Dose: Not Given Tamsulosin HCl (Flomax) 0.4 mg PO BIDAC PRN PRN Reason: Other Vancomycin HCl (Vancomycin) Confirm Administered Dose 2 gm .ROUTE .STK-MED ONE Stop: 11/24/16 18:46 Last Admin: 11/24/16 19:25 Dose: 2 gm - Exam Quality Assessment: DVT prophylaxis General: alert, oriented, cooperative, no acute distress HEENT: Pupils equal, Pupils reactive, EOMI, Mucous membr. moist/pink Neck: supple Lungs: Clear to auscultation, Normal respiratory effort Cardiovascular: Regular Rate, Regular Rhythm, No Murmurs Abdomen: bowel sounds present, soft, no tenderness, no distension (Male) Exam: Deferred Skin: warm, dry, other (right leg is with TKA incision/scar nicely healed, intact and without erythema. Dressing to medial upper calf is CDI, drain is present and draining minimal serosang. drainage. Erythema surrounding dressing is improved from last evening when I last examined. Distally CMS is +.) Wound/Incisions: dressing dry and intact Neurological: no new focal deficit Psy/Mental Status: alert, normal affect, normal mood - Problem List & Annotations (1) Cellulitis SNOMED Code(s): 321189281 Code(s): L03.90 - CELLULITIS, UNSPECIFIED Status: Acute Priority: High Current Visit: Yes Qualifiers: Site of cellulitis: extremity Site of cellulitis of extremity: lower extremity Laterality: right Qualified Code(s): L03.115 - Cellulitis of right lower limb Annotation/Comment:: Not involving knee joint at this time (2) Fever SNOMED Code(s): 451631089 Code(s): R50.9 - FEVER, UNSPECIFIED Status: Resolved Priority: High Current Visit: Yes Qualifiers: Fever type: unspecified Qualified Code(s): R50.9 - Fever, unspecified (3) HTN (hypertension) SNOMED Code(s): 03071467 Code(s): I10 - ESSENTIAL (PRIMARY) HYPERTENSION Status: Chronic Priority : Medium Current Visit: No Qualifiers: Hypertension type: essential hypertension Qualified Code(s): I10 - Essential (primary) hypertension (4) MORENA (obstructive sleep apnea) SNOMED Code(s): 27019604 Code(s): G47.33 - OBSTRUCTIVE SLEEP APNEA (ADULT) (PEDIATRIC) Status: Chronic Priority: Medium Current Visit: No (5) Obesity SNOMED Code(s): 505130567 Code(s): E66.9 - OBESITY, UNSPECIFIED Status: Chronic Priority: Medium Current Visit: No Qualifiers: Obesity severity: unspecified obesity severity - Problem List Review Problem List Initiated/Reviewed/Updated: Yes - Plan Plan:: Impression: RLE cellulitis- failed out patient therapy---does not appear to involve knee joint (recent TKA site) at this time. -6 wks prior to TKA patient had cyst removed from this site by Dr. Hargrove in prep for TKA. -Has MRSA exposure with brother having active infection currently -last evening had worsening of swelling; Dr. Conway- General Surgery consulted who discussed case with Dr. Hargrove. 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 -IV levaquin and Florastor-- will DC vancomycin -Elevate extremity -PT/OT -Reviewed final C&S with patient today; if he continues to do well/afebrile and labs stable overnight, will plan dc home tomorrow on oral levaquin with follow up with Orthopedics early next week. Wound care will be per Dr. Conway. Leukocytosis- etiology above, tx as above--improving---resolved this am S/P right knee arthroplasty- [address] Hargrove -Dr. Hargrove was notified and case discussed with him, per Dr Hinojosa, when patient was initially in ED with recommendations for oral abx. -Dr. Hargrove is out of office this week; I have been in touch with his PA and reviewed above noted case with her to update on patient status. Chronic: Morbid Obesity HTN- cont home meds MORENA- cont with CPAP GERD- cont home meds Other: DVT/GI prophylaxis Consult SW/CM for assist with DC planning-- likely home tomorrow on oral ABX Patient is full code status.
--- NOTE | 2016-11-25 09:48 | OR ---
DATE OF OPERATION: 11/24/2016 SURGEON: Robe Conawy MD PREOPERATIVE DIAGNOSIS: Abscess in the subcuticular tissue of the right knee, medial aspect involving what appears to be a bursa. POSTOPERATIVE DIAGNOSIS: Abscess in the subcuticular tissue of the right knee, medial aspect involving what appears to be a bursa. FINDINGS: A 5 x 8 cm fluid collection, which was cloudy and contained debris. This was drained and a Chavez-Miranda placed and brought out through a separate stab wound near the saphenous vein. The saphenous vein was taken down between suture ligature with 3-0 Vicryl suture and the wound was then closed over the Chavez- Miranda drain with installation of 2 g of vancomycin powder after irrigating the wound. ANESTHESIA: Procedure done under IV sedation, local anesthetic, 1% Xylocaine without epinephrine. DESCRIPTION OF PROCEDURE: The patient was taken to the operating room, placed in a supine position. Antibiotics had been previously given. After sedation was obtained, the area was then cleansed with Betadine and draped off in a sterile fashion. Previous incision, the abscess was pointing and this was opened and entered into the abscess and fluid was sucked out. It was cultured, finger was inserted and all loculations broken up and cheesy like material was aspirated with irrigation. Cultures were obtained. The abscess cavity was explored, no connection with the joint was noted. The abscess was oriented in the longest diameter from posterior to anterior 10 cm and the lower end of the abscess, an incision was made and a curved hemostats was inserted into the abscess cavity. A Chavez- Miranda 10 mm flat drain was placed. The saphenous vein was noted to be injured, and this was clamped and tied off between suture ligatures of 3-0 Vicryl suture. The subcuticular tissue around the Chavez-Miranda drain exit site was then closed with interrupted 3-0 Vicryl suture and the skin with interrupted 4-0 nylon suture. It was sutured to the skin, following this 2 g of vancomycin powder was placed and the previous draining incision was then closed. The subcuticular tissue with interrupted 0 Vicryl suture and the skin with interrupted 4-0 Prolene suture. Sterile dressing placed. The patient tolerated the procedure and sent to recovery room in a stable condition. OPERATION PERFORMED: ESTIMATED BLOOD LOSS: MMODAL /[id number]
--- NOTE | 2016-11-25 09:48 | CONS ---
CONSULTING PHYSICIAN: Robe Conway MD DATE OF CONSULTATION: 11/24/2016 HISTORY OF PRESENT ILLNESS: A 61-year-old who has cellulitis of right leg. At this point, I was asked to see him today for drainage. The patient developed this over the weekend and on the was seen in the emergency room where it was aspirated and cultured. Gram-positive coccus site were grown out. Sensitivities are still pending. The patient did have a temperature of 102, was placed in the hospital on antibiotics and the cellulitis has receded and now the abscess is pointing. He was seen in the ER by Dr. Herzog today who felt that this was not associated with the total knee arthroplasty, it was done 3 weeks ago. The patient states that the cyst was removed about 6 weeks prior to his total knee arthroplasty. The patient states that he has a PICC line and has been receiving long-term antibiotics. PAST MEDICAL HISTORY: That of some sleep apnea, gastroesophageal reflux disease, urethral stricture, history of migraines. PAST SURGICAL HISTORY: Arthroscopy, knee replacement, and cyst removed as stated above. SOCIAL HISTORY: Never smoked and no excessive alcohol use. FAMILY HISTORY: Noncontributory. REVIEW OF SYSTEMS: No chest pain, shortness of breath, cough, hoarseness, wheezing, fainting, weakness, numbness, or convulsions. PHYSICAL EXAMINATION: GENERAL: Reveals an alert and cooperative male. VITAL SIGNS: Show a temperature of 98, pulse 88, blood pressure 149/70. EYES: Sclerae white. Extraocular muscle motion normal. ORAL CAVITY: Healthy mucous membrane. NECK: Supple. No nodes. No thyromegaly. LUNGS: Clear. No rales, rhonchi, fremitus. HEART: Tones regular rate. No S3, S4, jugular venous distention, or murmurs. ABDOMEN: Soft. No tenderness, guarding, or rebound. EXTREMITIES: Knee arthroplasty in the right leg and midline incision which is intact and healing without problem. Off to the side is surgical incision, previous cyst removed with cellulitis extending for about 10 cm around this with fluctuation noted. NEUROLOGIC: Cranial nerves 3 through 10 intact. Neuro exam normal. MENTAL STATUS EXAM: Normal. SKIN: Normal. PSYCHIATRIC: Alert and cooperative. ASSESSMENT: Abscess on the right knee. PLAN: For incision and drainage. Discussed the procedure, risks, complications. He understands and consents. MMODAL /[id number]
[2016-11-25] MEDS ORDERED: Sodium Chloride 0.9% 10 ML Syringe FLUSH ONE (13:58)
[2016-11-25] MEDS ORDERED: Iopamidol 612 MG/ML 150 ML Bottle IVPUSH ONE (13:58)
[2016-11-25] MEDS ORDERED: Sodium Chloride 0.9% 100 ML IV SCH (14:00)
--- NOTE | 2016-11-25 14:52 | PCM.SURGPN ---
- General Info Date of Service: 11/25/16 POD#: 1 - Review of Systems General: Reports: No Symptoms Pulmonary: Reports: no symptoms Skin: Reports: no symptoms - Patient Data Vitals - most recent: Last Vital Signs Temp 98.4 F 11/25/16 08:08 Pulse 87 11/25/16 08:34 Resp 15 11/25/16 08:08 BP 157/86 H 11/25/16 08:35 Pulse Ox 95 11/25/16 08:08 Weight - most recent: 150.048 kg I&O - last 24 hours: Intake & Output 11/24/16 11/25/16 11/25/16 23:59 07:59 15:59 Intake Total 2590 1230 720 Output Total 200 Balance 2590 1030 720 Lab Results last 24 hrs: Laboratory Results - last 24 hr 11/25/16 11/25/16 11/25/16 Range/Units 06:33 06:33 09:30 WBC 8.26 (4.23-9.07) K/mm3 RBC 4.20 L (4.63-6.08) M/mm3 Hgb 12.2 L (13.7-17.5) gm/L Hct 37.2 L (40.1-51.0) % MCV 88.6 (79.0-92.2) fl MCH 29.0 (25.7-32.2) pg MCHC 32.8 (32.2-35.5) g/dl RDW Std Deviation 44.5 H (35.1-43.9) fL Plt Count 362 H (163-337) K/mm3 MPV 9.5 (9.4-12.3) fl Neut % (Auto) 66.8 (34.0-67.9) % Lymph % (Auto) 17.3 L (21.8-53.1) % [place] % (Auto) 12.2 (5.3-12.2) % Eos % (Auto) 3.3 (0.8-7.0) Baso % (Auto) 0.2 (0.1-1.2) % Neut # (Auto) 5.51 H (1.78-5.38) K/mm3 Lymph # (Auto) 1.43 (1.32-3.57) K/mm3 [place] # (Auto) 1.01 H (0.30-0.82) K/mm3 Eos # (Auto) 0.27 (0.04-0.54) K/mm3 Baso # (Auto) 0.02 (0.01-0.08) K/mm3 Sodium 141 (136-145) mEq/L Potassium 3.8 (3.5-5.1) mEq/L Chloride 106 (98-107) mEq/L Carbon Dioxide 26 (21-32) mEq/L Anion Gap 12.8 (5-15) BUN 9 (7-18) mg/dL Creatinine 0.8 (0.7-1.3) mg/dL Est Cr Clr Drug Dosing 104.58 mL/min Estimated GFR (MDRD) > 60 (>60) mL/min BUN/Creatinine Ratio 11.3 L (14-18) Glucose 107 H (74-106) mg/dL Calcium 8.6 (8.5-10.1) mg/dL Magnesium 1.9 (1.8-2.4) mg/dl C-Reactive Protein 10.4 H* (<1.0) mg/dL Vancomycin Trough 14.1 (10.0-20.0) Shawn Results last 24 hrs: Microbiology 11/24/16 18:56 Gram Stain - Final Knee, Right Anaerobic Culture - Preliminary Med Orders - Current: Current Medications Hydrocodone Bitart/Acetaminophen ([place] 325-5 Mg) 1 tab PO Q6H PRN PRN Reason: Pain Last Admin: 11/25/16 08:35 Dose: 1 tab Amlodipine Besylate (Norvasc) 10 mg PO DAILY [facility] Last Admin: 11/25/16 08:35 Dose: 10 mg Carvedilol (Coreg) 6.25 mg PO BID [facility] Last Admin: 11/25/16 08:34 Dose: 6.25 mg Enoxaparin Sodium (Lovenox) 40 mg SUBCUT DAILY [facility] Last Admin: 11/25/16 08:35 Dose: 40 mg Hydromorphone HCl (Dilaudid) 1 mg IVPUSH Q4H PRN PRN Reason: Pain Levofloxacin/Dextrose 750 mg/ (Premix) 150 mls @ 100 mls/hr IV Q24H [facility] Last Admin: 11/24/16 20:29 Dose: 100 mls/hr Sodium Chloride (Normal Saline) 100 mls @ 60 mls/hr IV ASDIRECTED [facility] Stop: 11/25/16 18:00 Last Admin: 11/25/16 14:30 Dose: 60 mls/hr Lisinopril (Prinivil) 10 mg PO DAILY [facility] Last Admin: 11/25/16 08:34 Dose: 10 mg Ondansetron HCl (Zofran) 4 mg IVPUSH Q8H PRN PRN Reason: Nausea/Vomiting Saccharomyces Boulardii (Florastor) 250 mg PO BID [facility] Last Admin: 11/25/16 08:35 Dose: 250 mg Sodium Chloride (Saline Flush) 10 ml FLUSH ASDIRECTED PRN PRN Reason: Keep Vein Open Last Admin: 11/21/16 18:31 Dose: 10 ml Tamsulosin HCl (Flomax) 0.4 mg PO BIDAC PRN PRN Reason: urinary retention Discontinued Medications Acetaminophen (Tylenol) 975 mg PO NOW ONE Stop: 11/21/16 17:31 Last Admin: 11/21/16 17:42 Dose: 975 mg Fentanyl (Sublimaze) Confirm Administered Dose 250 mcg .ROUTE .STK-MED ONE Stop: 11/24/16 18:28 Furosemide (Lasix) 10 mg IVPUSH NOW ONE Stop: 11/25/16 08:01 Last Admin: 11/25/16 08:36 Dose: 10 mg Piperacillin Sod/Tazobactam (Sod 4.5 gm/ Sodium Chloride) 100 mls @ 200 mls/hr IV ONETIME ONE Stop: 11/21/16 18:00 Last Admin: 11/21/16 17:40 Dose: 200 mls/hr Piperacillin Sod/Tazobactam (Sod 4.5 gm/ Sodium Chloride) 100 mls @ 25 mls/hr IV Q8H [facility] Last Admin: 11/22/16 17:54 Dose: 25 mls/hr Vancomycin HCl 2 gm/ Sodium (Chloride) 500 mls @ 333 mls/hr IV Q12H [facility] Last Admin: 11/23/16 11:27 Dose: Not Given Magnesium Sulfate 2 gm/ Premix 50 mls @ 25 mls/hr IV ONETIME ONE Stop: 11/22/16 22:32 Last Admin: 11/22/16 22:13 Dose: 25 mls/hr Vancomycin HCl 1 gm/Vancomycin HCl 250 mg/ Sodium Chloride 250 mls @ 167 mls/ hr IV Q8H [facility] Last Admin: 11/24/16 10:16 Dose: 167 mls/hr Vancomycin HCl 1 gm/Vancomycin HCl 500 mg/ Sodium Chloride 500 mls @ 334.014 mls/hr IV Q8H [facility] Last Admin: 11/24/16 11:32 Dose: Not Given Vancomycin HCl 1 gm/Vancomycin HCl 500 mg/ Sodium Chloride 500 mls @ 250 mls/ hr IV Q8H [facility] Last Admin: 11/25/16 02:59 Dose: 250 mls/hr Lidocaine HCl (Xylocaine-Mpf 1%) Confirm Administered Dose 4 mls @ as directed .ROUTE .STK-MED ONE Stop: 11/24/16 18:28 Iopamidol (Isovue-300 (61%)) 125 ml IVPUSH ONETIME ONE Stop: 11/25/16 13:59 Last Admin: 11/25/16 14:30 Dose: 125 ml Lidocaine HCl (Xylocaine 1%) Confirm Administered Dose 50 ml .ROUTE .STK-MED ONE Stop: 11/21/16 18:11 Last Admin: 11/21/16 22:11 Dose: Not Given Lidocaine HCl (Xylocaine 1%) 20 ml INJECT ONETIME ONE Stop: 11/21/16 18:28 Last Admin: 11/21/16 18:30 Dose: Not Given Lidocaine HCl (Xylocaine 1%) Confirm Administered Dose 50 ml .ROUTE .STK-MED ONE Stop: 11/24/16 18:54 Last Admin: 11/24/16 19:13 Dose: 10 ml Lidocaine/Epinephrine (Xylocaine 1% With Epinephrine 1:100,000) Confirm Administered Dose 20 ml .ROUTE .STK-MED ONE Stop: 11/24/16 18:54 Midazolam HCl (Versed 1 Mg/Ml) Confirm Administered Dose 2 mg .ROUTE .STK-MED ONE Stop: 11/24/16 18:28 Propofol (Diprivan 20 Ml) Confirm Administered Dose 200 mg .ROUTE .STK-MED ONE Stop: 11/24/16 18:28 Propofol (Diprivan 20 Ml) Confirm Administered Dose 200 mg .ROUTE .STK-MED ONE Stop: 11/24/16 19:32 Sodium Chloride (Saline Flush) 10 ml FLUSH ONETIME ONE Stop: 11/25/16 13:59 Last Admin: 11/25/16 14:30 Dose: 10 ml Tamsulosin HCl (Flomax) 0.4 mg PO BIDPC [facility] Last Admin: 11/22/16 17:59 Dose: Not Given Tamsulosin HCl (Flomax) 0.4 mg PO BIDAC PRN PRN Reason: Other Vancomycin HCl (Pharmacy To Dose - Vancomycin) 0 dose .XX ASDIRECTED PRN PRN Reason: rx dose Vancomycin HCl (Vancomycin) Confirm Administered Dose 2 gm .ROUTE .STK-MED ONE Stop: 11/24/16 18:46 Last Admin: 11/24/16 19:25 Dose: 2 gm - Exam Wound/Incisions: healing well, drainage, erythema improving - Problem List Review Problem List Initiated/Reviewed/Updated: Yes - My Orders Last 24 Hours: Active Orders 24 hr Category Date Time Status Notify Provider Consults [RC] ASDIRECTED Care 11/24/16 17:09 Active Wound Care [RC] DAILY Care 11/25/16 14:48 Ordered Consult to Physician [CONS] Routine Cons 11/24/16 17:09 Active Knee w Cont Rt [CT] Routine Exams 11/25/16 13:52 Taken CULTURE ANAEROBIC + SMEAR [RM] Stat Lab 11/24/16 18:56 Results Sodium Chloride 0.9% [Normal Saline] 100 ml Med 11/25/16 14:00 Active IV ASDIRECTED Schedule Procedure [COMM] Routine Oth 11/24/16 18:44 Ordered Medication Orders Hydrocodone Bitart/Acetaminophen ([place] 325-5 Mg) 1 tab PO Q6H PRN PRN Reason: Pain Last Admin: 11/25/16 08:35 Dose: 1 tab Admin: 11/25/16 03:05 Dose: 1 tab Admin: 11/24/16 20:29 Dose: 1 tab Amlodipine Besylate (Norvasc) 10 mg PO DAILY [facility] Last Admin: 11/25/16 08:35 Dose: 10 mg Admin: 11/24/16 08:42 Dose: 10 mg Admin: 11/23/16 09:48 Dose: 10 mg Admin: 11/22/16 09:27 Dose: 10 mg Admin: 11/21/16 22:10 Dose: Carvedilol (Coreg) 6.25 mg PO BID [facility] Last Admin: 11/25/16 08:34 Dose: 6.25 mg Admin: 11/24/16 20:30 Dose: 6.25 mg Admin: 11/24/16 08:43 Dose: 6.25 mg Admin: 11/23/16 20:54 Dose: 6.25 mg Admin: 11/23/16 09:48 Dose: 6.25 mg Enoxaparin Sodium (Lovenox) 40 mg SUBCUT DAILY [facility] Last Admin: 11/25/16 08:35 Dose: 40 mg Admin: 11/24/16 08:43 Dose: 40 mg Admin: 11/23/16 09:49 Dose: 40 mg Admin: 11/22/16 09:26 Dose: 40 mg Hydromorphone HCl (Dilaudid) 1 mg IVPUSH Q4H PRN PRN Reason: Pain Levofloxacin/Dextrose 750 mg/ (Premix) 150 mls @ 100 mls/hr IV Q24H [facility] Last Admin: 11/24/16 20:29 Dose: 100 mls/hr Infusion: 11/23/16 22:21 Dose: 100 mls/hr Admin: 11/23/16 20:51 Dose: 100 mls/hr Infusion: 11/22/16 23:36 Dose: 100 mls/hr Admin: 11/22/16 22:06 Dose: 100 mls/hr Sodium Chloride (Normal Saline) 100 mls @ 60 mls/hr IV ASDIRECTED [facility] Stop: 11/25/16 18:00 Last Admin: 11/25/16 14:30 Dose: 60 mls/hr Lisinopril (Prinivil) 10 mg PO DAILY [facility] Last Admin: 11/25/16 08:34 Dose: 10 mg Admin: 11/24/16 08:43 Dose: 10 mg Admin: 11/23/16 09:48 Dose: 10 mg Ondansetron HCl (Zofran) 4 mg IVPUSH Q8H PRN PRN Reason: Nausea/Vomiting Saccharomyces Boulardii (Florastor) 250 mg PO BID [facility] Last Admin: 11/25/16 08:35 Dose: 250 mg Admin: 11/24/16 20:29 Dose: 250 mg Admin: 11/24/16 08:42 Dose: 250 mg Admin: 11/23/16 20:54 Dose: 250 mg Admin: 11/23/16 09:49 Dose: 250 mg Sodium Chloride (Saline Flush) 10 ml FLUSH ASDIRECTED PRN PRN Reason: Keep Vein Open Last Admin: 11/21/16 18:31 Dose: 10 ml Tamsulosin HCl (Flomax) 0.4 mg PO BIDAC PRN PRN Reason: urinary retention - Plan Plan (Free Text/Narrative):: wound doing better PRANEETH drainage
--- NOTE | 2016-11-25 15:16 | CT ---
CT right knee Technique: Multiple axial sections were obtained through the right knee. Reconstructed coronal and sagittal images were reviewed. Intravenous contrast was utilized. Findings: Surgical drain is seen within the soft tissues of the medial and anterior knee. Air is noted in this region. Low density noted slightly inferior to the drain possibly due to abscess or less likely hematoma. This finding measures about 2.4 cm. Diffuse edema/inflammatory change is seen throughout the soft tissues of the anterior and medial knee. Artifact noted from knee prosthesis. No discrete bony abnormality is seen. Impression: 1. Low density collection inferior to surgical drain within the medial and anterior soft tissues of the knee. This low-density collection measures about 2.4 cm and differential includes abscess versus hematoma. Given the surrounding inflammatory/edematous soft tissue changes the etiology of abscess is felt to be more likely. This finding is located slightly inferior to surgical drain. 2. No bony abnormality is seen. Diagnostic code #3
[2016-11-25] MEDS: Acetaminophen 325 MG Tab PO PRN (18:36)
[2016-11-25] MEDS: Levofloxacin/Dextrose 5%-Water 750 MG in Premix Bag 1 BAG IV SCH (20:21)
--- NOTE | 2016-11-26 07:05 | PCM.PN ---
- General Info Date of Service: 11/26/16 Admission Dx/Problem (Free Text): Admission Diagnosis/Problem Admission Diagnosis/Problem Cellulitis Ascencion is seen today, resting comfortably in bed. Doing well; denies f/c/s, n/v/ d. Tolerating diet/food. Patient underwent I&D to right medial lower leg [address] Conway, drain present. Pain is minimal and well controlled now. He is ambulatory, doing well with PT/OT. Functional Status: Reports: pain controlled, tolerating diet, ambulating, urinating. Denies: new symptoms - Review of Systems General: Reports: No Symptoms HEENT: Reports: no symptoms Pulmonary: Reports: no symptoms Cardiovascular: Reports: No Symptoms Gastrointestinal: Reports: No symptoms Genitourinary: Reports: no symptoms Musculoskeletal: Reports: leg pain (minimal). Denies: joint swelling (none about knee joint; prior TKA site/incision is without erythema, nicely healed) Skin: Reports: no symptoms Neurological: Reports: No Symptoms Psychiatric: Reports: no symptoms - Patient Data Vitals - most recent: Last Vital Signs Temp 99.0 F 11/26/16 02:55 Pulse 80 11/26/16 02:55 Resp 16 11/26/16 02:55 BP 136/79 11/26/16 02:55 Pulse Ox 94 L 11/26/16 02:55 Weight - most recent: 329 lb 8 oz I&O - last 24 hours: Intake & Output 11/25/16 11/25/16 11/26/16 14:59 22:59 06:59 Intake Total 720 1120 525 Output Total 1125 1050 Balance 720 -5 -525 Lab Results last 24 hrs: Laboratory Results - last 24 hr 11/25/16 11/25/16 11/25/16 Range/Units 06:33 06:33 09:30 WBC 8.26 (4.23-9.07) K/mm3 RBC 4.20 L (4.63-6.08) M/mm3 Hgb 12.2 L (13.7-17.5) gm/L Hct 37.2 L (40.1-51.0) % MCV 88.6 (79.0-92.2) fl MCH 29.0 (25.7-32.2) pg MCHC 32.8 (32.2-35.5) g/dl RDW Std Deviation 44.5 H (35.1-43.9) fL Plt Count 362 H (163-337) K/mm3 MPV 9.5 (9.4-12.3) fl Neut % (Auto) 66.8 (34.0-67.9) % Lymph % (Auto) 17.3 L (21.8-53.1) % [place] % (Auto) 12.2 (5.3-12.2) % Eos % (Auto) 3.3 (0.8-7.0) Baso % (Auto) 0.2 (0.1-1.2) % Neut # (Auto) 5.51 H (1.78-5.38) K/mm3 Lymph # (Auto) 1.43 (1.32-3.57) K/mm3 [place] # (Auto) 1.01 H (0.30-0.82) K/mm3 Eos # (Auto) 0.27 (0.04-0.54) K/mm3 Baso # (Auto) 0.02 (0.01-0.08) K/mm3 Sodium 141 (136-145) mEq/L Potassium 3.8 (3.5-5.1) mEq/L Chloride 106 (98-107) mEq/L Carbon Dioxide 26 (21-32) mEq/L Anion Gap 12.8 (5-15) BUN 9 (7-18) mg/dL Creatinine 0.8 (0.7-1.3) mg/dL Est Cr Clr Drug Dosing 104.58 mL/min Estimated GFR (MDRD) > 60 (>60) mL/min BUN/Creatinine Ratio 11.3 L (14-18) Glucose 107 H (74-106) mg/dL Calcium 8.6 (8.5-10.1) mg/dL Magnesium 1.9 (1.8-2.4) mg/dl C-Reactive Protein 10.4 H* (<1.0) mg/dL Vancomycin Trough 14.1 (10.0-20.0) Shawn Results last 24 hrs: Microbiology 11/24/16 18:56 Gram Stain - Final Knee, Right Med Orders - Current: Current Medications Acetaminophen (Tylenol) 650 mg PO Q4H PRN PRN Reason: Pain/Fever Last Admin: 11/25/16 18:36 Dose: 650 mg Hydrocodone Bitart/Acetaminophen ([place] 325-5 Mg) 1 tab PO Q6H PRN PRN Reason: Pain Last Admin: 11/25/16 08:35 Dose: 1 tab Amlodipine Besylate (Norvasc) 10 mg PO DAILY [facility] Last Admin: 11/25/16 08:35 Dose: 10 mg Carvedilol (Coreg) 6.25 mg PO BID [facility] Last Admin: 11/25/16 20:18 Dose: 6.25 mg Enoxaparin Sodium (Lovenox) 40 mg SUBCUT DAILY [facility] Last Admin: 11/25/16 08:35 Dose: 40 mg Hydromorphone HCl (Dilaudid) 1 mg IVPUSH Q4H PRN PRN Reason: Pain Levofloxacin/Dextrose 750 mg/ (Premix) 150 mls @ 100 mls/hr IV Q24H [facility] Last Admin: 11/25/16 20:21 Dose: 100 mls/hr Ondansetron HCl (Zofran) 4 mg IVPUSH Q8H PRN PRN Reason: Nausea/Vomiting Saccharomyces Boulardii (Florastor) 250 mg PO BID [facility] Last Admin: 11/25/16 20:21 Dose: 250 mg Sodium Chloride (Saline Flush) 10 ml FLUSH ASDIRECTED PRN PRN Reason: Keep Vein Open Last Admin: 11/21/16 18:31 Dose: 10 ml Tamsulosin HCl (Flomax) 0.4 mg PO BIDAC PRN PRN Reason: urinary retention Discontinued Medications Acetaminophen (Tylenol) 975 mg PO NOW ONE Stop: 11/21/16 17:31 Last Admin: 11/21/16 17:42 Dose: 975 mg Fentanyl (Sublimaze) Confirm Administered Dose 250 mcg .ROUTE .STK-MED ONE Stop: 11/24/16 18:28 Furosemide (Lasix) 10 mg IVPUSH NOW ONE Stop: 11/25/16 08:01 Last Admin: 11/25/16 08:36 Dose: 10 mg Piperacillin Sod/Tazobactam (Sod 4.5 gm/ Sodium Chloride) 100 mls @ 200 mls/hr IV ONETIME ONE Stop: 11/21/16 18:00 Last Admin: 11/21/16 17:40 Dose: 200 mls/hr Piperacillin Sod/Tazobactam (Sod 4.5 gm/ Sodium Chloride) 100 mls @ 25 mls/hr IV Q8H [facility] Last Admin: 11/22/16 17:54 Dose: 25 mls/hr Vancomycin HCl 2 gm/ Sodium (Chloride) 500 mls @ 333 mls/hr IV Q12H [facility] Last Admin: 11/23/16 11:27 Dose: Not Given Magnesium Sulfate 2 gm/ Premix 50 mls @ 25 mls/hr IV ONETIME ONE Stop: 11/22/16 22:32 Last Admin: 11/22/16 22:13 Dose: 25 mls/hr Vancomycin HCl 1 gm/Vancomycin HCl 250 mg/ Sodium Chloride 250 mls @ 167 mls/ hr IV Q8H [facility] Last Admin: 11/24/16 10:16 Dose: 167 mls/hr Vancomycin HCl 1 gm/Vancomycin HCl 500 mg/ Sodium Chloride 500 mls @ 334.014 mls/hr IV Q8H [facility] Last Admin: 11/24/16 11:32 Dose: Not Given Vancomycin HCl 1 gm/Vancomycin HCl 500 mg/ Sodium Chloride 500 mls @ 250 mls/ hr IV Q8H [facility] Last Admin: 11/25/16 02:59 Dose: 250 mls/hr Lidocaine HCl (Xylocaine-Mpf 1%) Confirm Administered Dose 4 mls @ as directed .ROUTE .STK-MED ONE Stop: 11/24/16 18:28 Sodium Chloride (Normal Saline) 100 mls @ 60 mls/hr IV ASDIRECTED [facility] Stop: 11/25/16 18:00 Last Admin: 11/25/16 14:30 Dose: 60 mls/hr Iopamidol (Isovue-300 (61%)) 125 ml IVPUSH ONETIME ONE Stop: 11/25/16 13:59 Last Admin: 11/25/16 14:30 Dose: 125 ml Lidocaine HCl (Xylocaine 1%) Confirm Administered Dose 50 ml .ROUTE .STK-MED ONE Stop: 11/21/16 18:11 Last Admin: 11/21/16 22:11 Dose: Not Given Lidocaine HCl (Xylocaine 1%) 20 ml INJECT ONETIME ONE Stop: 11/21/16 18:28 Last Admin: 11/21/16 18:30 Dose: Not Given Lidocaine HCl (Xylocaine 1%) Confirm Administered Dose 50 ml .ROUTE .STK-MED ONE Stop: 11/24/16 18:54 Last Admin: 11/24/16 19:13 Dose: 10 ml Lidocaine/Epinephrine (Xylocaine 1% With Epinephrine 1:100,000) Confirm Administered Dose 20 ml .ROUTE .STK-MED ONE Stop: 11/24/16 18:54 Lisinopril (Prinivil) 10 mg PO DAILY [facility] Last Admin: 11/25/16 08:34 Dose: 10 mg Midazolam HCl (Versed 1 Mg/Ml) Confirm Administered Dose 2 mg .ROUTE .STK-MED ONE Stop: 11/24/16 18:28 Propofol (Diprivan 20 Ml) Confirm Administered Dose 200 mg .ROUTE .STK-MED ONE Stop: 11/24/16 18:28 Propofol (Diprivan 20 Ml) Confirm Administered Dose 200 mg .ROUTE .STK-MED ONE Stop: 11/24/16 19:32 Sodium Chloride (Saline Flush) 10 ml FLUSH ONETIME ONE Stop: 11/25/16 13:59 Last Admin: 11/25/16 14:30 Dose: 10 ml Tamsulosin HCl (Flomax) 0.4 mg PO BIDPC [facility] Last Admin: 11/22/16 17:59 Dose: Not Given Tamsulosin HCl (Flomax) 0.4 mg PO BIDAC PRN PRN Reason: Other Vancomycin HCl (Pharmacy To Dose - Vancomycin) 0 dose .XX ASDIRECTED PRN PRN Reason: rx dose Vancomycin HCl (Vancomycin) Confirm Administered Dose 2 gm .ROUTE .STK-MED ONE Stop: 11/24/16 18:46 Last Admin: 11/24/16 19:25 Dose: 2 gm - Exam Quality Assessment: DVT prophylaxis General: alert, oriented, cooperative, no acute distress HEENT: Pupils equal, Pupils reactive, EOMI, Mucous membr. moist/pink Neck: supple Lungs: Clear to auscultation, Normal respiratory effort Cardiovascular: Regular Rate, Regular Rhythm Abdomen: bowel sounds present, soft, no tenderness, no distension (Male) Exam: Deferred Extremities: other (. CMS is intact distally) Peripheral Pulses: 1+: Dorsalis Pedis (L), Dorsalis Pedis (R) Skin: warm, dry Neurological: no new focal deficit Psy/Mental Status: alert, normal affect, normal mood - Problem List & Annotations (1) Cellulitis SNOMED Code(s): 858891877 Code(s): L03.90 - CELLULITIS, UNSPECIFIED Status: Acute Priority: High Current Visit: Yes Qualifiers: Site of cellulitis: extremity Site of cellulitis of extremity: lower extremity Laterality: right Qualified Code(s): L03.115 - Cellulitis of right lower limb Annotation/Comment:: Not involving knee joint at this time (2) Fever SNOMED Code(s): 416200266 Code(s): R50.9 - FEVER, UNSPECIFIED Status: Resolved Priority: High Current Visit: Yes Qualifiers: Fever type: unspecified Qualified Code(s): R50.9 - Fever, unspecified (3) HTN (hypertension) SNOMED Code(s): 61852083 Code(s): I10 - ESSENTIAL (PRIMARY) HYPERTENSION Status: Chronic Priority : Medium Current Visit: No Qualifiers: Hypertension type: essential hypertension Qualified Code(s): I10 - Essential (primary) hypertension (4) MORENA (obstructive sleep apnea) SNOMED Code(s): 40973155 Code(s): G47.33 - OBSTRUCTIVE SLEEP APNEA (ADULT) (PEDIATRIC) Status: Chronic Priority: Medium Current Visit: No (5) Obesity SNOMED Code(s): 293103744 Code(s): E66.9 - OBESITY, UNSPECIFIED Status: Chronic Priority: Medium Current Visit: No Qualifiers: Obesity severity: unspecified obesity severity - Problem List Review Problem List Initiated/Reviewed/Updated: Yes - My Orders Last 24 Hours: My Active Orders 11/26/16 06:48 BASIC METABOLIC PANEL,BMP [CHEM] Routine C-REACTIVE PROTEIN [CHEM] Routine CBC WITH AUTO DIFF [HEME] Routine 11/26/16 09:00 Lisinopril [Prinivil] 20 mg PO DAILY - Plan Plan:: Impression: RLE cellulitis- failed out patient therapy---does not appear to involve knee joint (recent TKA site) at this time. -6 wks prior to TKA patient had cyst removed from this site by Dr. Hargrove in prep for TKA. 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 Conway- General Surgery consulted who discussed case with Dr. Hargrove. 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 -IV levaquin and Florastor-- will DC vancomycin -Elevate extremity -PT/OT -CT of knee obtained yesterday at Dr. Perez suggestion; ? of abscess vs hematoma; awaiting Dr. Zoraida durand of patient for his opinion on CT findings today. Clinically patient is much improved. Leukocytosis- etiology above, tx as above--improving---resolved this am; CRP much improved S/P right knee arthroplasty- [address] Hargrove -Dr. Hargrove was notified and case discussed with him, per Dr Hinojosa, when patient was initially in ED with recommendations for oral abx. -Dr. Hargrove is out of office this week; I have been in touch with his PA and reviewed above noted case with her to update on patient status. Chronic: Morbid Obesity HTN- cont home meds MORENA- cont with CPAP GERD- cont home meds Other: DVT/GI prophylaxis Consult SW/CM for assist with DC planning-- likely home tomorrow on oral ABX Patient is full code status.
[2016-11-26 07:54] VITALS: BP 149/81
[2016-11-26] MEDS ORDERED: Lisinopril 20 MG Tab PO SCH (09:00)
[2016-11-26] MEDS: amLODIPine 10 MG Tab PO SCH (09:36)
[2016-11-26] MEDS: Acetaminophen 325 MG Tab PO PRN (09:36)
[2016-11-26] MEDS: Saccharomyces Boulardii (Probiotic) 250 MG Cap PO SCH (09:36)
[2016-11-26] MEDS: Carvedilol 6.25 MG Tab PO SCH (09:37)
[2016-11-26] MEDS: Enoxaparin 40 MG/0.4 ML Syringe SUBCUT SCH (09:37)
[2016-11-26] MEDS ORDERED: Sodium Chloride 0.9% 10 ML Syringe FLUSH PRN (10:56)
--- NOTE | 2016-11-26 11:53 | PCM.SURGPN ---
- General Info Date of Service: 11/26/16 POD#: 2 - Review of Systems General: Reports: No Symptoms - Patient Data Vitals - most recent: Last Vital Signs Temp 98.8 F 11/26/16 07:52 Pulse 86 11/26/16 09:37 Resp 14 11/26/16 07:52 BP 149/81 H 11/26/16 09:37 Pulse Ox 93 L 11/26/16 07:52 Weight - most recent: 149.459 kg I&O - last 24 hours: Intake & Output 11/25/16 11/26/16 11/26/16 23:59 07:59 15:59 Intake Total 320 525 240 Output Total 1050 Balance 320 -525 240 Lab Results last 24 hrs: Laboratory Results - last 24 hr 11/26/16 11/26/16 Range/Units 07:21 07:21 WBC 7.31 (4.23-9.07) K/mm3 RBC 4.47 L (4.63-6.08) M/mm3 Hgb 12.6 L (13.7-17.5) gm/L Hct 39.4 L (40.1-51.0) % MCV 88.1 (79.0-92.2) fl MCH 28.2 (25.7-32.2) pg MCHC 32.0 L (32.2-35.5) g/dl RDW Std Deviation 44.2 H (35.1-43.9) fL Plt Count 373 H (163-337) K/mm3 MPV 9.1 L (9.4-12.3) fl Neut % (Auto) 66.9 (34.0-67.9) % Lymph % (Auto) 19.2 L (21.8-53.1) % [place] % (Auto) 8.6 (5.3-12.2) % Eos % (Auto) 4.7 (0.8-7.0) Baso % (Auto) 0.3 (0.1-1.2) % Neut # (Auto) 4.90 (1.78-5.38) K/mm3 Lymph # (Auto) 1.40 (1.32-3.57) K/mm3 [place] # (Auto) 0.63 (0.30-0.82) K/mm3 Eos # (Auto) 0.34 (0.04-0.54) K/mm3 Baso # (Auto) 0.02 (0.01-0.08) K/mm3 Sodium 140 (136-145) mEq/L Potassium 4.0 (3.5-5.1) mEq/L Chloride 104 (98-107) mEq/L Carbon Dioxide 28 (21-32) mEq/L Anion Gap 12.0 (5-15) BUN 9 (7-18) mg/dL Creatinine 0.8 (0.7-1.3) mg/dL Est Cr Clr Drug Dosing 104.58 mL/min Estimated GFR (MDRD) > 60 (>60) mL/min BUN/Creatinine Ratio 11.3 L (14-18) Glucose 106 (74-106) mg/dL Calcium 8.6 (8.5-10.1) mg/dL C-Reactive Protein 6.4 H* (<1.0) mg/dL Shawn Results last 24 hrs: Microbiology 11/24/16 18:56 Gram Stain - Final Knee, Right Anaerobic Culture - Preliminary Gram Positive Cocci Med Orders - Current: Current Medications Acetaminophen (Tylenol) 650 mg PO Q4H PRN PRN Reason: Pain/Fever Last Admin: 11/26/16 09:36 Dose: 650 mg Hydrocodone Bitart/Acetaminophen ([place] 325-5 Mg) 1 tab PO Q6H PRN PRN Reason: Pain Last Admin: 11/25/16 08:35 Dose: 1 tab Amlodipine Besylate (Norvasc) 10 mg PO DAILY ON LICENSE OF [facility] Last Admin: 11/26/16 09:36 Dose: 10 mg Carvedilol (Coreg) 6.25 mg PO BID ON LICENSE OF [facility] Last Admin: 11/26/16 09:37 Dose: 6.25 mg Enoxaparin Sodium (Lovenox) 40 mg SUBCUT DAILY ON LICENSE OF [facility] Last Admin: 11/26/16 09:37 Dose: 40 mg Hydromorphone HCl (Dilaudid) 1 mg IVPUSH Q4H PRN PRN Reason: Pain Levofloxacin/Dextrose 750 mg/ (Premix) 150 mls @ 100 mls/hr IV Q24H ON LICENSE OF [facility] Last Admin: 11/25/16 20:21 Dose: 100 mls/hr Lisinopril (Prinivil) 20 mg PO DAILY ON LICENSE OF [facility] Last Admin: 11/26/16 09:37 Dose: 20 mg Ondansetron HCl (Zofran) 4 mg IVPUSH Q8H PRN PRN Reason: Nausea/Vomiting Saccharomyces Boulardii (Florastor) 250 mg PO BID ON LICENSE OF [facility] Last Admin: 11/26/16 09:36 Dose: 250 mg Sodium Chloride (Saline Flush) 10 ml FLUSH ASDIRECTED PRN PRN Reason: Keep Vein Open Tamsulosin HCl (Flomax) 0.4 mg PO BIDAC PRN PRN Reason: urinary retention Discontinued Medications Acetaminophen (Tylenol) 975 mg PO NOW ONE Stop: 11/21/16 17:31 Last Admin: 11/21/16 17:42 Dose: 975 mg Fentanyl (Sublimaze) Confirm Administered Dose 250 mcg .ROUTE .STK-MED ONE Stop: 11/24/16 18:28 Furosemide (Lasix) 10 mg IVPUSH NOW ONE Stop: 11/25/16 08:01 Last Admin: 11/25/16 08:36 Dose: 10 mg Piperacillin Sod/Tazobactam (Sod 4.5 gm/ Sodium Chloride) 100 mls @ 200 mls/hr IV ONETIME ONE Stop: 11/21/16 18:00 Last Admin: 11/21/16 17:40 Dose: 200 mls/hr Piperacillin Sod/Tazobactam (Sod 4.5 gm/ Sodium Chloride) 100 mls @ 25 mls/hr IV Q8H ON LICENSE OF [facility] Last Admin: 11/22/16 17:54 Dose: 25 mls/hr Vancomycin HCl 2 gm/ Sodium (Chloride) 500 mls @ 333 mls/hr IV Q12H ON LICENSE OF [facility] Last Admin: 11/23/16 11:27 Dose: Not Given Magnesium Sulfate 2 gm/ Premix 50 mls @ 25 mls/hr IV ONETIME ONE Stop: 11/22/16 22:32 Last Admin: 11/22/16 22:13 Dose: 25 mls/hr Vancomycin HCl 1 gm/Vancomycin HCl 250 mg/ Sodium Chloride 250 mls @ 167 mls/ hr IV Q8H ON LICENSE OF [facility] Last Admin: 11/24/16 10:16 Dose: 167 mls/hr Vancomycin HCl 1 gm/Vancomycin HCl 500 mg/ Sodium Chloride 500 mls @ 334.014 mls/hr IV Q8H ON LICENSE OF [facility] Last Admin: 11/24/16 11:32 Dose: Not Given Vancomycin HCl 1 gm/Vancomycin HCl 500 mg/ Sodium Chloride 500 mls @ 250 mls/ hr IV Q8H ON LICENSE OF [facility] Last Admin: 11/25/16 02:59 Dose: 250 mls/hr Lidocaine HCl (Xylocaine-Mpf 1%) Confirm Administered Dose 4 mls @ as directed .ROUTE .STK-MED ONE Stop: 11/24/16 18:28 Sodium Chloride (Normal Saline) 100 mls @ 60 mls/hr IV ASDIRECTED ON LICENSE OF [facility] Stop: 11/25/16 18:00 Last Admin: 11/25/16 14:30 Dose: 60 mls/hr Iopamidol (Isovue-300 (61%)) 125 ml IVPUSH ONETIME ONE Stop: 11/25/16 13:59 Last Admin: 11/25/16 14:30 Dose: 125 ml Lidocaine HCl (Xylocaine 1%) Confirm Administered Dose 50 ml .ROUTE .STK-MED ONE Stop: 11/21/16 18:11 Last Admin: 11/21/16 22:11 Dose: Not Given Lidocaine HCl (Xylocaine 1%) 20 ml INJECT ONETIME ONE Stop: 11/21/16 18:28 Last Admin: 11/21/16 18:30 Dose: Not Given Lidocaine HCl (Xylocaine 1%) Confirm Administered Dose 50 ml .ROUTE .STK-MED ONE Stop: 11/24/16 18:54 Last Admin: 11/24/16 19:13 Dose: 10 ml Lidocaine/Epinephrine (Xylocaine 1% With Epinephrine 1:100,000) Confirm Administered Dose 20 ml .ROUTE .STK-MED ONE Stop: 11/24/16 18:54 Lisinopril (Prinivil) 10 mg PO DAILY ON LICENSE OF [facility] Last Admin: 11/25/16 08:34 Dose: 10 mg Midazolam HCl (Versed 1 Mg/Ml) Confirm Administered Dose 2 mg .ROUTE .STK-MED ONE Stop: 11/24/16 18:28 Propofol (Diprivan 20 Ml) Confirm Administered Dose 200 mg .ROUTE .STK-MED ONE Stop: 11/24/16 18:28 Propofol (Diprivan 20 Ml) Confirm Administered Dose 200 mg .ROUTE .STK-MED ONE Stop: 11/24/16 19:32 Sodium Chloride (Saline Flush) 10 ml FLUSH ASDIRECTED PRN PRN Reason: Keep Vein Open Last Admin: 11/21/16 18:31 Dose: 10 ml Sodium Chloride (Saline Flush) 10 ml FLUSH ONETIME ONE Stop: 11/25/16 13:59 Last Admin: 11/25/16 14:30 Dose: 10 ml Tamsulosin HCl (Flomax) 0.4 mg PO BIDPC [facility] Last Admin: 11/22/16 17:59 Dose: Not Given Tamsulosin HCl (Flomax) 0.4 mg PO BIDAC PRN PRN Reason: Other Vancomycin HCl (Pharmacy To Dose - Vancomycin) 0 dose .XX ASDIRECTED PRN PRN Reason: rx dose Vancomycin HCl (Vancomycin) Confirm Administered Dose 2 gm .ROUTE .STK-MED ONE Stop: 11/24/16 18:46 Last Admin: 11/24/16 19:25 Dose: 2 gm - Exam Wound/Incisions: healing well, other (erythema receding PRANEETH drain 25 cc eve3ry 12 hours which is clear ) - Problem List Review Problem List Initiated/Reviewed/Updated: Yes - My Orders Last 24 Hours: Active Orders 24 hr Category Date Time Status Wound Care [RC] DAILY Care 11/25/16 14:48 Active Acetaminophen [Tylenol] Med 11/25/16 18:26 Active 650 mg PO Q4H PRN Lisinopril [Prinivil] Med 11/26/16 09:00 Active 20 mg PO DAILY Sodium Chloride 0.9% [Saline Flush] Med 11/26/16 10:56 Active 10 ml FLUSH ASDIRECTED PRN Medication Orders Acetaminophen (Tylenol) 650 mg PO Q4H PRN PRN Reason: Pain/Fever Last Admin: 11/26/16 09:36 Dose: 650 mg Admin: 11/25/16 18:36 Dose: 650 mg Hydrocodone Bitart/Acetaminophen ([place] 325-5 Mg) 1 tab PO Q6H PRN PRN Reason: Pain Last Admin: 11/25/16 08:35 Dose: 1 tab Admin: 11/25/16 03:05 Dose: 1 tab Admin: 11/24/16 20:29 Dose: 1 tab Amlodipine Besylate (Norvasc) 10 mg PO DAILY [facility] Last Admin: 11/26/16 09:36 Dose: 10 mg Admin: 11/25/16 08:35 Dose: 10 mg Admin: 11/24/16 08:42 Dose: 10 mg Admin: 11/23/16 09:48 Dose: 10 mg Admin: 11/22/16 09:27 Dose: 10 mg Admin: 11/21/16 22:10 Dose: Carvedilol (Coreg) 6.25 mg PO BID ON LICENSE OF [facility] Last Admin: 11/26/16 09:37 Dose: 6.25 mg Admin: 11/25/16 20:18 Dose: 6.25 mg Admin: 11/25/16 08:34 Dose: 6.25 mg Admin: 11/24/16 20:30 Dose: 6.25 mg Admin: 11/24/16 08:43 Dose: 6.25 mg Admin: 11/23/16 20:54 Dose: 6.25 mg Admin: 11/23/16 09:48 Dose: 6.25 mg Enoxaparin Sodium (Lovenox) 40 mg SUBCUT DAILY ON LICENSE OF [facility] Last Admin: 11/26/16 09:37 Dose: 40 mg Admin: 11/25/16 08:35 Dose: 40 mg Admin: 11/24/16 08:43 Dose: 40 mg Admin: 11/23/16 09:49 Dose: 40 mg Admin: 11/22/16 09:26 Dose: 40 mg Hydromorphone HCl (Dilaudid) 1 mg IVPUSH Q4H PRN PRN Reason: Pain Levofloxacin/Dextrose 750 mg/ (Premix) 150 mls @ 100 mls/hr IV Q24H ON LICENSE OF [facility] Last Admin: 11/25/16 20:21 Dose: 100 mls/hr Admin: 11/24/16 20:29 Dose: 100 mls/hr Infusion: 11/23/16 22:21 Dose: 100 mls/hr Admin: 11/23/16 20:51 Dose: 100 mls/hr Infusion: 11/22/16 23:36 Dose: 100 mls/hr Admin: 11/22/16 22:06 Dose: 100 mls/hr Lisinopril (Prinivil) 20 mg PO DAILY ON LICENSE OF [facility] Last Admin: 11/26/16 09:37 Dose: 20 mg Ondansetron HCl (Zofran) 4 mg IVPUSH Q8H PRN PRN Reason: Nausea/Vomiting Saccharomyces Boulardii (Florastor) 250 mg PO BID ON LICENSE OF [facility] Last Admin: 11/26/16 09:36 Dose: 250 mg Admin: 11/25/16 20:21 Dose: 250 mg Admin: 11/25/16 08:35 Dose: 250 mg Admin: 11/24/16 20:29 Dose: 250 mg Admin: 11/24/16 08:42 Dose: 250 mg Admin: 11/23/16 20:54 Dose: 250 mg Admin: 11/23/16 09:49 Dose: 250 mg Sodium Chloride (Saline Flush) 10 ml FLUSH ASDIRECTED PRN PRN Reason: Keep Vein Open Tamsulosin HCl (Flomax) 0.4 mg PO BIDAC PRN PRN Reason: urinary retention - Plan Plan (Free Text/Narrative):: improved discussed with DR. Hargrove and have elected to remove the PRANEETH and follow up with Dr. Hargrove next week BRY
--- NOTE | 2016-11-26 12:08 | PCM.DCSUM1 ---
Discharge Summary - Hospital Course Free Text/Narrative:: 61-year-old male returns to the ED with worsening cellulitis of the right leg and now new onset of fever and chills . He was evaluated about 5 or 6 hours ago earlier today are new onset erythema and swelling consistent with cellulitis right lower leg. See that record for details. Of Concern he had total right knee replacement less than 3 weeks ago. I did discuss this with Dr. Kong, his Orthopedist who felt that it would be safe to treat him outpatient with oral antibiotics. We did give him clindamycin 450 mg orally while here in the ED and also doxycycline 200 mg orally. He went back to his home in [place], had an hour nap, awakened with a temp of around 102.7. The area of swelling and erythema of his leg seemed to be enlarging. He was advised to return. He states that he continues to feel some tightness in the area of swelling and inflammation but continues to have no knee pain. He does not have pain with motion of the leg at the knee joint other than some tightness which he has been having postoperatively. He is not diabetic. There has been no drainage of fluid. In ED patient had aspiration/drainage of site to medial proximal lower leg per Dr. Hinojosa with 45cc of brownish fluid returned and sent for culture. Hospitalist service is consulted for admission for cellulitis to rt lower extremity. Due to his status of TKA [address] Hargrove patient is started on Vancomycin and Levaquin IV abx and hydrated, antipyretics and pain medications. Cultures grew gram positive cocci, confirmed as strep lugdunensis- pansensitive. Vancomycin was DC'd and levaquin continued. During the time of waiting for C&S, PICC line was inserted for IV abx. Labs slowly improved. Site of infection initially improved and then became more red and swollen over site of prior cyst removal. Dr. Conway was consulted as Dr. Hargrove was out of town. Dr. Conway took patient to OR for I&D of site. See OP note for details. Dr. Hargrove was updated on patients status per Dr. Conway. Patient continued to do well , labs and VSS. He was ambulatory with PT, doing well with that. Afebrile. Tolerating meals without nausea. During his stay TKA site remained free of s/s of infection/erythema/swelling. He is discharged home to [place] today with PO levaquin and probiotic. PARNEETH drain and PICC line were DC'd prior to discharge. Wound care/dressing care reviewed with patient, he is comfortable caring for this at home. He is aware to return to ER over weekend if this becomes red/hot/ swollen/fevers or any other concerns. He will follow up with Dr. Hargrove on Wednesday of next week for recheck. - Discharge Data Discharge Date: 11/26/16 (admit date 11/21/16) Discharge Disposition: Home, Self-Care 01 Condition: Good - Discharge Diagnosis/Problem(s) (1) Cellulitis SNOMED Code(s): 103926987 ICD Code: L03.90 - CELLULITIS, UNSPECIFIED Status: Acute Priority: High Current Visit: Yes Problem Details: Not involving knee joint at this time Qualifiers: Site of cellulitis: extremity Site of cellulitis of extremity: lower extremity Laterality: right Qualified Code(s): L03.115 - Cellulitis of right lower limb (2) Fever SNOMED Code(s): 646351176 ICD Code: R50.9 - FEVER, UNSPECIFIED Status: Resolved Priority: High Current Visit: Yes Qualifiers: Fever type: unspecified Qualified Code(s): R50.9 - Fever, unspecified (3) HTN (hypertension) SNOMED Code(s): 46260978 ICD Code: I10 - ESSENTIAL (PRIMARY) HYPERTENSION Status: Chronic Priority : Medium Current Visit: No Qualifiers: Hypertension type: essential hypertension Qualified Code(s): I10 - Essential (primary) hypertension (4) MORENA (obstructive sleep apnea) SNOMED Code(s): 83298874 ICD Code: G47.33 - OBSTRUCTIVE SLEEP APNEA (ADULT) (PEDIATRIC) Status: Chronic Priority: Medium Current Visit: No (5) Obesity SNOMED Code(s): 389463920 ICD Code: E66.9 - OBESITY, UNSPECIFIED Status: Chronic Priority: Medium Current Visit: No Qualifiers: Obesity severity: unspecified obesity severity - Patient Summary/Data Operative Procedure(s) Performed: drainage of abscess sub qu tissue of the rt knee with instalation of vacomycin powder and closure over a PRANEETH drain Complications: None Consults: Consultations 11/21/16 19:21 Consult to Care Management [Consult to Case Management] [CONS] Routine 11/22/16 09:00 Consult to Physical Therapy [PT Evaluation and Treatment] [CONS] Routine 11/23/16 09:00 Consult to Occupational Therapy [OT Evaluation and Treatment] [CONS] Routine 11/24/16 17:09 Consult to Physician [CONS] Routine Labs Pending at D/C: None Recommended Follow-up Testing/Procedures: Follow up with Orthopedics, Dr. Hargrove on Wednesday12/01/16 at 2pm Follow up with Dr. Conway, General Surgery as needed Follow up with Adrián Vance PA-C, PCP within 1-2 weeks of discharge Planned Operative Procedure(s) after DC: None Hospital Course: As above - Patient Instructions Diet: Heart Healthy Diet, Drink 8-10+ Glasses/Day Activity: As Tolerated, Elevate Extremity Driving: Do Not Drive Showering/Bathing: May Shower, No Tub Bathing/Swimming Wound/Incision Care: Keep Operative Site/Wound Site Clean and Dry, Change Dressing Daily Notify Provider of: Fever, Increased Pain, Swelling and Redness, Drainage, Nausea and/or Vomiting - Discharge Plan Prescriptions/Med Rec: Acetaminophen/HYDROcodone [[place] 325-5 MG] 1 tab PO Q6H PRN #30 tablet PRN Reason: Pain Bifidobacter. Bifidum/B.Longum [Florajen Bifidoblend] 460 mg PO DAILY #30 capsule Levofloxacin [Levaquin] 750 mg PO DAILY #10 tablet Lisinopril [Prinivil] 20 mg PO DAILY #30 tablet Home Medications: Home Meds Nebivolol HCl [Bystolic] 10 mg PO DAILY 02/25/16 [History] Tadalafil [Cialis] 10 mg PO ASDIRECTED PRN 09/16/16 [History] amLODIPine [Norvasc] 10 mg PO DAILY 09/16/16 [History] Aspirin [Ecotrin] 325 mg PO BID #84 tab.ec 11/03/16 [Rx] Cyclobenzaprine [Flexeril] 10 mg PO TID PRN #40 tablet 11/03/16 [Rx] Acetaminophen [Tylenol] 1,000 mg PO BID 11/21/16 [History] Tamsulosin [Flomax] 0.4 mg PO BIDAC PRN 11/21/16 [History] Acetaminophen/HYDROcodone [[place] 325-5 MG] 1 tab PO Q6H PRN #30 tablet 11/26/16 [Rx] Bifidobacter. Bifidum/B.Longum [Florajen Bifidoblend] 460 mg PO DAILY #30 capsule 11/26/16 [Rx] Levofloxacin [Levaquin] 750 mg PO DAILY #10 tablet 11/26/16 [Rx] Lisinopril [Prinivil] 20 mg PO DAILY #30 tablet 11/26/16 [Rx] Patient Handouts: Cellulitis, Adult, [id number] Forms: ED Department Discharge Referrals: Adrián Vance PA-C [Primary Care Provider] - 12/02/16 2:45 pm (Please follow up with Adrián Vance on WednesdayDecember 02 at 2:45pm. Please arrive on time. ) Bharat Hargrove MD [Physician] - 12/01/16 2:00 pm (Please follow up with Jess Chavez on December 01 2:00 pm. ) - Discharge Summary/Plan Comment DC Time >30 min.: Yes (40 min) - General Info Date of Service: 11/26/16 Admission Dx/Problem (Free Text: Admission Diagnosis/Problem Admission Diagnosis/Problem Cellulitis Ascencion is seen today, resting comfortably in bed. Doing well; denies f/c/s, n/v/ d. Tolerating diet/food. Patient underwent I&D to right medial lower leg [address] Conway, drain present. Pain is minimal and well controlled now. He is ambulatory, doing well with PT/OT. Functional Status: Reports: pain controlled, tolerating diet, ambulating, urinating. Denies: new symptoms - Review of Systems General: Reports: No Symptoms HEENT: Reports: no symptoms Pulmonary: Reports: no symptoms Cardiovascular: Reports: No Symptoms Gastrointestinal: Reports: No symptoms Genitourinary: Reports: no symptoms Musculoskeletal: Reports: leg pain (minimal rt lower leg pain) Skin: Reports: no symptoms Neurological: Reports: No Symptoms Psychiatric: Reports: no symptoms - Patient Data Vitals - Most Recent: Last Vital Signs Temp 98.8 F 11/26/16 07:52 Pulse 86 11/26/16 09:37 Resp 14 11/26/16 07:52 BP 149/81 H 11/26/16 09:37 Pulse Ox 93 L 11/26/16 07:52 Weight - Most Recent: 329 lb 8 oz I&O - Last 24 hours: Intake & Output 11/25/16 11/26/16 11/26/16 22:59 06:59 14:59 Intake Total 1120 525 240 Output Total 1125 1050 Balance -5 -525 240 Lab Results - Last 24 hrs: Laboratory Results - last 24 hr 11/26/16 11/26/16 Range/Units 07:21 07:21 WBC 7.31 (4.23-9.07) K/mm3 RBC 4.47 L (4.63-6.08) M/mm3 Hgb 12.6 L (13.7-17.5) gm/L Hct 39.4 L (40.1-51.0) % MCV 88.1 (79.0-92.2) fl MCH 28.2 (25.7-32.2) pg MCHC 32.0 L (32.2-35.5) g/dl RDW Std Deviation 44.2 H (35.1-43.9) fL Plt Count 373 H (163-337) K/mm3 MPV 9.1 L (9.4-12.3) fl Neut % (Auto) 66.9 (34.0-67.9) % Lymph % (Auto) 19.2 L (21.8-53.1) % Love % (Auto) 8.6 (5.3-12.2) % Eos % (Auto) 4.7 (0.8-7.0) Baso % (Auto) 0.3 (0.1-1.2) % Neut # (Auto) 4.90 (1.78-5.38) K/mm3 Lymph # (Auto) 1.40 (1.32-3.57) K/mm3 Love # (Auto) 0.63 (0.30-0.82) K/mm3 Eos # (Auto) 0.34 (0.04-0.54) K/mm3 Baso # (Auto) 0.02 (0.01-0.08) K/mm3 Sodium 140 (136-145) mEq/L Potassium 4.0 (3.5-5.1) mEq/L Chloride 104 (98-107) mEq/L Carbon Dioxide 28 (21-32) mEq/L Anion Gap 12.0 (5-15) BUN 9 (7-18) mg/dL Creatinine 0.8 (0.7-1.3) mg/dL Est Cr Clr Drug Dosing 104.58 mL/min Estimated GFR (MDRD) > 60 (>60) mL/min BUN/Creatinine Ratio 11.3 L (14-18) Glucose 106 (74-106) mg/dL Calcium 8.6 (8.5-10.1) mg/dL C-Reactive Protein 6.4 H* (<1.0) mg/dL LUCY Results - Last 24 hrs: Microbiology 11/24/16 18:56 Gram Stain - Final Knee, Right Anaerobic Culture - Preliminary Gram Positive Cocci Med Orders - Current: Current Medications Acetaminophen (Tylenol) 650 mg PO Q4H PRN PRN Reason: Pain/Fever Last Admin: 11/26/16 09:36 Dose: 650 mg Hydrocodone Bitart/Acetaminophen ([place] 325-5 Mg) 1 tab PO Q6H PRN PRN Reason: Pain Last Admin: 11/25/16 08:35 Dose: 1 tab Amlodipine Besylate (Norvasc) 10 mg PO DAILY [facility] Last Admin: 11/26/16 09:36 Dose: 10 mg Carvedilol (Coreg) 6.25 mg PO BID [facility] Last Admin: 11/26/16 09:37 Dose: 6.25 mg Enoxaparin Sodium (Lovenox) 40 mg SUBCUT DAILY [facility] Last Admin: 11/26/16 09:37 Dose: 40 mg Hydromorphone HCl (Dilaudid) 1 mg IVPUSH Q4H PRN PRN Reason: Pain Levofloxacin/Dextrose 750 mg/ (Premix) 150 mls @ 100 mls/hr IV Q24H [facility] Last Admin: 11/25/16 20:21 Dose: 100 mls/hr Lisinopril (Prinivil) 20 mg PO DAILY [facility] Last Admin: 11/26/16 09:37 Dose: 20 mg Ondansetron HCl (Zofran) 4 mg IVPUSH Q8H PRN PRN Reason: Nausea/Vomiting Saccharomyces Boulardii (Florastor) 250 mg PO BID [facility] Last Admin: 11/26/16 09:36 Dose: 250 mg Sodium Chloride (Saline Flush) 10 ml FLUSH ASDIRECTED PRN PRN Reason: Keep Vein Open Tamsulosin HCl (Flomax) 0.4 mg PO BIDAC PRN PRN Reason: urinary retention Discontinued Medications Acetaminophen (Tylenol) 975 mg PO NOW ONE Stop: 11/21/16 17:31 Last Admin: 11/21/16 17:42 Dose: 975 mg Fentanyl (Sublimaze) Confirm Administered Dose 250 mcg .ROUTE .STK-MED ONE Stop: 11/24/16 18:28 Furosemide (Lasix) 10 mg IVPUSH NOW ONE Stop: 11/25/16 08:01 Last Admin: 11/25/16 08:36 Dose: 10 mg Piperacillin Sod/Tazobactam (Sod 4.5 gm/ Sodium Chloride) 100 mls @ 200 mls/hr IV ONETIME ONE Stop: 11/21/16 18:00 Last Admin: 11/21/16 17:40 Dose: 200 mls/hr Piperacillin Sod/Tazobactam (Sod 4.5 gm/ Sodium Chloride) 100 mls @ 25 mls/hr IV Q8H [facility] Last Admin: 11/22/16 17:54 Dose: 25 mls/hr Vancomycin HCl 2 gm/ Sodium (Chloride) 500 mls @ 333 mls/hr IV Q12H [facility] Last Admin: 11/23/16 11:27 Dose: Not Given Magnesium Sulfate 2 gm/ Premix 50 mls @ 25 mls/hr IV ONETIME ONE Stop: 11/22/16 22:32 Last Admin: 11/22/16 22:13 Dose: 25 mls/hr Vancomycin HCl 1 gm/Vancomycin HCl 250 mg/ Sodium Chloride 250 mls @ 167 mls/ hr IV Q8H [facility] Last Admin: 11/24/16 10:16 Dose: 167 mls/hr Vancomycin HCl 1 gm/Vancomycin HCl 500 mg/ Sodium Chloride 500 mls @ 334.014 mls/hr IV Q8H [facility] Last Admin: 11/24/16 11:32 Dose: Not Given Vancomycin HCl 1 gm/Vancomycin HCl 500 mg/ Sodium Chloride 500 mls @ 250 mls/ hr IV Q8H [facility] Last Admin: 11/25/16 02:59 Dose: 250 mls/hr Lidocaine HCl (Xylocaine-Mpf 1%) Confirm Administered Dose 4 mls @ as directed .ROUTE .STK-MED ONE Stop: 11/24/16 18:28 Sodium Chloride (Normal Saline) 100 mls @ 60 mls/hr IV ASDIRECTED [facility] Stop: 11/25/16 18:00 Last Admin: 11/25/16 14:30 Dose: 60 mls/hr Iopamidol (Isovue-300 (61%)) 125 ml IVPUSH ONETIME ONE Stop: 11/25/16 13:59 Last Admin: 11/25/16 14:30 Dose: 125 ml Lidocaine HCl (Xylocaine 1%) Confirm Administered Dose 50 ml .ROUTE .STK-MED ONE Stop: 11/21/16 18:11 Last Admin: 11/21/16 22:11 Dose: Not Given Lidocaine HCl (Xylocaine 1%) 20 ml INJECT ONETIME ONE Stop: 11/21/16 18:28 Last Admin: 11/21/16 18:30 Dose: Not Given Lidocaine HCl (Xylocaine 1%) Confirm Administered Dose 50 ml .ROUTE .STK-MED ONE Stop: 11/24/16 18:54 Last Admin: 11/24/16 19:13 Dose: 10 ml Lidocaine/Epinephrine (Xylocaine 1% With Epinephrine 1:100,000) Confirm Administered Dose 20 ml .ROUTE .STK-MED ONE Stop: 11/24/16 18:54 Lisinopril (Prinivil) 10 mg PO DAILY [facility] Last Admin: 11/25/16 08:34 Dose: 10 mg Midazolam HCl (Versed 1 Mg/Ml) Confirm Administered Dose 2 mg .ROUTE .STK-MED ONE Stop: 11/24/16 18:28 Propofol (Diprivan 20 Ml) Confirm Administered Dose 200 mg .ROUTE .STK-MED ONE Stop: 11/24/16 18:28 Propofol (Diprivan 20 Ml) Confirm Administered Dose 200 mg .ROUTE .STK-MED ONE Stop: 11/24/16 19:32 Sodium Chloride (Saline Flush) 10 ml FLUSH ASDIRECTED PRN PRN Reason: Keep Vein Open Last Admin: 11/21/16 18:31 Dose: 10 ml Sodium Chloride (Saline Flush) 10 ml FLUSH ONETIME ONE Stop: 11/25/16 13:59 Last Admin: 11/25/16 14:30 Dose: 10 ml Tamsulosin HCl (Flomax) 0.4 mg PO BIDPC [facility] Last Admin: 11/22/16 17:59 Dose: Not Given Tamsulosin HCl (Flomax) 0.4 mg PO BIDAC PRN PRN Reason: Other Vancomycin HCl (Pharmacy To Dose - Vancomycin) 0 dose .XX ASDIRECTED PRN PRN Reason: rx dose Vancomycin HCl (Vancomycin) Confirm Administered Dose 2 gm .ROUTE .STK-MED ONE Stop: 11/24/16 18:46 Last Admin: 11/24/16 19:25 Dose: 2 gm - Exam Quality Assessment: Reports: DVT prophylaxis General: Reports: alert, oriented, cooperative, no acute distress HEENT: Reports: Pupils equal, Pupils reactive, EOMI, Mucous membr. moist/pink Neck: Reports: supple Lungs: Reports: Clear to auscultation, Normal respiratory effort Cardiovascular: Reports: Regular Rate, Regular Rhythm Abdomen: Reports: bowel sounds present, soft, no tenderness, no distension (Male) Exam: Deferred Rectal (Males) Exam: Deferred Extremities: Reports: no calf tenderness, other (right medial proximal calf: two incisions with wound edges nicely approximated, no erythema. PRANEETH drain is in place. This is removed per Dr. Conway when in room this afternoon without difficulty and intact. Bacitracin and 4X4 dressing with kerlix applied per Dr. Conway. TKA site is without s/s of infection, no erythema surrounding TKA surgical site which is nicely healed. CMS is + distally. ) Neurological: Reports: no new focal deficit Psy/Mental Status: Reports: alert, normal affect, normal mood *Q Meaningful Use (DIS) - VTE *Q VTE Criteria *Q: - Stroke *Q Stroke Criteria *Q: - AMI *Q AMI Criteria *Q:
== END 2016-11-26 14:20 | disposition home or self-care (01) | DRG 950 ==
LOC: JD.ED 16:54 → JD.MS 18:44
PROVIDERS: ADMIT Internal Medicine Cardiovascular Disease; ATTEND Internal Medicine Cardiovascular Disease
PROC: 02H633Z Insertion of Infusion Device into Right Atrium, Percutaneous Approach (ICD-10-PCS; 2016-11-23)
PROC: 0S9C00Z Drainage of Right Knee Joint with Drainage Device, Open Approach (ICD-10-PCS; principal; 2016-11-24)
DX: L03.115 Cellulitis of right lower limb (principal); L02.415 Cutaneous abscess of right lower limb; B95.7 Other staphylococcus as the cause of diseases classified elsewhere; D50.9 Iron deficiency anemia, unspecified; I10 Essential (primary) hypertension; G47.33 Obstructive sleep apnea (adult) (pediatric); K21.9 Gastro-esophageal reflux disease without esophagitis; M19.90 Unspecified osteoarthritis, unspecified site; M81.0 Age-related osteoporosis without current pathological fracture; E66.01 Morbid (severe) obesity due to excess calories; Z68.30 Body mass index [BMI] 30.0-30.9, adult; Z96.651 Presence of right artificial knee joint; Z79.82 Long term (current) use of aspirin; Z79.899 Other long term (current) drug therapy; Z88.1 Allergy status to other antibiotic agents
CPT/HCPCS: 00400; 10060; 10160; 36415; 36569; 73701-26-RT; 73701-RT; 80048; 80202; 82565; 83605; 83735; 85025; 86140; 87040; 87070; 87075; 87077; 87186; 87205; 96365; 97110-GP; 97116-GP; 97161-GP; 97165-GO; 99284-25; 99285-25; A9270-GY; C1751; J1650; J1956; J2250; J2543; J2704; J3010; J3370; J3475; J7030; J7040; J7050; Q9967

== ENCOUNTER 2017-02-15 06:03 | Inpatient (IN) | payer BC ==
[~2017-02-15 06:03] MED LIST changes: -Lactated Ringers 1,000 ML IV SCH; -Lidocaine 1%/Sod Bicarbonate in NS 8.4% 1 ML Syringe PRN
[2017-02-15] MEDS ORDERED: Bupivacaine 0.25% 30 ML SDV ONE (06:13)
[2017-02-15] MEDS: Lactated Ringers 1,000 ML IV SCH ×2 (06:30→11:33)
[2017-02-15] MEDS ORDERED: Ondansetron 4 MG/2 ML SDV IVPUSH PRN (06:45)
[2017-02-15] MEDS ORDERED: ceFAZolin 2 GM in Sodium Chloride 0.9% 100 ML IV SCH (06:45)
[2017-02-15] MEDS ORDERED: Magnesium Hydroxide 400 MG/5 ML Susp 30 ML Cup PO PRN (06:45)
[2017-02-15] MEDS ORDERED: Bisacodyl 5 MG Tab PO PRN (06:45)
[2017-02-15] MEDS ORDERED: Naloxone 0.4 MG/ML SDV IVPUSH PRN (06:45)
[2017-02-15] MEDS ORDERED: diphenhydrAMINE 50 MG/ML SDV IVPUSH PRN (06:45)
[2017-02-15] MEDS ORDERED: Sennosides 8.6 MG Tab PO PRN (06:45)
[2017-02-15] MEDS ORDERED: Morphine PF 10 MG/10 ML SDV ONE (06:57)
[2017-02-15] MEDS ORDERED: ceFAZolin 1 GM Vial ONE (06:58)
[2017-02-15] MEDS ORDERED: Midazolam 1 MG/ML 2 ML SDV ONE ×2 (06:59→08:51)
--- NOTE | 2017-02-15 07:10 | PCM.PREANE ---
Preanesthetic Assessment - Procedure Proposed Procedure: Left Knee Replacement - Anesthesia/Transfusion/Family Hx Anesthesia History: Prior Anesthesia Without Reaction Transfusion History: No Prior Transfusion(s) - Review of Systems General: No Symptoms Pulmonary: No Symptoms Cardiovascular: No Symptoms Gastrointestinal: No Symptoms Neurological: No Symptoms Other: 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 - Physical Assessment NPO Status Date: 02/14/17 NPO Status Time: 21:30 O2 Sat by Pulse Oximetry: 94 Respiratory Rate: 16 Vital Signs: Last Vital Signs Temp 37.6 C 02/15/17 06:30 Pulse 78 02/15/17 06:30 Resp 16 02/15/17 06:30 BP 167/84 H 02/15/17 06:30 Pulse Ox 94 L 02/15/17 06:30 Height: 1.8 m Weight: 155.582 kg ASA Class: 3 Mental Status: Alert & Oriented x3 Airway Class: Mallampati = 3 Dentition: Reports: Level [place](s), Bridge Thyro-Mental Finger Breadths: 3 Mouth Opening Finger Breadths: 3 ROM/Head Extension: Full Lungs: Clear to Auscultation, Normal Respiratory Effort Cardiovascular: Regular Rate, Regular Rhythm - Lab Values: Laboratory Last Values MRSA (PCR) Negative 01/29/17 11:21 Labs 01/26/17 [facility] BMP, CBC and Coags all essentially normal - Imaging/EKG Impressions: EKG 09/03/16 SR with borderline intraventrc condux delay - Allergies Allergies/Adverse Reactions: Allergies Allergy/AdvReac Type Severity Reaction Status Date / Time erythromycin base Allergy Hives Verified 02/11/17 16:24 sulfamethoxazole Allergy Hives Verified 02/11/17 16:24 [From Bactrim] trimethoprim [From Bactrim] Allergy Hives Verified 02/11/17 16:24 - Anesthesia Plan Beta Catalino: Carvedilol Med Last Dose Date: 02/15/17 Med Last Dose Time: 07:08 - Acknowledgements Anesthesia Type Planned: Spinal Pt an Appropriate Candidate for the Planned Anesthesia: Yes Alternatives and Risks of Anesthesia Discussed w Pt/Guardian: Yes Pt/Guardian Understands and Agrees with Anesthesia Plan: Yes PreAnesthesia Questionnaire HEENT History: Reports: Otitis Media, Other (See Below) Other HEENT History: bacterial conjunctivitis, otitis media, wears glasses Cardiovascular History: Reports: Hypertension Respiratory History: Reports: Sleep Apnea, Other (See Below) Other Respiratory History: snoring, use of CPAP Gastrointestinal History: 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, GERD Other Gastrointestinal History: Umbilical hernia Genitourinary History: Reports: Other (See Below) Other Genitourinary History: urethral stricture [employer] History: 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 Musculoskeletal History: Reports: Arthritis, Osteoporosis, Other (See Below) Other Musculoskeletal History: bilateral degenerative arthritis of bilateral knees, R knee mass Neurological History: Reports: Migraines Psychiatric History: 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 Endocrine/Metabolic History: Reports: Obesity/BMI 30+ Hematologic History: 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 Immunologic History: 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 Oncologic (Cancer) History: 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 Other Oncologic History: To left lower eye Dermatologic History: 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 Other Dermatologic History: CUrrently admitted for cellulitis too Right lower knee/retibial area - Infectious Disease History Infectious Disease History: Reports: Chicken Pox, Measles, Mumps, Shingles - Past Surgical History Head Surgeries/Procedures: 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 HEENT Surgical History: 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 Cardiovascular Surgical History: 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 Respiratory Surgical History: 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 GI Surgical History: 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 Male Surgical History: Reports: Other (See Below) Other Male Surgeries/Procedures: Urethral dilitation. Resolved the problems. R/T to the spinal done with the RTKA, decreased ability to urinate, causing the stricture Endocrine Surgical History: 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 Neurological Surgical History: 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 Musculoskeletal Surgical History: Reports: Arthroscopic Knee, Knee Replacement, Other (See Below) Other Musculoskeletal Surgeries/Procedures:: right knee replacement, begnin cyst removed from medial aspect of right knee. Oncologic Surgical History: 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 Dermatological Surgical History: 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 - Past Imaging History Past Imaging History: 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 - SUBSTANCE USE Smoking Status *Q: Never Smoker Tobacco Use Within Last Twelve Months: No Second Hand Smoke Exposure: No Days Per Week of Alcohol Use: 1 Number of Drinks Per Day: 3 Total Drinks Per Week: 3 Recreational Drug Use History: No - HOME MEDS Home Medications: Home Meds Tadalafil [Cialis] 10 mg PO ASDIRECTED PRN 09/16/16 [History] amLODIPine [Norvasc] 10 mg PO DAILY 09/16/16 [History] Lisinopril [Prinivil] 20 mg PO DAILY #30 tablet 11/26/16 [Rx] Hydrochlorothiazide 25 mg PO DAILY 02/11/17 [History] Nebivolol [Bystolic] 10 mg PO DAILY 02/11/17 [History] traMADol [Ultram] 50 mg PO Q12H PRN 02/11/17 [History] - CURRENT (IN HOUSE) MEDS Current Meds: Current Medications Aspirin (Ecotrin) 325 mg PO BID [facility] Bisacodyl (Dulcolax) 5 mg PO DAILY PRN PRN Reason: Constipation Diphenhydramine HCl (Benadryl) 25 mg IVPUSH Q4H PRN PRN Reason: Nausea Docusate Sodium (Colace) 100 mg PO BID PRN PRN Reason: Constipation Famotidine (Pepcid) 20 mg PO Q12H [facility] Lactated Ringer's (Ringers, Lactated) 1,000 mls @ 125 mls/hr IV ASDIRECTED [facility] Last Admin: 02/15/17 06:30 Dose: 125 mls/hr Cefazolin Sodium/Dextrose (Ancef) 50 mls @ 100 mls/hr IV Q8H [facility] Lidocaine/Sodium Bicarbonate (Buffered Lidocaine 1% In Ns 8.4%) 0.25 ml IV ONETIME PRN PRN Reason: Prior to IV Start Last Admin: 02/15/17 06:29 Dose: 0.25 ml Magnesium Hydroxide (Milk Of Magnesia) 30 ml PO BID PRN PRN Reason: Constipation Morphine Sulfate (Morphine) 2 mg IVPUSH Q2H PRN PRN Reason: Breakthrough Pain Ondansetron HCl (Zofran) 4 mg IVPUSH Q6H PRN PRN Reason: Nausea/Vomiting Oxycodone/Acetaminophen (Percocet 325-5 Mg) 2 tab PO Q4H PRN PRN Reason: Pain Senna (Senna) 8.6 mg PO BID PRN PRN Reason: Constipation Sodium Chloride (Saline Flush) 10 ml FLUSH ASDIRECTED PRN PRN Reason: Keep Vein Open Tamsulosin HCl (Flomax) 0.4 mg PO BIDPC [facility] Discontinued Medications Bupivacaine HCl (Marcaine 0.25%) Confirm Administered Dose 30 ml .ROUTE .STK- MED ONE Stop: 02/15/17 06:14 Cefazolin Sodium (Ancef) Confirm Administered Dose 2 gm .ROUTE .STK-MED ONE Stop: 02/15/17 06:13 Cefazolin Sodium (Ancef) Confirm Administered Dose 3 gm .ROUTE .STK-MED ONE Stop: 02/15/17 06:59 Iodine (Iodine 2% Mild Tincture) Confirm Administered Dose 30 ml .ROUTE .STK- MED ONE Stop: 02/15/17 06:14 Midazolam HCl (Versed 1 Mg/Ml) Confirm Administered Dose 2 mg .ROUTE .STK-MED ONE Stop: 02/15/17 07:00 Morphine Sulfate (Duramorph Pf) Confirm Administered Dose 10 mg .ROUTE .STK-MED ONE Stop: 02/15/17 06:58 Naloxone HCl (Narcan) 0.1 mg IVPUSH Q5M PRN PRN Reason: Oversedation Stop: 02/15/17 07:01 Tranexamic Acid (Cyklokapron) Confirm Administered Dose 1,000 mg .ROUTE .STK- MED ONE Stop: 02/15/17 06:13
[2017-02-15] MEDS ORDERED: Carvedilol 6.25 MG Tab PO ONE (07:14)
[2017-02-15] MEDS ORDERED: Propofol 200 MG/20 ML SDV ONE ×3 (07:38→08:25)
[2017-02-15] MEDS ORDERED: Lidocaine 1% 4 ML ONE (07:40)
[2017-02-15] MEDS: Iodine/Sodium Iodide 2% Tincture 30 ML Bottle ONE ×2 (08:05→08:42)
[2017-02-15] MEDS: ceFAZolin 1 GM Vial ONE ×2 (08:06→08:46)
[2017-02-15] MEDS ORDERED: TADALAFIL 10 MG PO PRN (08:49)
[2017-02-15] MEDS: Morphine 8 MG, EPINEPHrine 0.3 MG, Cefuroxime 750 MG, Ketorolac 30 MG, Sodium Chloride ... ONE ×10 (08:58→20:07)
[2017-02-15] MEDS ORDERED: Carvedilol 6.25 MG Tab PO SCH (09:00)
[2017-02-15] MEDS ORDERED: amLODIPine 10 MG Tab PO SCH (09:00)
--- NOTE | 2017-02-15 09:44 | PCM.POSTAN ---
POST ANESTHESIA ASSESSMENT - MENTAL STATUS Mental Status: Alert, Oriented - VITAL SIGNS Pulse Rate: 70 SaO2: 93 (RA) Resp Rate: 17 Blood Pressure: 109/65 Temperature: 36.7 C - RESPIRATORY Respiratory Status: Respiratory Rate WNL, Airway Patent, O2 Saturation Stable - CARDIOVASCULAR CV Status: Pulse Rate WNL, Blood Pressure Stable - GASTROINTESTINAL GI Status: No Symptoms - PAIN Pain Score: 0 - POST OP HYDRATION Hydration Status: Adequate & Stable
[2017-02-15] MEDS ORDERED: fentaNYL 100 MCG/2 ML SDV IVPUSH PRN (10:40)
[2017-02-15] MEDS: Famotidine 20 MG Tab PO SCH ×2 (11:05→18:06)
[2017-02-15] MEDS: Hydrochlorothiazide 25 MG Tab PO SCH (11:17)
[2017-02-15] MEDS: Tamsulosin 0.4 MG Cap.ER PO SCH ×2 (11:18→18:06)
--- NOTE | 2017-02-15 11:27 | CR ---
Left knee: AP and lateral views of the left knee were obtained. Comparison: Previous left knee study of 12/02/15. Knee prosthesis is seen. This has been recently placed. Components are aligned. Underlying bony structures are intact. Soft tissue air is seen. Impression: 1. Satisfactory radiographic appearance of a recently placed left knee prosthesis. Diagnostic code #2
[2017-02-15] MEDS: Docusate Sodium 100 MG Cap PO PRN (11:33)
[2017-02-15] MEDS: Acetaminophen/oxyCODONE 325-5 MG Tab PO PRN ×3 (12:10→20:13)
--- NOTE | 2017-02-15 12:56 | PCM.CONS ---
H&P History of Present Illness - General Date of Service: 02/15/17 Admit Problem/Dx: Admission Diagnosis/Problem Admission Diagnosis/Problem Arthritis of left knee Ascencion is seen this morning s/p Lt TKA with Dr. Hargrove. Pain controlled, spinal still in effect- able to move his leg, wiggle toes and feeling in his toes. No nausea, tolerating liquids. Condom catheter in place, has not voided yet. With last surgery (Rt TKA) had difficulty with voiding postoperatively. Source of Information: Patient, Old Records, Other (anesthesia notes) History Limitations: Reports: No Limitations - History of Present Illness Location: Reports: Upper Extremity, Left Left Knee Pain Score (Numeric/FACES): 4 - Related Data Allergies/Adverse Reactions: Allergies Allergy/AdvReac Type Severity Reaction Status Date / Time erythromycin base Allergy Hives Verified 02/11/17 16:24 sulfamethoxazole Allergy Hives Verified 02/11/17 16:24 [From Bactrim] trimethoprim [From Bactrim] Allergy Hives Verified 02/11/17 16:24 Home Medications: Home Meds Tadalafil [Cialis] 10 mg PO ASDIRECTED PRN 09/16/16 [History] amLODIPine [Norvasc] 10 mg PO DAILY 09/16/16 [History] Lisinopril [Prinivil] 20 mg PO DAILY #30 tablet 11/26/16 [Rx] Hydrochlorothiazide 25 mg PO DAILY 02/11/17 [History] Nebivolol [Bystolic] 10 mg PO DAILY 02/11/17 [History] traMADol [Ultram] 50 mg PO Q12H PRN 02/11/17 [History] Past Medical History HEENT History: Reports: Otitis Media, Other (See Below) Other HEENT History: bacterial conjunctivitis, otitis media, wears glasses Cardiovascular History: Reports: Hypertension Respiratory History: Reports: Sleep Apnea, Other (See Below) Other Respiratory History: snoring, use of CPAP Gastrointestinal History: 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, GERD Other Gastrointestinal History: Umbilical hernia Genitourinary History: Reports: Other (See Below) Other Genitourinary History: urethral stricture [employer]LECT[employer] HEL[employer] History: 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 Musculoskeletal History: Reports: Arthritis, Osteoporosis, Other (See Below) Other Musculoskeletal History: bilateral degenerative arthritis of bilateral knees, R knee mass Neurological History: Reports: Migraines Psychiatric History: 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 Endocrine/Metabolic History: Reports: Obesity/BMI 30+ Hematologic History: 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 Immunologic History: 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 Oncologic (Cancer) History: 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 Other Oncologic History: To left lower eye Dermatologic History: 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 Other Dermatologic History: CUrrently admitted for cellulitis too Right lower knee/retibial area - Infectious Disease History Infectious Disease History: Reports: Chicken Pox, Measles, Mumps, Shingles - Past Surgical History Head Surgeries/Procedures: 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 HEENT Surgical History: 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 Cardiovascular Surgical History: 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 Respiratory Surgical History: 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 GI Surgical History: 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 Male Surgical History: Reports: Other (See Below) Other Male Surgeries/Procedures: Urethral dilitation. Resolved the problems. R/T to the spinal done with the RTKA, decreased ability to urinate, causing the stricture Endocrine Surgical History: 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 Neurological Surgical History: 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 Musculoskeletal Surgical History: Reports: Arthroscopic Knee, Knee Replacement, Other (See Below) Other Musculoskeletal Surgeries/Procedures:: right knee replacement, begnin cyst removed from medial aspect of right knee. Oncologic Surgical History: 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 Dermatological Surgical History: 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 - Past Imaging History Past Imaging History: 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 Social & Family History - Family History Family Medical History: Noncontributory - Tobacco Use Smoking Status *Q: Never Smoker Second Hand Smoke Exposure: No - Caffeine Use Caffeine Use: Reports: Soda - Alcohol Use Days Per Week of Alcohol Use: 1 Number of Drinks Per Day: 3 Total Drinks Per Week: 3 - Recreational Drug Use Recreational Drug Use: No H&P Review of Systems - Review of Systems: Review Of Systems: See Below General: Reports: No Symptoms HEENT: Reports: No Symptoms Pulmonary: Reports: No Symptoms. Denies: Shortness of Breath, Wheezing, Pleuritic Chest Pain, Cough Cardiovascular: Reports: No Symptoms. Denies: Chest Pain, Palpitations Gastrointestinal: Reports: No Symptoms. Denies: Abdominal Pain Genitourinary: Reports: No Symptoms, Retention (history of postoperative urinary retention in the past). Denies: Dysuria, Frequency, Burning, Pain, Incontinence, Hematuria Musculoskeletal: Reports: Leg Pain (mild left knee pain starting) Neurological: Reports: No Symptoms Hematologic/Lymphatic: Reports: No Symptoms Exam - Exam Exam: See Below - Vital Signs Vital Signs: Last Vital Signs Temp 98.0 F 02/15/17 12:08 Pulse 99 02/15/17 12:02 Resp 18 02/15/17 12:08 BP 136/73 02/15/17 12:02 Pulse Ox 91 L 02/15/17 12:02 Weight: 343 lb - Exam Quality Assessment: Urinary Catheter General: Alert, Oriented, Cooperative HEENT: Conjunctiva Clear, EOMI, Hearing Intact, Mucosa Moist & [place], Pupils Equal Neck: Supple, Trachea Midline Lungs: Clear to Auscultation, Normal Respiratory Effort, Decreased Breath Sounds (bases) Cardiovascular: Regular Rate, Regular Rhythm GI/Abdominal Exam: Normal Bowel Sounds, Soft, Non-Tender, No Organomegaly, Other (round/obese) (Male) Exam: Deferred Rectal (Males) Exam: Deferred Extremities: Other (left leg wrapped with beckie wrap to toes. Wiggles toes, CMS + to lt LE distally) Peripheral Pulses: 2+: Posterior Tibial (R), Dorsalis Pedis (R) Skin: Warm, Dry Neurological: Cranial Nerves Intact Neuro Extensive - Mental Status: Alert, Oriented x3, Normal Mood/Affect, Normal Cognition, Memory Intact Psychiatric: Alert, Normal Affect, Normal Mood - Patient Data Lab Results Last 24 hrs: Laboratory Results - last 24 hr 02/15/17 Range/Units 09:50 WBC 9.20 H (4.23-9.07) K/mm3 RBC 4.37 L (4.63-6.08) M/mm3 Hgb 12.2 L (13.7-17.5) gm/L Hct 37.9 L (40.1-51.0) % MCV 86.7 (79.0-92.2) fl MCH 27.9 (25.7-32.2) pg MCHC 32.2 (32.2-35.5) g/dl RDW Std Deviation 50.3 H (35.1-43.9) fL Plt Count 213 (163-337) K/mm3 MPV 8.9 L (9.4-12.3) fl Neut % (Auto) 72.7 H (34.0-67.9) % Lymph % (Auto) 17.3 L (21.8-53.1) % [place] % (Auto) 7.3 (5.3-12.2) % Eos % (Auto) 2.3 (0.8-7.0) Baso % (Auto) 0.2 (0.1-1.2) % Neut # (Auto) 6.69 H (1.78-5.38) K/mm3 Lymph # (Auto) 1.59 (1.32-3.57) K/mm3 [place] # (Auto) 0.67 (0.30-0.82) K/mm3 Eos # (Auto) 0.21 (0.04-0.54) K/mm3 Baso # (Auto) 0.02 (0.01-0.08) K/mm3 Result Diagrams: 02/15/17 09:50 Consult PN Assessment/Plan POD#: 0 Procedures: Procedures ASSAY OF FERRITIN (01/26/17) ASSAY OF PREALBUMIN (01/26/17) ASSAY OF PROTEIN OTHER (02/28/16) ASSAY OF SERUM ALBUMIN (01/26/17) BLOOD CULTURE FOR BACTERIA (11/21/16) BODY FLUID CELL COUNT (02/28/16) C-REACTIVE PROTEIN (02/08/17) CHEST X-RAY 2VW FRONTAL&LATL (09/04/16) COMPLETE CBC W/AUTO DIFF WBC (02/08/17) COMPREHEN METABOLIC PANEL (11/21/16) CULTR BACTERIA EXCEPT BLOOD (09/17/16) CULTURE OTHR SPECIMN AEROBIC (02/25/16) DRAIN/INJ JOINT/BURSA W/O US (02/25/16) EMERGENCY DEPT VISIT (11/21/16) EMERGENCY DEPT VISIT (02/25/16) EXAM SYNOVIAL FLUID CRYSTALS (02/28/16) EXC THIGH/KNEE LES SC 3 CM/> (09/17/16) EXTREMITY STUDY (02/25/16) FUNGUS ISOLATION CULTURE (02/28/16) GLUCOSE OTHER FLUID (02/28/16) LIPID PANEL (11/16/14) METABOLIC PANEL TOTAL CA (01/26/17) MR-STAPH DNA AMP PROBE (09/17/16) MRI JNT OF LWR EXTRE W/O DYE (08/18/16) POLYSOM 6/>YRS CPAP 4/> PARM (11/25/15) PROTHROMBIN TIME (01/26/17) RBC SED RATE AUTOMATED (02/25/16) ROUTINE VENIPUNCTURE (11/21/16) SMEAR GRAM STAIN (09/17/16) THROMBOPLASTIN TIME PARTIAL (01/26/17) TISSUE EXAM BY PATHOLOGIST (09/17/16) VITAMIN D 25 HYDROXY (01/26/17) X-RAY EXAM OF KNEE 1 OR 2 (12/02/15) X-RAY EXAM OF KNEE 3 (02/25/16) (1) S/P total knee arthroplasty SNOMED Code(s): 7688789643290, 577311953, 9862465729610 Code(s): Z96.659 - PRESENCE OF UNSPECIFIED ARTIFICIAL KNEE JOINT Priority: High Current Visit: Yes Qualifiers: Laterality: left Qualified Code(s): Z96.652 - Presence of left artificial knee joint (2) Osteoarthritis SNOMED Code(s): 380717570 Code(s): M19.90 - UNSPECIFIED OSTEOARTHRITIS, UNSPECIFIED SITE Priority: High Current Visit: Yes Qualifiers: Osteoarthritis location: knee Osteoarthritis type: primary Laterality: left Qualified Code(s): M17.12 - Unilateral primary osteoarthritis, left knee (3) Urinary retention SNOMED Code(s): 854696707 Code(s): R33.9 - RETENTION OF URINE, UNSPECIFIED Priority: Medium Current Visit: Yes (4) HTN (hypertension) SNOMED Code(s): 05519628 Code(s): I10 - ESSENTIAL (PRIMARY) HYPERTENSION Priority: Medium Current Visit: No Qualifiers: Hypertension type: essential hypertension (5) MORENA (obstructive sleep apnea) SNOMED Code(s): 93545590 Code(s): G47.33 - OBSTRUCTIVE SLEEP APNEA (ADULT) (PEDIATRIC) Priority: Medium Current Visit: No (6) Obesity SNOMED Code(s): 209193441 Code(s): E66.9 - OBESITY, UNSPECIFIED Priority: Medium Current Visit: No Qualifiers: Obesity classification: adult class 3 (BMI >= 40) Problem List Initiated/Reviewed/Updated: Yes Plan: I/P: Osteoarthritis- S/P Lt TKA with Dr. 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 Requesting Provider: Dr. Hargrove Date Consult Requested: 02/15/17 Reason for Consult: Postoperative Medical Management Patient History Reviewed: Yes Time Spent (in minutes): 45
[2017-02-15] MEDS: ceFAZolin 1 GM in Premix Bag 1 BAG IV SCH ×2 (14:23→23:16)
[2017-02-15] MEDS: ceFAZolin 2 GM in Premix Bag 1 BAG IV SCH ×2 (15:01→22:31)
[2017-02-15] MEDS: Morphine 2 MG/ML Syringe IVPUSH PRN (22:42)
[2017-02-16] MEDS: Acetaminophen/oxyCODONE 325-5 MG Tab PO PRN ×4 (00:14→13:08)
[2017-02-16] MEDS: Morphine 2 MG/ML Syringe IVPUSH PRN (01:50)
[2017-02-16] MEDS: ceFAZolin 2 GM in Premix Bag 1 BAG IV SCH (06:27)
[2017-02-16] MEDS: Famotidine 20 MG Tab PO SCH (06:27)
[2017-02-16] MEDS: Docusate Sodium 100 MG Cap PO PRN (06:27)
--- NOTE | 2017-02-16 06:33 | PCM.CONSN ---
- General Info Date of Service: 02/16/17 Admission Dx/Problem (Free Text): Admission Diagnosis/Problem Admission Diagnosis/Problem Arthritis of left knee POD #1 S/p Lt TKA with Dr. Hargrove. Doing well, pain controlled. Eating without nausea. Voiding. Working with PT. Functional Status: Reports: Pain Controlled, Tolerating Diet, Ambulating, Urinating, Incentive Spirometry. Denies: New Symptoms - Review of Systems General: Reports: No Symptoms HEENT: Reports: No Symptoms Pulmonary: Reports: No Symptoms Cardiovascular: Reports: No Symptoms Gastrointestinal: Reports: No Symptoms Genitourinary: Reports: No Symptoms Musculoskeletal: Reports: Leg Pain Skin: Reports: No Symptoms Neurological: Reports: No Symptoms Psychiatric: Reports: No Symptoms - Patient Data Vitals - Most Recent: Last Vital Signs Temp 98.2 F 02/16/17 04:13 Pulse 81 02/16/17 04:13 Resp 18 02/16/17 04:13 BP 134/68 02/16/17 04:13 Pulse Ox 94 L 02/16/17 05:00 Weight - Most Recent: 343 lb I&O - Last 24 Hours: Intake & Output 02/15/17 02/15/17 02/16/17 14:59 22:59 06:59 Intake Total 785 1040 1360 Output Total 90 1420 300 Balance 695 -380 1060 Lab Results Last 24 Hours: Laboratory Results - last 24 hr 02/15/17 Range/Units 09:50 WBC 9.20 H (4.23-9.07) K/mm3 RBC 4.37 L (4.63-6.08) M/mm3 Hgb 12.2 L (13.7-17.5) gm/L Hct 37.9 L (40.1-51.0) % MCV 86.7 (79.0-92.2) fl MCH 27.9 (25.7-32.2) pg MCHC 32.2 (32.2-35.5) g/dl RDW Std Deviation 50.3 H (35.1-43.9) fL Plt Count 213 (163-337) K/mm3 MPV 8.9 L (9.4-12.3) fl Neut % (Auto) 72.7 H (34.0-67.9) % Lymph % (Auto) 17.3 L (21.8-53.1) % [place] % (Auto) 7.3 (5.3-12.2) % Eos % (Auto) 2.3 (0.8-7.0) Baso % (Auto) 0.2 (0.1-1.2) % Neut # (Auto) 6.69 H (1.78-5.38) K/mm3 Lymph # (Auto) 1.59 (1.32-3.57) K/mm3 [place] # (Auto) 0.67 (0.30-0.82) K/mm3 Eos # (Auto) 0.21 (0.04-0.54) K/mm3 Baso # (Auto) 0.02 (0.01-0.08) K/mm3 Med Orders - Current: Current Medications Amlodipine Besylate (Norvasc) 10 mg PO DAILY [facility] Aspirin (Ecotrin) 325 mg PO BID [facility] Bisacodyl (Dulcolax) 5 mg PO DAILY PRN PRN Reason: Constipation Carvedilol (Coreg) 6.25 mg PO DAILY [facility] Diphenhydramine HCl (Benadryl) 25 mg IVPUSH Q4H PRN PRN Reason: Nausea Docusate Sodium (Colace) 100 mg PO BID PRN PRN Reason: Constipation Last Admin: 02/16/17 06:27 Dose: 100 mg Famotidine (Pepcid) 20 mg PO Q12H [facility] Last Admin: 02/16/17 06:27 Dose: 20 mg Hydrochlorothiazide (Hydrochlorothiazide) 25 mg PO DAILY [facility] Last Admin: 02/15/17 11:17 Dose: 25 mg Lactated Ringer's (Ringers, Lactated) 1,000 mls @ 125 mls/hr IV ASDIRECTED [facility] Last Admin: 02/15/17 11:33 Dose: 125 mls/hr Cefazolin Sodium/Dextrose 2 gm (/ Premix) 50 mls @ 100 mls/hr IV Q8H [facility] Stop: 02/16/17 06:59 Last Admin: 02/16/17 06:27 Dose: 100 mls/hr Cefazolin Sodium/Dextrose 1 gm (/ Premix) 50 mls @ 100 mls/hr IV Q8H [facility] Stop: 02/16/17 06:59 Last Admin: 02/15/17 23:16 Dose: 100 mls/hr Lidocaine/Sodium Bicarbonate (Buffered Lidocaine 1% In Ns 8.4%) 0.25 ml IV ONETIME PRN PRN Reason: Prior to IV Start Last Admin: 02/15/17 06:29 Dose: 0.25 ml Lisinopril (Prinivil) 20 mg PO DAILY [facility] Magnesium Hydroxide (Milk Of Magnesia) 30 ml PO BID PRN PRN Reason: Constipation Morphine Sulfate (Morphine) 2 mg IVPUSH Q2H PRN PRN Reason: Breakthrough Pain Last Admin: 02/16/17 01:50 Dose: 2 mg Ondansetron HCl (Zofran) 4 mg IVPUSH Q6H PRN PRN Reason: Nausea/Vomiting Oxycodone/Acetaminophen (Percocet 325-5 Mg) 2 tab PO Q4H PRN PRN Reason: Pain Last Admin: 02/16/17 04:10 Dose: 2 tab Senna (Senna) 8.6 mg PO BID PRN PRN Reason: Constipation Sodium Chloride (Saline Flush) 10 ml FLUSH ASDIRECTED PRN PRN Reason: Keep Vein Open [facility] Last Admin: 02/15/17 18:06 Dose: 0.4 mg Discontinued Medications Amlodipine Besylate (Norvasc) 10 mg PO DAILY [facility] Last Admin: 02/15/17 20:09 Dose: Not Given Bupivacaine HCl (Marcaine 0.25%) Confirm Administered Dose 30 ml .ROUTE .STK- MED ONE Stop: 02/15/17 06:14 Last Admin: 02/15/17 08:59 Dose: 30 ml Carvedilol (Coreg) 6.25 mg PO BID [facility] Carvedilol (Coreg) 6.25 mg PO ONETIME ONE Stop: 02/15/17 07:15 Last Admin: 02/15/17 07:15 Dose: 6.25 mg Cefazolin Sodium (Ancef) Confirm Administered Dose 2 gm .ROUTE .STK-MED ONE Stop: 02/15/17 06:13 Last Admin: 02/15/17 08:46 Dose: 2 gm Cefazolin Sodium (Ancef) Confirm Administered Dose 3 gm .ROUTE .STK-MED ONE Stop: 02/15/17 06:59 Morphine Sulfate 8 mg/Epinephrine HCl 0.3 mg/Cefuroxime Sodium 750 mg/Ketorolac Tromethamine 30 mg/Sodium Chloride 17 ml 0 mg .XX ONETIME ONE Stop: 02/15/17 08:46 Last Admin: 02/15/17 20:07 Dose: Not Given Fentanyl (Sublimaze) 50 mcg IVPUSH Q5M PRN PRN Reason: Pain Stop: 02/15/17 10:56 Cefazolin Sodium/Dextrose (Ancef) 50 mls @ 100 mls/hr IV Q8H [facility] Last Admin: 02/15/17 11:05 Dose: Not Given Lidocaine HCl (Xylocaine-Mpf 1%) Confirm Administered Dose 4 mls @ as directed .ROUTE .STK-MED ONE Stop: 02/15/17 07:41 Iodine (Iodine 2% Mild Tincture) Confirm Administered Dose 30 ml .ROUTE .STK- MED ONE Stop: 02/15/17 06:14 Last Admin: 02/15/17 08:42 Dose: 30 ml Midazolam HCl (Versed 1 Mg/Ml) Confirm Administered Dose 2 mg .ROUTE .STK-MED ONE Stop: 02/15/17 07:00 Midazolam HCl (Versed 1 Mg/Ml) Confirm Administered Dose 2 mg .ROUTE .STK-MED ONE Stop: 02/15/17 08:52 Morphine Sulfate (Duramorph Pf) Confirm Administered Dose 10 mg .ROUTE .STK-MED ONE Stop: 02/15/17 06:58 Naloxone HCl (Narcan) 0.1 mg IVPUSH Q5M PRN PRN Reason: Oversedation Stop: 02/15/17 07:01 Non-Formulary Medication (Tadalafil [Cialis]) 10 mg PO ASDIRECTED PRN PRN Reason: erectile dysfuction Propofol (Diprivan 20 Ml) Confirm Administered Dose 200 mg .ROUTE .STK-MED ONE Stop: 02/15/17 07:39 Propofol (Diprivan 20 Ml) Confirm Administered Dose 200 mg .ROUTE .STK-MED ONE Stop: 02/15/17 07:49 Propofol (Diprivan 20 Ml) Confirm Administered Dose 200 mg .ROUTE .STK-MED ONE Stop: 02/15/17 08:26 Tranexamic Acid (Cyklokapron) Confirm Administered Dose 1,000 mg .ROUTE .STK- MED ONE Stop: 02/15/17 06:13 Last Admin: 02/15/17 09:00 Dose: 1,000 mg - Exam Quality Assessment: DVT Prophylaxis General: Alert, Oriented, Cooperative, No Acute Distress HEENT: Pupils Equal, Pupils Reactive, EOMI, Mucous Membr. Moist/[place] Neck: Supple Lungs: Clear to Auscultation, Normal Respiratory Effort, Decreased Breath Sounds (bases) Cardiovascular: Regular Rate, Regular Rhythm GI/Abdominal Exam: Normal Bowel Sounds, Soft, Non-Tender, No Organomegaly (Male) Exam: Deferred Extremities: Other (SCD's/teds) Peripheral Pulses: 1+: Dorsalis Pedis (L), Dorsalis Pedis (R) Neurological: No New Focal Deficit Psy/Mental Status: Alert, Normal Affect, Normal Mood Consult PN Assessment/Plan Procedures: Procedures ASSAY OF FERRITIN (01/26/17) ASSAY OF PREALBUMIN (01/26/17) ASSAY OF PROTEIN OTHER (02/28/16) ASSAY OF SERUM ALBUMIN (01/26/17) BLOOD CULTURE FOR BACTERIA (11/21/16) BODY FLUID CELL COUNT (02/28/16) C-REACTIVE PROTEIN (02/08/17) CHEST X-RAY 2VW FRONTAL&LATL (09/04/16) COMPLETE CBC W/AUTO DIFF WBC (02/08/17) COMPREHEN METABOLIC PANEL (11/21/16) CULTR BACTERIA EXCEPT BLOOD (09/17/16) CULTURE OTHR SPECIMN AEROBIC (02/25/16) DRAIN/INJ JOINT/BURSA W/O US (02/25/16) EMERGENCY DEPT VISIT (11/21/16) EMERGENCY DEPT VISIT (02/25/16) EXAM SYNOVIAL FLUID CRYSTALS (02/28/16) EXC THIGH/KNEE LES SC 3 CM/> (09/17/16) EXTREMITY STUDY (02/25/16) FUNGUS ISOLATION CULTURE (02/28/16) GLUCOSE OTHER FLUID (02/28/16) LIPID PANEL (11/16/14) METABOLIC PANEL TOTAL CA (01/26/17) MR-STAPH DNA AMP PROBE (09/17/16) MRI JNT OF LWR EXTRE W/O DYE (08/18/16) POLYSOM 6/>YRS CPAP 4/> PARM (11/25/15) PROTHROMBIN TIME (01/26/17) RBC SED RATE AUTOMATED (02/25/16) ROUTINE VENIPUNCTURE (11/21/16) SMEAR GRAM STAIN (09/17/16) THROMBOPLASTIN TIME PARTIAL (01/26/17) TISSUE EXAM BY PATHOLOGIST (09/17/16) VITAMIN D 25 HYDROXY (01/26/17) X-RAY EXAM OF KNEE 1 OR 2 (12/02/15) X-RAY EXAM OF KNEE 3 (02/25/16) (1) S/P total knee arthroplasty SNOMED Code(s): 1626769043177, 792738939, 2045768842397 Code(s): Z96.659 - PRESENCE OF UNSPECIFIED ARTIFICIAL KNEE JOINT Priority: High Current Visit: Yes Qualifiers: Laterality: left Qualified Code(s): Z96.652 - Presence of left artificial knee joint (2) Osteoarthritis SNOMED Code(s): 315461950 Code(s): M19.90 - UNSPECIFIED OSTEOARTHRITIS, UNSPECIFIED SITE Priority: High Current Visit: Yes Qualifiers: Osteoarthritis location: knee Osteoarthritis type: primary Laterality: left Qualified Code(s): M17.12 - Unilateral primary osteoarthritis, left knee (3) Urinary retention SNOMED Code(s): 544234553 Code(s): R33.9 - RETENTION OF URINE, UNSPECIFIED Priority: Medium Current Visit: Yes (4) HTN (hypertension) SNOMED Code(s): 67425927 Code(s): I10 - ESSENTIAL (PRIMARY) HYPERTENSION Priority: Medium Current Visit: No Qualifiers: Hypertension type: essential hypertension Qualified Code(s): I10 - Essential (primary) hypertension (5) MORENA (obstructive sleep apnea) SNOMED Code(s): 85152568 Code(s): G47.33 - OBSTRUCTIVE SLEEP APNEA (ADULT) (PEDIATRIC) Priority: Medium Current Visit: No (6) Obesity SNOMED Code(s): 236057275 Code(s): E66.9 - OBESITY, UNSPECIFIED Priority: Medium Current Visit: No Qualifiers: Obesity classification: adult class 3 (BMI >= 40) Problem List Initiated/Reviewed/Updated: Yes Plan: I/P: Osteoarthritis- S/P Lt TKA with Dr. 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 Patient is Full Code status.
[2017-02-16] MEDS: ceFAZolin 1 GM in Premix Bag 1 BAG IV SCH (07:05)
[2017-02-16] MEDS: Tamsulosin 0.4 MG Cap.ER PO SCH (08:18)
[2017-02-16] MEDS: Hydrochlorothiazide 25 MG Tab PO SCH (08:19)
[2017-02-16] MEDS ORDERED: Cyclobenzaprine 10 MG Tab PO PRN (08:55)
[2017-02-16] MEDS ORDERED: Carvedilol 6.25 MG Tab PO SCH (09:00)
[2017-02-16] MEDS ORDERED: amLODIPine 10 MG Tab PO SCH (09:00)
[2017-02-16] MEDS ORDERED: Aspirin 325 MG Tab.EC PO SCH (09:00)
[2017-02-16] MEDS ORDERED: Lisinopril 20 MG Tab PO SCH (09:00)
--- NOTE | 2017-02-16 09:45 | PCM48HPAN ---
Post Anesthesia Note - EVALUATION WITHIN 48HRS OF ANESTHETIC Vital Signs in Normal Range: Yes Patient Participated in Evaluation: Yes Respiratory Function Stable: Yes Airway Patent: Yes Cardiovascular Function Stable: Yes Hydration Status Stable: Yes Pain Control Satisfactory: Yes (he needed 2 doses of 2 mg morpine during the night) Nausea and Vomiting Control Satisfactory: Yes Mental Status Recovered: Yes - COMMENTS/OBSERVATIONS Free Text/Narrative:: Pt reports doing well. satisfied with anesthesia care. up ambulating with full resolution of spinal. no headache, f/c, n/v. up to bathroom and using restroom without difficulty. taking p.o.
[2017-02-16 13:43] VITALS: BP 143/77
--- NOTE | 2017-02-18 22:44 | PCM.OPNOTE ---
- General Post-Op/Procedure Note Date of Surgery/Procedure: 02/15/17 Operative Procedure(s): left total knee arthroplasty Pre Op Diagnosis: left knee osteoarthrosis Post-Op Diagnosis: Same Anesthesia Technique: Local, MAC, Spinal Primary Surgeon: Bharat Hargrove Anesthesia Provider: Juan Miguel Godinez Inpatient Pharmacist: Jennifer Guardado EBL in mLs: 510 Complications: None Condition: Good
--- NOTE | 2017-02-18 23:43 | OR ---
DATE OF OPERATION: 02/15/2017 SURGEON: Bharat Hargrove MD OPERATION PERFORMED: Left total knee arthroplasty. PREOPERATIVE DIAGNOSIS: Left knee osteoarthrosis. POSTOPERATIVE DIAGNOSIS: Left knee osteoarthrosis. ANESTHESIA: Local MAC with spinal. ANESTHESIA PROVIDER: Juan Miguel Godinez MD. [employer]: Jennifer Guardado LPN. ESTIMATED BLOOD LOSS: 510 mL COMPLICATIONS: None. CONDITION: Stable. IMPLANTS: 1. [place] size 8 PS femur. 2. [place] size 7 [place] tibial baseplate. 3. [place] size 7, 9-mm PS X3 polyethylene. 4. 35 x 10 mm patella. DESCRIPTION OF PROCEDURE: The patient was identified in the preop holding area. Proper site was marked and identified by the surgeon. The patient was taken back to the operating theater. After adequate anesthesia, the patient's left lower extremity had a nonsterile tourniquet applied and it was then sterilely prepped and draped in the usual sterile fashion. OR timeout was performed. The patient received 2 g IV Ancef. At this time, left lower extremity was exsanguinated. Tourniquet was insufflated to 300 mmHg. Standard medial parapatellar incision was made. Medial parapatellar arthrotomy was created. Deep fibers of the MCL were raised and anterior fat pad was resected. At this time, attention was turned to the patella. Patella measured 26, it was resected to a 16 for a 35 x 10 mm patella. Drill holes were then drilled and found to be in adequate position. The drill was then drilled in the distal femur and the intramedullary distal femoral cutting guide was then placed. 8 mm was resected off the distal femur and was found to be an adequate resection. Sizing guide was placed. It was found to be a size 8 PS femur that was shown on the implant record at the beginning of this dictation. The drill holes were drilled for the epicondylar axis using [place] line and epicondyles as reference. At this time, the 4-in-1 cutting block was placed. An anterior posterior and anterior and posterior chamfer cuts were then completed. The correct size box cut was then placed and the box cut was completed and found to be an adequate resection. Attention was turned to the tibia. The posterior medial lateral retractors were placed. The extramedullary tibial guide was placed. It was placed in the old footprint of the ACL. It was aligned with the center of the ankle and 0 degrees of slope, 9 mm was then resected off the unaffected lateral side. There was found to be an acceptable reduction. At this time, posterior osteophytes were removed along with medial and lateral meniscus. A trial implant was placed with a correct sized tibia that was mentioned at the beginning of the dictation. A 9-mm trial spacer was placed and a 9-mm PS X3 polyethylene was then placed. The patient's knee was brought through range of motion. The patella was tracking centrally and was stable to varus and valgus stress. Alignment was found to be roughly at 0 degrees. At this time, cement was mixed on the back table. The tibia was stamped and drilled in proper rotation. All cut surfaces were irrigated with pulse lavage irrigation with Ancef and then completely dried. Once this was completed, then the cement was ready. The universal tibial base plate was cemented in place. Next, the 8 PS femur cemented into place and the 9-mm PS X3 polyethylene was placed. The patient's knee was brought into full extension. Excess cement was removed. The patella was then cemented in place at this time. Tourniquet was deflated. One liter dilute Betadine solution was irrigated through the knee along with 3 L of pulse lavage irrigation with Ancef. Periarticular injection was then completed. The patient's knee was brought through a range of motion. Once the cement had time to set up and it was found to be stable to varus valgus stress, the patella was tracking centrally with full range of motion. At this time, a #2 barbed suture was used for closure of the medial parapatellar arthrotomy. Topical tranexamic acid was placed. 2-0 Vicryl was used subcutaneously, a running 3-0 Monocryl was used subcuticularly. The patient tolerated the procedure well and was sent to the PACU in stable condition. EVITA /[id number]
--- NOTE | 2017-02-22 10:48 | PCM.SURGPN ---
- General Info Date of Service: 02/16/17 POD#: 1 Functional Status: Reports: Pain Controlled, Tolerating Diet, Ambulating, Urinating - Review of Systems Musculoskeletal: Reports: Other (The pt has progressed well with therapies.) - Patient Data Vitals - Most Recent: Last Vital Signs Temp 97.9 F 02/16/17 13:12 Pulse 97 02/16/17 13:12 Resp 18 02/16/17 13:12 BP 143/77 H 02/16/17 13:12 Pulse Ox 93 L 02/16/17 13:12 Weight - Most Recent: 343 lb Med Orders - Current: Current Medications Discontinued Medications Amlodipine Besylate (Norvasc) 10 mg PO DAILY [facility] Last Admin: 02/15/17 20:09 Dose: Not Given Amlodipine Besylate (Norvasc) 10 mg PO DAILY [facility] Last Admin: 02/16/17 08:26 Dose: 10 mg Aspirin (Ecotrin) 325 mg PO BID [facility] Last Admin: 02/16/17 08:19 Dose: 325 mg Bisacodyl (Dulcolax) 5 mg PO DAILY PRN PRN Reason: Constipation Bupivacaine HCl (Marcaine 0.25%) Confirm Administered Dose 30 ml .ROUTE .STK- MED ONE Stop: 02/15/17 06:14 Last Admin: 02/15/17 08:59 Dose: 30 ml Carvedilol (Coreg) 6.25 mg PO BID [facility] Carvedilol (Coreg) 6.25 mg PO ONETIME ONE Stop: 02/15/17 07:15 Last Admin: 02/15/17 07:15 Dose: 6.25 mg Carvedilol (Coreg) 6.25 mg PO DAILY [facility] Last Admin: 02/16/17 08:20 Dose: 6.25 mg Cefazolin Sodium (Ancef) Confirm Administered Dose 2 gm .ROUTE .STK-MED ONE Stop: 02/15/17 06:13 Last Admin: 02/15/17 08:46 Dose: 2 gm Cefazolin Sodium (Ancef) Confirm Administered Dose 3 gm .ROUTE .STK-MED ONE Stop: 02/15/17 06:59 Morphine Sulfate 8 mg/Epinephrine HCl 0.3 mg/Cefuroxime Sodium 750 mg/Ketorolac Tromethamine 30 mg/Sodium Chloride 17 ml 0 mg .XX ONETIME ONE Stop: 02/15/17 08:46 Last Admin: 02/15/17 20:07 Dose: Not Given Cyclobenzaprine HCl (Flexeril) 10 mg PO TID PRN PRN Reason: Muscle Spasm Last Admin: 02/16/17 09:49 Dose: 10 mg Diphenhydramine HCl (Benadryl) 25 mg IVPUSH Q4H PRN PRN Reason: Nausea Docusate Sodium (Colace) 100 mg PO BID PRN PRN Reason: Constipation Last Admin: 02/16/17 06:27 Dose: 100 mg Famotidine (Pepcid) 20 mg PO Q12H [facility] Last Admin: 02/16/17 06:27 Dose: 20 mg Fentanyl (Sublimaze) 50 mcg IVPUSH Q5M PRN PRN Reason: Pain Stop: 02/15/17 10:56 Hydrochlorothiazide (Hydrochlorothiazide) 25 mg PO DAILY [facility] Last Admin: 02/16/17 08:19 Dose: 25 mg Lactated Ringer's (Ringers, Lactated) 1,000 mls @ 125 mls/hr IV ASDIRECTED [facility] Last Admin: 02/15/17 11:33 Dose: 125 mls/hr Cefazolin Sodium/Dextrose (Ancef) 50 mls @ 100 mls/hr IV Q8H [facility] Last Admin: 02/15/17 11:05 Dose: Not Given Lidocaine HCl (Xylocaine-Mpf 1%) Confirm Administered Dose 4 mls @ as directed .ROUTE .STK-MED ONE Stop: 02/15/17 07:41 Cefazolin Sodium/Dextrose 2 gm (/ Premix) 50 mls @ 100 mls/hr IV Q8H [facility] Stop: 02/16/17 06:59 Last Admin: 02/16/17 06:27 Dose: 100 mls/hr Cefazolin Sodium/Dextrose 1 gm (/ Premix) 50 mls @ 100 mls/hr IV Q8H [facility] Stop: 02/16/17 06:59 Last Admin: 02/16/17 07:05 Dose: 100 mls/hr Iodine (Iodine 2% Mild Tincture) Confirm Administered Dose 30 ml .ROUTE .STK- MED ONE Stop: 02/15/17 06:14 Last Admin: 02/15/17 08:42 Dose: 30 ml Lidocaine/Sodium Bicarbonate (Buffered Lidocaine 1% In Ns 8.4%) 0.25 ml IV ONETIME PRN PRN Reason: Prior to IV Start Last Admin: 02/15/17 06:29 Dose: 0.25 ml Lisinopril (Prinivil) 20 mg PO DAILY [facility] Last Admin: 02/16/17 08:20 Dose: 20 mg Magnesium Hydroxide (Milk Of Magnesia) 30 ml PO BID PRN PRN Reason: Constipation Midazolam HCl (Versed 1 Mg/Ml) Confirm Administered Dose 2 mg .ROUTE .STK-MED ONE Stop: 02/15/17 07:00 Midazolam HCl (Versed 1 Mg/Ml) Confirm Administered Dose 2 mg .ROUTE .STK-MED ONE Stop: 02/15/17 08:52 Morphine Sulfate (Morphine) 2 mg IVPUSH Q2H PRN PRN Reason: Breakthrough Pain Last Admin: 02/16/17 01:50 Dose: 2 mg Morphine Sulfate (Duramorph Pf) Confirm Administered Dose 10 mg .ROUTE .STK-MED ONE Stop: 02/15/17 06:58 Naloxone HCl (Narcan) 0.1 mg IVPUSH Q5M PRN PRN Reason: Oversedation Stop: 02/15/17 07:01 Non-Formulary Medication (Tadalafil [Cialis]) 10 mg PO ASDIRECTED PRN PRN Reason: erectile dysfuction Ondansetron HCl (Zofran) 4 mg IVPUSH Q6H PRN PRN Reason: Nausea/Vomiting Oxycodone/Acetaminophen (Percocet 325-5 Mg) 2 tab PO Q4H PRN PRN Reason: Pain Last Admin: 02/16/17 13:08 Dose: 2 tab Propofol (Diprivan 20 Ml) Confirm Administered Dose 200 mg .ROUTE .STK-MED ONE Stop: 02/15/17 07:39 Propofol (Diprivan 20 Ml) Confirm Administered Dose 200 mg .ROUTE .STK-MED ONE Stop: 02/15/17 07:49 Propofol (Diprivan 20 Ml) Confirm Administered Dose 200 mg .ROUTE .STK-MED ONE Stop: 02/15/17 08:26 Senna (Senna) 8.6 mg PO BID PRN PRN Reason: Constipation Sodium Chloride (Saline Flush) 10 ml FLUSH ASDIRECTED PRN PRN Reason: Keep Vein Open Tamsulosin HCl (Flomax) 0.4 mg PO BIDPC [facility] Last Admin: 02/16/17 08:18 Dose: 0.4 mg Tranexamic Acid (Cyklokapron) Confirm Administered Dose 1,000 mg .ROUTE .STK- MED ONE Stop: 02/15/17 06:13 Last Admin: 02/15/17 09:05 Dose: 1,000 mg - Exam Wound/Incisions: Dressing Dry and Intact General: Alert, Cooperative, No Acute Distress Lungs: Normal Respiratory Effort Extremities: Other (NVS intact for BLE. Mich's negative BLE.) - Problem List Review Problem List Initiated/Reviewed/Updated: Yes - Assessment Assessment (Free Text/Narrative):: POD#1 - left TKA - Plan Plan (Free Text/Narrative):: 1. 325mg ASA BID. TEDs, frequent mobility. 2. Discharge to home today. 3. Hgb 11.0. Dr. Hargrove evaluated the pt today.
--- NOTE | 2017-02-22 10:49 | PCM.DCSUM1 ---
Discharge Summary - Hospital Course Brief History: Ascencion is a 61 yo male who underwent left TKA with Dr. Hargrove on 02-15-2017 . The procedure was completed under spinal anesthesia. The pt tolerated the procedure well and was admitted to the [facility] Unit under Medical- Surgical status. Medical management was provided by the Hospitalist service. The pt's Hospital course was uneventful. The pt's Hgb on POD#1 was 11.0. On POD#1, 325mg BID was initiated for VTE prophylaxis. SCDs and TEDs were also ordered. A Mepilex dressing was placed at the incision site at the time of surgery and remained clean and dry. The pt participated in P.T. and O.T. and progressed well. The pt was allowed to WBAT and used a FWW for mobility. On POD#1, the pt was deemed appropriate to discharge to home. - Discharge Data Discharge Date: 02/16/17 Discharge Disposition: Home, Self-Care 01 Condition: Good - Patient Summary/Data Operative Procedure(s) Performed: left total knee arthroplasty Consults: Consultations 02/15/17 06:45 Consult to Case Management [CONS] Routine Consult to Physician [CONS] Routine OT Evaluation and Treatment [CONS] Routine 02/15/17 06:50 PT Evaluation and Treatment [CONS] Routine - Discharge Plan Prescriptions/Med Rec: Acetaminophen/oxyCODONE [Percocet 325-5 MG] 2 tab PO Q4H PRN #60 tablet PRN Reason: Pain Aspirin [Ecotrin] 325 mg PO BID #84 tab.ec Cyclobenzaprine [Flexeril] 10 mg PO TID PRN #40 tablet PRN Reason: muscle spasms Tamsulosin [Flomax] 0.4 mg PO BIDPC #14 cap.er Home Medications: Home Meds Tadalafil [Cialis] 10 mg PO ASDIRECTED PRN 09/16/16 [History] amLODIPine [Norvasc] 10 mg PO DAILY 09/16/16 [History] Lisinopril [Prinivil] 20 mg PO DAILY #30 tablet 11/26/16 [Rx] Hydrochlorothiazide 25 mg PO DAILY 02/11/17 [History] Nebivolol [Bystolic] 10 mg PO DAILY 02/11/17 [History] Acetaminophen/oxyCODONE [Percocet 325-5 MG] 2 tab PO Q4H PRN #60 tablet [Rx] Aspirin [Ecotrin] 325 mg PO BID #84 tab.ec 02/16/17 [Rx] Cyclobenzaprine [Flexeril] 10 mg PO TID PRN #40 tablet 02/16/17 [Rx] Tamsulosin [Flomax] 0.4 mg PO BIDPC #14 cap.er 02/16/17 [Rx] Patient Handouts: Total Knee Replacement, Care After, Txid-dq-Qacy, Total Knee Replacement, Aepr-of-Yzyy, Knee Rehabilitation Guidelines Following Surgery - Patient Data Vitals - Most Recent: Last Vital Signs Temp 97.9 F 02/16/17 13:12 Pulse 97 02/16/17 13:12 Resp 18 02/16/17 13:12 BP 143/77 H 02/16/17 13:12 Pulse Ox 93 L 02/16/17 13:12 Weight - Most Recent: 343 lb Med Orders - Current: Current Medications Discontinued Medications Amlodipine Besylate (Norvasc) 10 mg PO DAILY [facility] BEDS AT [facility] Last Admin: 02/15/17 20:09 Dose: Not Given Amlodipine Besylate (Norvasc) 10 mg PO DAILY [facility] 234 BEDS AT [facility] Last Admin: 02/16/17 08:26 Dose: 10 mg Aspirin (Ecotrin) 325 mg PO BID [facility] 234 BEDS AT [facility] Last Admin: 02/16/17 08:19 Dose: 325 mg Bisacodyl (Dulcolax) 5 mg PO DAILY PRN PRN Reason: Constipation Bupivacaine HCl (Marcaine 0.25%) Confirm Administered Dose 30 ml .ROUTE .STK- MED ONE Stop: 02/15/17 06:14 Last Admin: 02/15/17 08:59 Dose: 30 ml Carvedilol (Coreg) 6.25 mg PO BID [facility] 234 BEDS AT [facility] Carvedilol (Coreg) 6.25 mg PO ONETIME ONE Stop: 02/15/17 07:15 Last Admin: 02/15/17 07:15 Dose: 6.25 mg Carvedilol (Coreg) 6.25 mg PO DAILY [facility] 234 BEDS AT [facility] Last Admin: 02/16/17 08:20 Dose: 6.25 mg Cefazolin Sodium (Ancef) Confirm Administered Dose 2 gm .ROUTE .STK-MED ONE Stop: 02/15/17 06:13 Last Admin: 02/15/17 08:46 Dose: 2 gm Cefazolin Sodium (Ancef) Confirm Administered Dose 3 gm .ROUTE .STK-MED ONE Stop: 02/15/17 06:59 Morphine Sulfate 8 mg/Epinephrine HCl 0.3 mg/Cefuroxime Sodium 750 mg/Ketorolac Tromethamine 30 mg/Sodium Chloride 17 ml 0 mg .XX ONETIME ONE Stop: 02/15/17 08:46 Last Admin: 02/15/17 20:07 Dose: Not Given Cyclobenzaprine HCl (Flexeril) 10 mg PO TID PRN PRN Reason: Muscle Spasm Last Admin: 02/16/17 09:49 Dose: 10 mg Diphenhydramine HCl (Benadryl) 25 mg IVPUSH Q4H PRN PRN Reason: Nausea Docusate Sodium (Colace) 100 mg PO BID PRN PRN Reason: Constipation Last Admin: 02/16/17 06:27 Dose: 100 mg Famotidine (Pepcid) 20 mg PO Q12H [facility] 234 BEDS AT [facility] Last Admin: 02/16/17 06:27 Dose: 20 mg Fentanyl (Sublimaze) 50 mcg IVPUSH Q5M PRN PRN Reason: Pain Stop: 02/15/17 10:56 Hydrochlorothiazide (Hydrochlorothiazide) 25 mg PO DAILY [facility] 234 B[facility]S [facility] Last Admin: 02/16/17 08:19 Dose: 25 mg Lactated Ringer's (Ringers, Lactated) 1,000 mls @ 125 mls/hr IV ASDIRECTED [facility]S INCLUDE 234 BEDS AT [facility] Last Admin: 02/15/17 11:33 Dose: 125 mls/hr Cefazolin Sodium/Dextrose (Ancef) 50 mls @ 100 mls/hr IV Q8H [facility] 234 BEDS AT [facility] Last Admin: 02/15/17 11:05 Dose: Not Given Lidocaine HCl (Xylocaine-Mpf 1%) Confirm Administered Dose 4 mls @ as directed .ROUTE .STK-MED ONE Stop: 02/15/17 07:41 Cefazolin Sodium/Dextrose 2 gm (/ Premix) 50 mls @ 100 mls/hr IV Q8H [facility] 234 BEDS AT [facility] Stop: 02/16/17 06:59 Last Admin: 02/16/17 06:27 Dose: 100 mls/hr Cefazolin Sodium/Dextrose 1 gm (/ Premix) 50 mls @ 100 mls/hr IV Q8H [facility]CLUDE 234 BEDS AT [facility] Stop: 02/16/17 06:59 Last Admin: 02/16/17 07:05 Dose: 100 mls/hr Iodine (Iodine 2% Mild Tincture) Confirm Administered Dose 30 ml .ROUTE .STK- MED ONE Stop: 02/15/17 06:14 Last Admin: 02/15/17 08:42 Dose: 30 ml Lidocaine/Sodium Bicarbonate (Buffered Lidocaine 1% In Ns 8.4%) 0.25 ml IV ONETIME PRN PRN Reason: Prior to IV Start Last Admin: 02/15/17 06:29 Dose: 0.25 ml Lisinopril (Prinivil) 20 mg PO DAILY [facility] Last Admin: 02/16/17 08:20 Dose: 20 mg Magnesium Hydroxide (Milk Of Magnesia) 30 ml PO BID PRN PRN Reason: Constipation Midazolam HCl (Versed 1 Mg/Ml) Confirm Administered Dose 2 mg .ROUTE .STK-MED ONE Stop: 02/15/17 07:00 Midazolam HCl (Versed 1 Mg/Ml) Confirm Administered Dose 2 mg .ROUTE .STK-MED ONE Stop: 02/15/17 08:52 Morphine Sulfate (Morphine) 2 mg IVPUSH Q2H PRN PRN Reason: Breakthrough Pain Last Admin: 02/16/17 01:50 Dose: 2 mg Morphine Sulfate (Duramorph Pf) Confirm Administered Dose 10 mg .ROUTE .STK-MED ONE Stop: 02/15/17 06:58 Naloxone HCl (Narcan) 0.1 mg IVPUSH Q5M PRN PRN Reason: Oversedation Stop: 02/15/17 07:01 Non-Formulary Medication (Tadalafil [Cialis]) 10 mg PO ASDIRECTED PRN PRN Reason: erectile dysfuction Ondansetron HCl (Zofran) 4 mg IVPUSH Q6H PRN PRN Reason: Nausea/Vomiting Oxycodone/Acetaminophen (Percocet 325-5 Mg) 2 tab PO Q4H PRN PRN Reason: Pain Last Admin: 02/16/17 13:08 Dose: 2 tab Propofol (Diprivan 20 Ml) Confirm Administered Dose 200 mg .ROUTE .STK-MED ONE Stop: 02/15/17 07:39 Propofol (Diprivan 20 Ml) Confirm Administered Dose 200 mg .ROUTE .STK-MED ONE Stop: 02/15/17 07:49 Propofol (Diprivan 20 Ml) Confirm Administered Dose 200 mg .ROUTE .STK-MED ONE Stop: 02/15/17 08:26 Senna (Senna) 8.6 mg PO BID PRN PRN Reason: Constipation Sodium Chloride (Saline Flush) 10 ml FLUSH ASDIRECTED PRN PRN Reason: Keep Vein Open [facility] Last Admin: 02/16/17 08:18 Dose: 0.4 mg Tranexamic Acid (Cyklokapron) Confirm Administered Dose 1,000 mg .ROUTE .STK- MED ONE Stop: 02/15/17 06:13 Last Admin: 02/15/17 09:05 Dose: 1,000 mg *Q Meaningful Use (DIS) - VTE *Q VTE Criteria *Q: - Stroke *Q Stroke Criteria *Q: - AMI *Q AMI Criteria *Q:
== END 2017-02-16 13:56 | disposition home or self-care (01) | DRG 302 ==
LOC: JD.OB 06:03
PROVIDERS: ADMIT Orthopaedic Surgery; ATTEND Orthopaedic Surgery
PROC: 0SRD0J9 Replacement of Left Knee Joint with Synthetic Substitute, Cemented, Open Approach (ICD-10-PCS; principal; 2017-02-15)
DX: M17.12 Unilateral primary osteoarthritis, left knee (principal); Z88.2 Allergy status to sulfonamides; Z88.1 Allergy status to other antibiotic agents; Z79.899 Other long term (current) drug therapy; I10 Essential (primary) hypertension; G47.33 Obstructive sleep apnea (adult) (pediatric); K21.9 Gastro-esophageal reflux disease without esophagitis; E66.9 Obesity, unspecified; Z68.41 Body mass index [BMI] 40.0-44.9, adult; Z96.651 Presence of right artificial knee joint; R33.9 Retention of urine, unspecified; R37 Sexual dysfunction, unspecified
CPT/HCPCS: 01402; 36415; 73560-26-LT; 73560-LT; 80053; 85025; 87641; 94762; 97110-GP; 97116-GP; 97161-GP; 97165-GO; 97535-GO; A9270-GY; C1713; C1776; J0171; J0690; J0697; J1885; J2250; J2270; J2704; J3490; J7120

== ENCOUNTER 2021-02-23 10:14 | Emergency (ER) | payer BC ==
[2021-02-23 10:46] VITALS: PULSE 86
[2021-02-23] MEDS ORDERED: Cyclobenzaprine 10 MG Tab PO ONE (11:00)
[2021-02-23] MEDS ORDERED: Acetaminophen/HYDROcodone 325-5 MG Tab PO ONE (11:00)
--- NOTE | 2021-02-23 11:49 | EDM.PDOC ---
ED HPI GENERAL MEDICAL PROBLEM - General Chief Complaint: Back Pain or Injury Stated Complaint: HIP PAIN Time Seen by Provider: 02/23/21 10:41 Source of Information: Reports: Patient History Limitations: Reports: No Limitations - History of Present Illness INITIAL COMMENTS - FREE TEXT/NARRATIVE: The patient presents with left hip and left leg pain. He said this has been going on for about a week. He said before that his low back was hurting. He went to the chiropractor and he helped with that but now his left hip and leg hurts. 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 He has no numbness or weakness and no bowel or bladder problems. Onset: Gradual Duration: Week(s): Location: Reports: Lower Extremity, Left (hip and left leg) Quality: Reports: Sharp Severity: Severe Improves with: Reports: Immobilization Worsens with: Reports: Movement Context: Denies: Trauma Associated Symptoms: Reports: No Other Symptoms Left Hip Pain Score (Numeric/FACES): 10 - Related Data Allergies Allergy/AdvReac Type Severity Reaction Status Date / Time erythromycin base Allergy Hives Verified 02/11/17 16:24 sulfamethoxazole Allergy Hives Verified 02/11/17 16:24 [From Bactrim] trimethoprim [From Bactrim] Allergy Hives Verified 02/11/17 16:24 Home Meds: Home Meds Tadalafil [Cialis] 10 mg PO ASDIRECTED PRN 09/16/16 [History] amLODIPine [Norvasc] 10 mg PO DAILY 09/16/16 [History] Lisinopril [Prinivil] 20 mg PO DAILY #30 tablet 11/26/16 [Rx] Hydrochlorothiazide 25 mg PO DAILY 02/11/17 [History] Nebivolol [Bystolic] 10 mg PO DAILY 02/11/17 [History] Acetaminophen/oxyCODONE [Percocet 325-5 MG] 2 tab PO Q4H PRN #60 tablet 02/16/17 [Rx] Aspirin [Ecotrin] 325 mg PO BID #84 tab.ec 02/16/17 [Rx] Cyclobenzaprine [Flexeril] 10 mg PO TID PRN #40 tablet 02/16/17 [Rx] Tamsulosin [Flomax] 0.4 mg PO BIDPC #14 cap.er 02/16/17 [Rx] Cyclobenzaprine [Flexeril] 10 mg PO TID PRN #20 tab 02/23/21 [Rx] Hydrocodone/Acetaminophen [Hydrocodone-Acetamin 5-325 mg] 1 - 2 each PO Q6H PRN #15 tablet 02/23/21 [Rx] Past Medical History HEENT History: Reports: Otitis Media, Other (See Below) Other HEENT History: bacterial conjunctivitis, otitis media, wears glasses Cardiovascular History: Reports: Hypertension Respiratory History: Reports: Sleep Apnea, Other (See Below) Other Respiratory History: snoring Gastrointestinal History: 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, GERD Other Gastrointestinal History: Umbilical hernia Genitourinary History: 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, Other (See Below) Other Genitourinary History: urethral stricture SPINNER FIXER History: 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 Musculoskeletal History: Reports: Arthritis, Osteoporosis, Other (See Below) Other Musculoskeletal History: bilateral degenerative arthritis of bilateral knees, R knee mass Neurological History: Reports: Migraines Psychiatric History: 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 Endocrine/Metabolic History: Reports: Obesity/BMI 30+ Hematologic History: 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 Immunologic History: 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 Oncologic (Cancer) History: 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 Other Oncologic History: To left lower eye Dermatologic History: 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 Other Dermatologic History: CUrrently admitted for cellulitis too Right lower knee/retibial area - Infectious Disease History Infectious Disease History: Reports: Chicken Pox, Measles, Mumps, Shingles - Past Surgical History Head Surgeries/Procedures: 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 HEENT Surgical History: 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 Cardiovascular Surgical History: 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 Respiratory Surgical History: 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 GI Surgical History: 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 Male Surgical History: Reports: Other (See Below) Other Male Surgeries/Procedures: Urethral dilitation. Resolved the problems. R/T to the spinal doen with the RTKA, decreasedability to urinate, causing the stricture Endocrine Surgical History: 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 Neurological Surgical History: 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 Musculoskeletal Surgical History: Reports: Arthroscopic Knee, Knee Replacement, Other (See Below) Other Musculoskeletal Surgeries/Procedures:: right knee replacement, begnin cyst removed from medial aspect of right knee. Oncologic Surgical History: 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 Dermatological Surgical History: 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 - Past Imaging History Past Imaging History: 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 Social & Family History - Family History Family Medical History: No Pertinent Family History - Tobacco Use Tobacco Use Status *Q: Never Tobacco User - Caffeine Use Caffeine Use: Reports: Soda ED ROS GENERAL - Review of Systems Review Of Systems: See Below Constitutional: Reports: No Symptoms HEENT: Reports: No Symptoms Respiratory: Reports: No Symptoms Cardiovascular: Reports: No Symptoms Endocrine: Reports: No Symptoms GI/Abdominal: Reports: No Symptoms : Reports: No Symptoms Musculoskeletal: Reports: Other (Left hip and left leg pain) ED EXAM,LOWER BACK PAIN/INJURY - Physical Exam Exam: See Below Exam Limited By: No Limitations General Appearance: Alert, No Apparent Distress Ears: Normal External Exam Nose: Normal Inspection Head: Atraumatic, Normocephalic Neck: Normal Inspection Respiratory/Chest: No Respiratory Distress Extremities: Other (No pain upon palpation to the left low back. Pain upon palpation to the left hip. Good sensation and pulses distally.) Course - Vital Signs Last Recorded V/S: Last Vital Signs Temp 98.5 F 02/23/21 10:41 Pulse 86 02/23/21 10:41 Resp 16 02/23/21 10:41 BP 181/108 H 02/23/21 10:41 Pulse Ox 95 02/23/21 10:41 - Orders/Labs/Meds Orders: Active Orders 24 hr Category Date Time Status Hip Min 2V or 3V Lt [CR] Stat Exams 02/23/21 11:01 Taken Lumbar Spine 2 or 3V [CR] Stat Exams 02/23/21 11:01 Taken Meds: Medications Discontinued Medications Generic Name Dose Route Start Last Admin Trade Name Donald PRN Reason Stop Dose Admin Hydrocodone Bitart/Acetaminophen 2 tab 02/23/21 11:00 02/23/21 11:28 Acetaminophen/Hydrocodone 325-5 Mg Tab PO 02/23/21 11:01 2 tab ONETIME ONE Administration Cyclobenzaprine HCl 10 mg 02/23/21 11:00 02/23/21 11:28 Cyclobenzaprine 10 Mg Tab PO 02/23/21 11:01 10 mg ONETIME ONE Administration - Re-Assessments/Exams Free Text/Narrative Re-Assessment/Exam: 02/23/21 11:56 I ordered an x-ray of his left hip and low back, hydrocodone 10mg PO and flexeril 10mg. The x-ray shows degenerative changes but nothing acute. Departure - Departure Time of Disposition: 12:00 Disposition: Home, Self-Care 01 Condition: Good Clinical Impression: Sciatica Qualifiers: Laterality: left Qualified Code(s): M54.32 - Sciatica, left side - Discharge Information *PRESCRIPTION DRUG MONITORING PROGRAM REVIEWED*: No *COPY OF PRESCRIPTION DRUG MONITORING REPORT IN PATIENT VIJAY: No Prescriptions: Cyclobenzaprine [Flexeril] 10 mg PO TID PRN #20 tab PRN Reason: Pain Hydrocodone/Acetaminophen [Hydrocodone-Acetamin 5-325 mg] 1 - 2 each PO Q6H PRN #15 tablet PRN Reason: Pain Referrals: Adrián Vance PA-C [Primary Care Provider] - 1 Week Forms: ED Department Discharge Additional Instructions: Take an antiinflammatory such as ibuprofen or aleve. Take the flexeril every 8 hours as needed for pain and they hydrocodone as needed for pain. Do not drive or operate machinery when taking these 2 medicines. Try ice or heat and use which ever one feels better. Follow up with Adrián and your chiropractor. Please return if you are worse. Sepsis Event Note (ED) - Evaluation Sepsis Screening Result: No Definite Risk - Focused Exam Vital Signs: Vital Signs Temp Pulse Resp BP Pulse Ox 02/23/21 10:41 98.5 F 86 16 181/108 H 95 - My Orders Last 24 Hours: My Active Orders 02/23/21 11:01 Hip Min 2V or 3V Lt [CR] Stat Lumbar Spine 2 or 3V [CR] Stat - Assessment/Plan Last 24 Hours: My Active Orders 02/23/21 11:01 Hip Min 2V or 3V Lt [CR] Stat Lumbar Spine 2 or 3V [CR] Stat
[2021-02-23 12:35] VITALS: BP 158/88
--- NOTE | 2021-02-23 19:35 | CR ---
Left hip: AP and frog-leg lateral views of the left hip were obtained. Comparison: No prior hip study is available. Fairly severe joint space narrowing is seen within the left hip. Small degenerative cystic change is seen within the superior acetabulum. Mild calcification is noted above the greater trochanter which is likely dystrophic. No acute fracture or dislocation is seen. Impression: 1. Degenerative change within the left hip. 2. Small calcification above the greater trochanter likely due to old injury or old calcific bursitis. 3. Nothing acute is otherwise seen. Diagnostic code #2
--- NOTE | 2021-02-23 19:47 | CR ---
Lumbar spine: AP, lateral and coned-down lateral views centered to the lumbosacral junction were obtained. Comparison: No prior lumbar spine studies available. Mild diffuse disc space narrowing is seen from T12-L1 through L3-4. Minimal disc space narrowing is seen posteriorly at L4-5 and posteriorly at L5-S1. There is mild spondylolisthesis at L4-5 measuring approximately 7 mm. This finding is most likely due to degenerative apophyseal change. Scattered anterior osteophytes are seen most prominent at T12-L1. Pedicles are intact. Visualized transverse and spinous processes show nothing acute. Impression: 1. Diffuse degenerative change as noted above. 2. Slight spondylolisthesis at L4-5 most likely representing degenerative apophyseal change. 3. Nothing acute is seen. Diagnostic code #3
== END 2021-02-23 12:33 | disposition home or self-care (01) ==
LOC: JD.ED 10:14
DX: M54.32 Sciatica, left side (principal); I10 Essential (primary) hypertension; M19.90 Unspecified osteoarthritis, unspecified site; E66.9 Obesity, unspecified; Z68.42 Body mass index [BMI] 45.0-49.9, adult; Z88.1 Allergy status to other antibiotic agents; Z88.2 Allergy status to sulfonamides; Z79.82 Long term (current) use of aspirin; Z79.899 Other long term (current) drug therapy
CPT/HCPCS: 72100; 73502; 99283; A9270

== ENCOUNTER 2023-11-23 21:47 | Emergency (ER) | payer MEDICARE ==
[2023-11-23] MEDS ORDERED: Sodium Chloride 0.9% 10 ML Syringe FLUSH PRN (22:11)
[2023-11-23 22:19] LABS: APPEARANCE,URINE CLEAR (Clear); BILIRUBIN,URINE NEGATIVE (Negative); COLOR,URINE YELLOW (Yellow); GLUCOSE,URINE NEGATIVE (Negative); KETONES,URINE NEGATIVE (Negative); LEUKOCYTE ESTERASE,URINE NEGATIVE (Negative); NITRITE,URINE NEGATIVE (Negative); OCCULT BLOOD,URINE NEGATIVE (Negative); PH,URINE 8.5 (5.0-8.0); PROTEIN,URINE TRACE (Negative)
[2023-11-23 22:29] LABS: BACTERIA,URINE FEW /hpf (FEW); MUCUS,URINE FEW /hpf (FEW); RBC,URINE 0-5 /hpf (0-5); SQUAMOUS EPITHELIAL CELLS,UR 0-5 /hpf (0-5); WBC,URINE 0-5 /hpf (0-5)
[2023-11-23] MEDS: Acetaminophen 325 MG Tab PO ONE (22:29)
[2023-11-23 22:43] LABS: HEMATOCRIT 44.7 % (42.0-52.0); HEMOGLOBIN 15.3 gm/dl (14.0-18.0); MEAN CORPUSCULAR HEMOGLOBIN 30.2 pg (28.0-32.0); MEAN CORPUSCULAR HGB CONC 34.2 g/dl (32.0-36.0); MEAN CORPUSCULAR VOLUME 88.3 fl (83.0-99.0); MEAN PLATELET VOLUME 9.4 fl (9.4-12.4); PLATELET COUNT,PLT 197 K/mm3 (150-400); RED BLOOD CELL COUNT 5.06 M/mm3 (4.52-5.90); WHITE BLOOD CELL COUNT,WBC 23.31 K/mm3 (3.9-11.3)
[2023-11-23 23:03] LABS: INR 1.04; PROTHROMBIN TIME 11.1 SECONDS (9.7-12.0)
[2023-11-23 23:07] LABS: LACTIC ACID 1.5 mmol/L (0.4-2.0); POTASSIUM,K 3.3 mEq/L (3.5-5.1)
[2023-11-23 23:08] LABS: A/G RATIO 0.9 (1-2); ALBUMIN 3.2 g/dl (3.4-5.0); ANION GAP 15.3 (5-15); BILIRUBIN TOTAL 0.9 mg/dL (0.2-1.0); BUN/CREATININE RATIO 9.1 (14-18); C-REACTIVE PROTEIN 2.8 mg/dL (<0.30); CALCIUM 8.3 mg/dL (8.5-10.1); CREATININE 1.1 mg/dL (0.7-1.3); EST CRCL DRUG DOSING (CG) 69.41 mL/min; PROTEIN TOTAL,TP 6.6 g/dl (6.4-8.2)
[2023-11-23] MEDS: Albuterol/Ipratropium 3.0-0.5 MG/3 ML Neb Soln NEB ONE (23:10)
[2023-11-23 23:21] LABS: BAND PERCENT MAN 0 % (0-10); BASOPHILS PERCENT MAN 0 (0.2-1.2); EOSINOPHILS PERCENT MAN 0 % (0.8-7.0); LYMPHOCYTES % ATYPICAL MANUAL 0 %; LYMPHOCYTES PERCENT MAN 6 % (20-40); MONOCYTES PERCENT MAN 2 % (2-10)
[2023-11-23 23:23] LABS: PLATELET COUNT ESTIMATE ADEQUATE
[2023-11-23] MEDS ORDERED: Sodium Chloride 0.9% 100 ML IV SCH (23:30)
[2023-11-23] MEDS: Iopamidol 755 Mg/ML 100 ML Bottle IVPUSH ONE (23:36)
[2023-11-24] MEDS: cefTRIAXone 2 GM in Sodium Chloride 0.9% 100 ML IV ONE (00:10)
[2023-11-24 01:22] LABS: CORONAVIRUS COVID-19 NAA NEGATIVE (NEGATIVE); INFLUENZA A NAA NEGATIVE (NEGATIVE); RESPIRATORY SYNCYTIAL VIR NAA NEGATIVE (NEGATIVE)
[2023-11-24 01:51] VITALS: BP 106/83; PULSE 94
== END 2023-11-24 01:50 | disposition home or self-care (01) ==
LOC: JD.ED 21:47
DX: N41.0 Acute prostatitis (principal); R50.81 Fever presenting with conditions classified elsewhere; I10 Essential (primary) hypertension; K21.9 Gastro-esophageal reflux disease without esophagitis; Z88.1 Allergy status to other antibiotic agents; Z88.2 Allergy status to sulfonamides; Z79.82 Long term (current) use of aspirin; Z79.899 Other long term (current) drug therapy
CPT/HCPCS: 0241U; 36415; 71045; 71275; 80053; 81001; 83605; 84484; 85007; 85027; 85610; 86140; 87040; 87154; 93005; 94640; 96365; 99285; A9270; J0696; J3490; Q9967; 93010; 99284; J7620-GY

== ENCOUNTER 2024-01-14 07:14 | Emergency (ER) | payer MEDICARE ==
[2024-01-14] MEDS: Diatrizoate Meglumine/Diatrizoate Sodium 37% 120 ML Bottle PO ONE (08:25)
[2024-01-14 08:53] LABS: BASOPHILS PERCENT AUTO 0.4 % (0.0-1.0); EOSINOPHILS ABSOLUTE AUTO 0.2 K/mm3 (0.0-0.4); HEMATOCRIT 48.3 % (42.0-52.0); HEMOGLOBIN 15.9 gm/dl (14.0-18.0); IMMATURE GRAN ABSOLUTE AUTO 0.01 K/mm3 (0.00-0.05); IMMATURE GRAN PERCENT AUTO 0.1 % (0.0-0.4); LYMPHOCYTES PERCENT AUTO 25.2 % (24.0-44.0); MEAN CORPUSCULAR HEMOGLOBIN 29.9 pg (28.0-32.0); MEAN CORPUSCULAR HGB CONC 32.9 g/dl (32.0-36.0); MEAN CORPUSCULAR VOLUME 90.8 fl (83.0-99.0); MEAN PLATELET VOLUME 9.5 fl (9.4-12.4); MONOCYTES ABSOLUTE AUTO 0.7 K/mm3 (0.0-0.8); MONOCYTES PERCENT AUTO 9.1 % (0.0-8.0); NEUTROPHILS ABSOLUTE AUTO 5.1 K/mm3 (1.8-7.7); NEUTROPHILS PERCENT AUTO 63.2 % (41.0-71.0); PLATELET COUNT,PLT 211 K/mm3 (150-400); RED BLOOD CELL COUNT 5.32 M/mm3 (4.52-5.90); WHITE BLOOD CELL COUNT,WBC 8.11 K/mm3 (3.9-11.3)
[2024-01-14] MEDS: Morphine 4 MG/ML Syringe IVPUSH ONE (09:13)
[2024-01-14 09:19] LABS: ALBUMIN 3.3 g/dl (3.4-5.0); ANION GAP 11.4 (5-15); BILIRUBIN TOTAL 0.8 mg/dL (0.2-1.0); BUN/CREATININE RATIO 11.1 (14-18); CALCIUM 8.4 mg/dL (8.5-10.1); CREATININE 0.9 mg/dL (0.7-1.3); EST CRCL DRUG DOSING (CG) 84.83 mL/min; POTASSIUM,K 3.4 mEq/L (3.5-5.1); PROTEIN TOTAL,TP 6.6 g/dl (6.4-8.2)
[2024-01-14] MEDS: Iopamidol 612 MG/ML 100 ML Bottle IVPUSH ONE (09:46)
[2024-01-14 10:54] LABS: APPEARANCE,URINE CLEAR (Clear); BILIRUBIN,URINE NEGATIVE (Negative); COLOR,URINE YELLOW (Yellow); GLUCOSE,URINE NEGATIVE (Negative); KETONES,URINE NEGATIVE (Negative); LEUKOCYTE ESTERASE,URINE NEGATIVE (Negative); NITRITE,URINE NEGATIVE (Negative); OCCULT BLOOD,URINE NEGATIVE (Negative); PROTEIN,URINE TRACE (Negative)
[2024-01-14] MEDS ORDERED: Bupivacaine 0.25% 10 ML SDV ONE ×2 (11:50→11:51)
[2024-01-14] MEDS ORDERED: EPINEPHrine 1 MG/ML SDV ONE (12:03)
[2024-01-14 12:14] LABS: BACTERIA,URINE FEW /hpf (FEW); MUCUS,URINE FEW /hpf (FEW); RBC,URINE 0-5 /hpf (0-5); WBC,URINE 0-5 /hpf (0-5)
[2024-01-14] MEDS ORDERED: ceFAZolin 2 GM Vial ONE (12:17)
[2024-01-14] MEDS ORDERED: Ondansetron 4 MG/2 ML SDV ONE (12:17)
[2024-01-14] MEDS ORDERED: Succinylcholine 200 MG/10 ML MDV ONE (12:17)
[2024-01-14] MEDS ORDERED: Dexamethasone 4 MG/ML 5 ML MDV ONE (12:17)
[2024-01-14] MEDS ORDERED: Lidocaine 1% 5 ML VIAL ONE (12:17)
[2024-01-14] MEDS ORDERED: Rocuronium 50 MG/5 ML Vial ONE (12:17)
[2024-01-14 12:38] LABS: INR 1.1; PROTHROMBIN TIME 11.6 SECONDS (9.7-12.0)
[2024-01-14 12:39] LABS: PTT,PARTIAL THROMBOPLSTIN TIME 26.8 SECONDS (21.7-31.4)
[2024-01-14 13:35] VITALS: BP 156/70; PULSE 77
== END 2024-01-14 13:35 | disposition critical access hospital (66) ==
LOC: JD.ED 07:14
DX: K42.9 Umbilical hernia without obstruction or gangrene (principal); I10 Essential (primary) hypertension; E66.9 Obesity, unspecified; Z88.2 Allergy status to sulfonamides; Z88.8 Allergy status to other drugs, medicaments and biological substances; Z68.36 Body mass index [BMI] 36.0-36.9, adult
CPT/HCPCS: 36415; 74177; 80053; 81001; 83690; 85025; 85610; 85730; 93005; 96374; 99285; J0171; J0330; J0665; J0690; J1100; J2270; J2405; Q9963; Q9967; J3490

== ENCOUNTER 2024-02-02 19:09 | Inpatient (IN) | payer MEDICARE ==
[2024-02-02 19:43] LABS: BASOPHILS PERCENT AUTO 0.4 % (0.0-1.0); EOSINOPHILS ABSOLUTE AUTO 0.2 K/mm3 (0.0-0.4); EOSINOPHILS PERCENT AUTO 1.9 % (0.0-6.0); HEMATOCRIT 48.7 % (42.0-52.0); IMMATURE GRAN ABSOLUTE AUTO 0.03 K/mm3 (0.00-0.05); IMMATURE GRAN PERCENT AUTO 0.3 % (0.0-0.4); LYMPHOCYTES ABSOLUTE AUTO 2.2 K/mm3 (1.0-4.8); LYMPHOCYTES PERCENT AUTO 24.5 % (24.0-44.0); MEAN CORPUSCULAR HEMOGLOBIN 29.4 pg (28.0-32.0); MEAN CORPUSCULAR HGB CONC 32.9 g/dl (32.0-36.0); MEAN CORPUSCULAR VOLUME 89.5 fl (83.0-99.0); MEAN PLATELET VOLUME 9.7 fl (9.4-12.4); MONOCYTES ABSOLUTE AUTO 0.8 K/mm3 (0.0-0.8); NEUTROPHILS ABSOLUTE AUTO 5.7 K/mm3 (1.8-7.7); NEUTROPHILS PERCENT AUTO 63.9 % (41.0-71.0); PLATELET COUNT,PLT 222 K/mm3 (150-400); RED BLOOD CELL COUNT 5.44 M/mm3 (4.52-5.90); WHITE BLOOD CELL COUNT,WBC 8.93 K/mm3 (3.9-11.3)
[2024-02-02 19:51] LABS: APPEARANCE,URINE CLEAR (Clear); BILIRUBIN,URINE NEGATIVE (Negative); COLOR,URINE YELLOW (Yellow); GLUCOSE,URINE NEGATIVE (Negative); KETONES,URINE NEGATIVE (Negative); LEUKOCYTE ESTERASE,URINE NEGATIVE (Negative); NITRITE,URINE NEGATIVE (Negative); OCCULT BLOOD,URINE NEGATIVE (Negative); PH,URINE 6.5 (5.0-8.0); PROTEIN,URINE 1+ (Negative)
[2024-02-02] MEDS: Diltiazem 25 MG/5 ML SDV IVPUSH ONE (19:51)
[2024-02-02] MEDS: Sodium Chloride 0.9% 10 ML Syringe FLUSH PRN (19:51)
[2024-02-02 19:58] LABS: LACTIC ACID 1.2 mmol/L (0.4-2.0)
[2024-02-02 20:01] LABS: A/G RATIO 0.9 (1-2); ALBUMIN 3.3 g/dl (3.4-5.0); ANION GAP 12.5 (5-15); BILIRUBIN TOTAL 0.9 mg/dL (0.2-1.0); BUN/CREATININE RATIO 11.1 (14-18); CREATININE 0.9 mg/dL (0.7-1.3); EST CRCL DRUG DOSING (CG) 92.6 mL/min; MAGNESIUM 2.1 mg/dL (1.8-2.4); POTASSIUM,K 3.5 mEq/L (3.5-5.1); PROTEIN TOTAL,TP 6.9 g/dl (6.4-8.2)
[2024-02-02 20:22] LABS: BACTERIA,URINE FEW /hpf (FEW); MUCUS,URINE MODERATE /hpf (FEW); RBC,URINE 0-5 /hpf (0-5); SQUAMOUS EPITHELIAL CELLS,UR 0-5 /hpf (0-5); WBC,URINE 0-5 /hpf (0-5)
[2024-02-02 20:23] LABS: CORONAVIRUS COVID-19 NAA NEGATIVE (NEGATIVE); INFLUENZA A NAA NEGATIVE (NEGATIVE); RESPIRATORY SYNCYTIAL VIR NAA NEGATIVE (NEGATIVE)
[2024-02-02] MEDS: Furosemide 40 MG/4 ML VIAL IVPUSH ONE (21:10)
[2024-02-02] MEDS: Apixaban 5 MG Tab PO SCH (22:32)
[2024-02-03] MEDS ORDERED: Ondansetron 4 MG/2 ML SDV IV PRN (08:37)
[2024-02-03] MEDS ORDERED: Polyethylene Glycol 3350 Powder 17 GM Packet PO PRN (08:37)
[2024-02-03] MEDS ORDERED: Docusate Sodium 100 MG Cap PO PRN (08:37)
[2024-02-03] MEDS ORDERED: Ondansetron 4 MG Tab.DIS PO PRN (08:37)
[2024-02-03] MEDS: Apixaban 5 MG Tab PO SCH (09:33)
[2024-02-03] MEDS: Potassium Chloride 20 MEQ Tab.ER PO SCH ×2 (09:33→20:26)
[2024-02-03] MEDS: Metoprolol Tartrate 25 MG Tab PO SCH (09:33)
[2024-02-03] MEDS: Acetaminophen 325 MG Tab PO PRN (09:40)
[2024-02-03 12:15] LABS: ANION GAP 10.3 (5-15); BUN/CREATININE RATIO 12.5 (14-18); CALCIUM 8.8 mg/dL (8.5-10.1); CREATININE 0.8 mg/dL (0.7-1.3); EST CRCL DRUG DOSING (CG) 95.43 mL/min; MAGNESIUM 2.1 mg/dL (1.8-2.4); POTASSIUM,K 3.3 mEq/L (3.5-5.1); TSH 0.683 uIU/mL (0.358-3.74)
[2024-02-03] MEDS: Furosemide 20 MG/2 ML VIAL IVPUSH ONE (13:18)
[2024-02-03] MEDS: Potassium Chloride 10 MEQ in Premix Bag 1 BAG IV SCH ×2 (13:19→22:10)
[2024-02-04 04:54] LABS: BASOPHILS PERCENT AUTO 0.3 % (0.0-1.0); EOSINOPHILS ABSOLUTE AUTO 0.1 K/mm3 (0.0-0.4); HEMOGLOBIN 15.5 gm/dl (14.0-18.0); IMMATURE GRAN ABSOLUTE AUTO 0.02 K/mm3 (0.00-0.05); IMMATURE GRAN PERCENT AUTO 0.2 % (0.0-0.4); LYMPHOCYTES ABSOLUTE AUTO 1.5 K/mm3 (1.0-4.8); LYMPHOCYTES PERCENT AUTO 16.5 % (24.0-44.0); MEAN CORPUSCULAR HEMOGLOBIN 29.6 pg (28.0-32.0); MEAN CORPUSCULAR VOLUME 89.9 fl (83.0-99.0); MONOCYTES ABSOLUTE AUTO 0.8 K/mm3 (0.0-0.8); MONOCYTES PERCENT AUTO 8.8 % (0.0-8.0); NEUTROPHILS ABSOLUTE AUTO 6.8 K/mm3 (1.8-7.7); NEUTROPHILS PERCENT AUTO 73.2 % (41.0-71.0); PLATELET COUNT,PLT 201 K/mm3 (150-400); RED BLOOD CELL COUNT 5.23 M/mm3 (4.52-5.90); WHITE BLOOD CELL COUNT,WBC 9.24 K/mm3 (3.9-11.3)
[2024-02-04 05:22] LABS: ANION GAP 14.9 (5-15); BUN/CREATININE RATIO 14.3 (14-18); CALCIUM 8.9 mg/dL (8.5-10.1); CREATININE 0.7 mg/dL (0.7-1.3); EST CRCL DRUG DOSING (CG) 109.07 mL/min; POTASSIUM,K 3.9 mEq/L (3.5-5.1)
[2024-02-04] MEDS: Furosemide 20 MG/2 ML VIAL IVPUSH SCH (06:14)
[2024-02-04] MEDS ORDERED: Metoprolol Tartrate 5 MG in Sodium Chloride 0.9% 50 ML IV ONE ×2 (08:34→13:03)
[2024-02-04] MEDS: Metoprolol Tartrate 5 MG/5 ML SDV IV ONE ×2 (09:16→13:35)
[2024-02-04] MEDS: Metoprolol Tartrate 50 MG Tab PO SCH (09:29)
[2024-02-04] MEDS: Furosemide 20 MG Tab PO SCH (09:31)
[2024-02-04] MEDS: Lisinopril 5 MG Tab PO SCH (17:15)
[2024-02-04] MEDS: Metoprolol Tartrate 25 MG Tab PO SCH (21:52)
[2024-02-05 05:39] LABS: BASOPHILS PERCENT AUTO 0.3 % (0.0-1.0); EOSINOPHILS ABSOLUTE AUTO 0.1 K/mm3 (0.0-0.4); HEMATOCRIT 49.7 % (42.0-52.0); HEMOGLOBIN 16.5 gm/dl (14.0-18.0); IMMATURE GRAN ABSOLUTE AUTO 0.04 K/mm3 (0.00-0.05); IMMATURE GRAN PERCENT AUTO 0.3 % (0.0-0.4); LYMPHOCYTES ABSOLUTE AUTO 1.8 K/mm3 (1.0-4.8); LYMPHOCYTES PERCENT AUTO 15.7 % (24.0-44.0); MEAN CORPUSCULAR HEMOGLOBIN 29.6 pg (28.0-32.0); MEAN CORPUSCULAR HGB CONC 33.2 g/dl (32.0-36.0); MEAN CORPUSCULAR VOLUME 89.1 fl (83.0-99.0); MEAN PLATELET VOLUME 9.8 fl (9.4-12.4); MONOCYTES PERCENT AUTO 8.8 % (0.0-8.0); NEUTROPHILS ABSOLUTE AUTO 8.5 K/mm3 (1.8-7.7); NEUTROPHILS PERCENT AUTO 73.9 % (41.0-71.0); PLATELET COUNT,PLT 224 K/mm3 (150-400); RED BLOOD CELL COUNT 5.58 M/mm3 (4.52-5.90); WHITE BLOOD CELL COUNT,WBC 11.56 K/mm3 (3.9-11.3)
[2024-02-05 05:46] LABS: ANION GAP 14.5 (5-15); BUN/CREATININE RATIO 16.3 (14-18); CALCIUM 9.2 mg/dL (8.5-10.1); CREATININE 0.8 mg/dL (0.7-1.3); EST CRCL DRUG DOSING (CG) 95.43 mL/min; POTASSIUM,K 4.5 mEq/L (3.5-5.1)
[2024-02-05] MEDS ORDERED: Metoprolol Tartrate 5 MG in Sodium Chloride 0.9% 50 ML IV ONE (08:39)
[2024-02-05] MEDS: Metoprolol Tartrate 100 MG Tab PO SCH (09:16)
[2024-02-05] MEDS: Metoprolol Tartrate 5 MG/5 ML SDV IV ONE (09:17)
[2024-02-05 12:25] VITALS: BP 142/101; PULSE 93
== END 2024-02-05 12:52 | disposition home or self-care (01) | DRG 291 ==
LOC: JD.ED 19:09 → JD.MS 21:18
PROVIDERS: ADMIT Family Medicine; ATTEND Family Medicine
DX: I11.0 Hypertensive heart disease with heart failure (principal); I50.21 Acute systolic (congestive) heart failure; Z68.42 Body mass index [BMI] 45.0-49.9, adult; K42.9 Umbilical hernia without obstruction or gangrene; I48.91 Unspecified atrial fibrillation; K21.9 Gastro-esophageal reflux disease without esophagitis; E66.9 Obesity, unspecified; G89.29 Other chronic pain; M19.90 Unspecified osteoarthritis, unspecified site; G47.33 Obstructive sleep apnea (adult) (pediatric); M54.9 Dorsalgia, unspecified; R97.20 Elevated prostate specific antigen [PSA]; Z79.01 Long term (current) use of anticoagulants; Z79.1 Long term (current) use of non-steroidal anti-inflammatories (NSAID); Z88.1 Allergy status to other antibiotic agents; Z88.2 Allergy status to sulfonamides; Z96.659 Presence of unspecified artificial knee joint; Z87.891 Personal history of nicotine dependence; Z79.899 Other long term (current) drug therapy
CPT/HCPCS: 0241U; 36415; 71045; 80048; 80053; 81001; 83605; 83735; 83880; 84443; 84484; 85025; 87040; 87154; 93005; 93306; 94660; 94760; 96374; 96375; 99285; 93010; 99223; 99232; 99239; A9270-GY; J1940; J3480; J3490

== ENCOUNTER 2025-03-26 20:00 | Emergency (ER) | payer MEDICARE ==
[2025-03-26 20:40] LABS: BASOPHILS ABSOLUTE AUTO 0.0 K/mm3 (0.0-0.2); BASOPHILS PERCENT AUTO 0.4 % (0.0-1.0); EOSINOPHILS ABSOLUTE AUTO 0.1 K/mm3 (0.0-0.4); EOSINOPHILS PERCENT AUTO 1.0 % (0.0-6.0); IMMATURE GRAN ABSOLUTE AUTO 0.03 K/mm3 (0.00-0.05); IMMATURE GRAN PERCENT AUTO 0.3 % (0.0-0.4); LYMPHOCYTES ABSOLUTE AUTO 2.1 K/mm3 (1.0-4.8); LYMPHOCYTES PERCENT AUTO 21.6 % (24.0-44.0); MEAN PLATELET VOLUME 9.9 fl (9.4-12.4); MONOCYTES ABSOLUTE AUTO 1.1 K/mm3 (0.0-0.8); MONOCYTES PERCENT AUTO 10.7 % (0.0-8.0); NEUTROPHILS ABSOLUTE AUTO 6.6 K/mm3 (1.8-7.7); NEUTROPHILS PERCENT AUTO 66.0 % (41.0-71.0); NRBC ABSOLUTE 0.00 (0.00-0.02); NRBC PERCENT 0.0 % (0.0-0.2); PLATELET COUNT,PLT 190 K/mm3 (150-400); RED BLOOD CELL COUNT 6.38 M/mm3 (4.52-5.90); WHITE BLOOD CELL COUNT,WBC 9.92 K/mm3 (3.9-11.3)
[2025-03-26 21:00] LABS: INR 1.42
[2025-03-26 21:02] LABS: BUPRENORPHINE SCREEN,URINE NEGATIVE (CUTOFF=10); METHADONE SCREEN, URINE NEGATIVE (CUT0FF=200); METHAMPHETAMINES SCREEN, URINE NEGATIVE (CUTOFF=500); OXYCODONE SCREEN,URINE NEGATIVE (CUT0FF=100); THC SCREEN,URINE 20 NG/ML NEGATIVE (CUTOFF=50)
[2025-03-26 21:03] LABS: AMPHETAMINES SCREEN, URINE NEGATIVE (CUTOFF=500)
[2025-03-26 21:07] LABS: A/G RATIO 0.9 (1-2); ALANINE AMINOTRANSFERASE,ALT 28.0 U/L (16-63); ASPARTATE AMNIOTRANSFERASE,AST 23.0 U/L (15-37); BILIRUBIN TOTAL 1.6 mg/dL (0.2-1.0); BLOOD UREA NITROGEN,BUN 18.0 mg/dL (7-18); CARBON DIOXIDE,CO2 28.0 mEq/L (21-32); CHLORIDE,CL 105.0 mEq/L (98-107); CREATINE KINASE,CK 99.0 U/L (39-308); CREATININE 1.1 mg/dL (0.7-1.3); EST CRCL DRUG DOSING (CG) 70.55 mL/min; ESTIMATED GFR 73.0 mL/min (>60); GLUCOSE RANDOM 107.0 mg/dL (70-99); POTASSIUM,K 4.3 mEq/L (3.5-5.1); PROTEIN TOTAL,TP 7.1 g/dl (6.4-8.2); SODIUM,NA 142.0 mEq/L (136-145); TROPONIN I HIGH SENSITIVITY 37.0 pg/mL (<=76)
[2025-03-26 23:47] VITALS: BP 150/102; PULSE 92
== END 2025-03-26 23:08 | disposition home or self-care (01) ==
LOC: JD.ED 20:00
DX: I11.0 Hypertensive heart disease with heart failure (principal); I50.9 Heart failure, unspecified; J90 Pleural effusion, not elsewhere classified; R60.0 Localized edema; I48.91 Unspecified atrial fibrillation; K21.9 Gastro-esophageal reflux disease without esophagitis; E66.9 Obesity, unspecified; G47.33 Obstructive sleep apnea (adult) (pediatric); Z96.659 Presence of unspecified artificial knee joint; Z88.1 Allergy status to other antibiotic agents; Z88.2 Allergy status to sulfonamides; Z79.01 Long term (current) use of anticoagulants; Z79.899 Other long term (current) drug therapy
CPT/HCPCS: 36415; 71045; 71045-26; 80053; 80306; 82550; 83690; 83735; 83880; 84484; 85025; 85610; 93005; 93010; 99284; 99285

== ENCOUNTER 2025-04-18 09:15 | Inpatient (IN) | payer MEDICARE ==
[2025-04-18 11:13] LABS: BASOPHILS ABSOLUTE AUTO 0.0 K/mm3 (0.0-0.2); BASOPHILS PERCENT AUTO 0.4 % (0.0-1.0); EOSINOPHILS ABSOLUTE AUTO 0.1 K/mm3 (0.0-0.4); EOSINOPHILS PERCENT AUTO 1.1 % (0.0-6.0); IMMATURE GRAN ABSOLUTE AUTO 0.02 K/mm3 (0.00-0.05); IMMATURE GRAN PERCENT AUTO 0.2 % (0.0-0.4); LYMPHOCYTES ABSOLUTE AUTO 1.4 K/mm3 (1.0-4.8); LYMPHOCYTES PERCENT AUTO 17.0 % (24.0-44.0); MEAN PLATELET VOLUME 9.3 fl (9.4-12.4); MONOCYTES ABSOLUTE AUTO 0.8 K/mm3 (0.0-0.8); MONOCYTES PERCENT AUTO 9.4 % (0.0-8.0); NEUTROPHILS ABSOLUTE AUTO 5.8 K/mm3 (1.8-7.7); NEUTROPHILS PERCENT AUTO 71.9 % (41.0-71.0); NRBC ABSOLUTE 0.00 (0.00-0.02); NRBC PERCENT 0.0 % (0.0-0.2); PLATELET COUNT,PLT 179 K/mm3 (150-400); RED BLOOD CELL COUNT 5.67 M/mm3 (4.52-5.90); WHITE BLOOD CELL COUNT,WBC 8.11 K/mm3 (3.9-11.3)
[2025-04-18 11:39] LABS: LACTIC ACID 1.0 mmol/L (0.4-2.0)
[2025-04-18 11:46] LABS: A/G RATIO 0.8 (1-2); ALANINE AMINOTRANSFERASE,ALT 28.0 U/L (16-63); ASPARTATE AMNIOTRANSFERASE,AST 30.0 U/L (15-37); BILIRUBIN TOTAL 1.3 mg/dL (0.2-1.0); BLOOD UREA NITROGEN,BUN 11.0 mg/dL (7-18); CARBON DIOXIDE,CO2 28.0 mEq/L (21-32); CHLORIDE,CL 107.0 mEq/L (98-107); CREATININE 0.9 mg/dL (0.7-1.3); EST CRCL DRUG DOSING (CG) 83.67 mL/min; ESTIMATED GFR 93.0 mL/min (>60); GLUCOSE RANDOM 104.0 mg/dL (70-99); POTASSIUM,K 4.3 mEq/L (3.5-5.1); PROTEIN TOTAL,TP 6.6 g/dl (6.4-8.2); SODIUM,NA 143.0 mEq/L (136-145); TROPONIN I HIGH SENSITIVITY 31.0 pg/mL (<=76); TSH 1.162 uIU/mL (0.358-3.74)
[2025-04-18 11:46] LABS: APPEARANCE,URINE CLEAR (Clear); GLUCOSE,URINE NEGATIVE (Negative); OCCULT BLOOD,URINE NEGATIVE (Negative)
[2025-04-18] MEDS ORDERED: Sodium Chloride 0.9% 10 ML Syringe FLUSH PRN (13:51)
[2025-04-18] MEDS: Iopamidol 755 Mg/ML 100 ML Bottle IVPUSH ONE (14:06)
[2025-04-18] MEDS: Sodium Chloride 0.9% 10 ML Syringe FLUSH PRN (14:06)
[2025-04-18] MEDS: Furosemide 40 MG/4 ML VIAL IVPUSH ONE (16:17)
[2025-04-19 04:17] LABS: BASOPHILS ABSOLUTE AUTO 0.1 K/mm3 (0.0-0.2); BASOPHILS PERCENT AUTO 0.6 % (0.0-1.0); EOSINOPHILS ABSOLUTE AUTO 0.1 K/mm3 (0.0-0.4); EOSINOPHILS PERCENT AUTO 1.0 % (0.0-6.0); IMMATURE GRAN ABSOLUTE AUTO 0.02 K/mm3 (0.00-0.05); IMMATURE GRAN PERCENT AUTO 0.2 % (0.0-0.4); LYMPHOCYTES ABSOLUTE AUTO 1.4 K/mm3 (1.0-4.8); LYMPHOCYTES PERCENT AUTO 17.2 % (24.0-44.0); MEAN PLATELET VOLUME 9.9 fl (9.4-12.4); MONOCYTES ABSOLUTE AUTO 0.8 K/mm3 (0.0-0.8); MONOCYTES PERCENT AUTO 10.5 % (0.0-8.0); NEUTROPHILS ABSOLUTE AUTO 5.7 K/mm3 (1.8-7.7); NEUTROPHILS PERCENT AUTO 70.5 % (41.0-71.0); NRBC ABSOLUTE 0.00 (0.00-0.02); NRBC PERCENT 0.0 % (0.0-0.2); PLATELET COUNT,PLT 181 K/mm3 (150-400); RED BLOOD CELL COUNT 5.61 M/mm3 (4.52-5.90); WHITE BLOOD CELL COUNT,WBC 8.03 K/mm3 (3.9-11.3)
[2025-04-19 04:39] LABS: A/G RATIO 0.9 (1-2); ALANINE AMINOTRANSFERASE,ALT 27.0 U/L (16-63); ASPARTATE AMNIOTRANSFERASE,AST 26.0 U/L (15-37); BILIRUBIN TOTAL 1.6 mg/dL (0.2-1.0); BLOOD UREA NITROGEN,BUN 12.0 mg/dL (7-18); CARBON DIOXIDE,CO2 28.0 mEq/L (21-32); CHLORIDE,CL 108.0 mEq/L (98-107); CREATININE 0.9 mg/dL (0.7-1.3); EST CRCL DRUG DOSING (CG) 83.67 mL/min; ESTIMATED GFR 93.0 mL/min (>60); GLUCOSE RANDOM 103.0 mg/dL (70-99); POTASSIUM,K 3.9 mEq/L (3.5-5.1); PROTEIN TOTAL,TP 6.3 g/dl (6.4-8.2); SODIUM,NA 145.0 mEq/L (136-145)
[2025-04-19] MEDS: Furosemide 40 MG/4 ML VIAL IVPUSH SCH (06:26)
[2025-04-20 04:13] LABS: BASOPHILS ABSOLUTE AUTO 0.0 K/mm3 (0.0-0.2); BASOPHILS PERCENT AUTO 0.3 % (0.0-1.0); EOSINOPHILS ABSOLUTE AUTO 0.1 K/mm3 (0.0-0.4); EOSINOPHILS PERCENT AUTO 1.0 % (0.0-6.0); IMMATURE GRAN ABSOLUTE AUTO 0.02 K/mm3 (0.00-0.05); IMMATURE GRAN PERCENT AUTO 0.2 % (0.0-0.4); LYMPHOCYTES ABSOLUTE AUTO 1.5 K/mm3 (1.0-4.8); LYMPHOCYTES PERCENT AUTO 17.3 % (24.0-44.0); MEAN PLATELET VOLUME 9.8 fl (9.4-12.4); MONOCYTES ABSOLUTE AUTO 0.9 K/mm3 (0.0-0.8); MONOCYTES PERCENT AUTO 10.9 % (0.0-8.0); NEUTROPHILS ABSOLUTE AUTO 6.0 K/mm3 (1.8-7.7); NEUTROPHILS PERCENT AUTO 70.3 % (41.0-71.0); NRBC ABSOLUTE 0.00 (0.00-0.02); NRBC PERCENT 0.0 % (0.0-0.2); PLATELET COUNT,PLT 196 K/mm3 (150-400); RED BLOOD CELL COUNT 5.79 M/mm3 (4.52-5.90); WHITE BLOOD CELL COUNT,WBC 8.60 K/mm3 (3.9-11.3)
[2025-04-20 04:39] LABS: A/G RATIO 0.9 (1-2); ALANINE AMINOTRANSFERASE,ALT 30.0 U/L (16-63); ASPARTATE AMNIOTRANSFERASE,AST 26.0 U/L (15-37); BILIRUBIN TOTAL 1.8 mg/dL (0.2-1.0); BLOOD UREA NITROGEN,BUN 15.0 mg/dL (7-18); CARBON DIOXIDE,CO2 31.0 mEq/L (21-32); CHLORIDE,CL 105.0 mEq/L (98-107); CREATININE 1.0 mg/dL (0.7-1.3); EST CRCL DRUG DOSING (CG) 75.3 mL/min; ESTIMATED GFR 82.0 mL/min (>60); GLUCOSE RANDOM 103.0 mg/dL (70-99); POTASSIUM,K 3.7 mEq/L (3.5-5.1); PROTEIN TOTAL,TP 6.8 g/dl (6.4-8.2); SODIUM,NA 144.0 mEq/L (136-145)
[2025-04-20] MEDS: Furosemide 40 MG/4 ML VIAL IVPUSH SCH (06:19)
[2025-04-21 06:51] LABS: BASOPHILS ABSOLUTE AUTO 0.0 K/mm3 (0.0-0.2); BASOPHILS PERCENT AUTO 0.4 % (0.0-1.0); EOSINOPHILS ABSOLUTE AUTO 0.1 K/mm3 (0.0-0.4); EOSINOPHILS PERCENT AUTO 1.2 % (0.0-6.0); IMMATURE GRAN ABSOLUTE AUTO 0.02 K/mm3 (0.00-0.05); IMMATURE GRAN PERCENT AUTO 0.2 % (0.0-0.4); LYMPHOCYTES ABSOLUTE AUTO 1.4 K/mm3 (1.0-4.8); LYMPHOCYTES PERCENT AUTO 17.4 % (24.0-44.0); MEAN PLATELET VOLUME 9.8 fl (9.4-12.4); MONOCYTES ABSOLUTE AUTO 1.0 K/mm3 (0.0-0.8); MONOCYTES PERCENT AUTO 11.7 % (0.0-8.0); NEUTROPHILS ABSOLUTE AUTO 5.7 K/mm3 (1.8-7.7); NEUTROPHILS PERCENT AUTO 69.1 % (41.0-71.0); NRBC ABSOLUTE 0.00 (0.00-0.02); NRBC PERCENT 0.0 % (0.0-0.2); PLATELET COUNT,PLT 194 K/mm3 (150-400); RED BLOOD CELL COUNT 5.96 M/mm3 (4.52-5.90); WHITE BLOOD CELL COUNT,WBC 8.20 K/mm3 (3.9-11.3)
[2025-04-21 07:04] LABS: A/G RATIO 0.9 (1-2); ALANINE AMINOTRANSFERASE,ALT 27.0 U/L (16-63); ASPARTATE AMNIOTRANSFERASE,AST 24.0 U/L (15-37); BILIRUBIN TOTAL 2.0 mg/dL (0.2-1.0); BLOOD UREA NITROGEN,BUN 15.0 mg/dL (7-18); CARBON DIOXIDE,CO2 34.0 mEq/L (21-32); CHLORIDE,CL 103.0 mEq/L (98-107); CREATININE 1.0 mg/dL (0.7-1.3); EST CRCL DRUG DOSING (CG) 75.3 mL/min; ESTIMATED GFR 82.0 mL/min (>60); GLUCOSE RANDOM 95.0 mg/dL (70-99); POTASSIUM,K 3.7 mEq/L (3.5-5.1); PROTEIN TOTAL,TP 6.7 g/dl (6.4-8.2); SODIUM,NA 145.0 mEq/L (136-145)
[2025-04-21 09:43] VITALS: BP 125/87; PULSE 97
== END 2025-04-21 11:05 | disposition home or self-care (01) | DRG 291 ==
LOC: JD.ED 09:15 → JD.MS 16:01
PROVIDERS: ADMIT Family Medicine; ATTEND Family Medicine
DX: I11.0 Hypertensive heart disease with heart failure (principal); I50.23 Acute on chronic systolic (congestive) heart failure; Z68.43 Body mass index [BMI] 50.0-59.9, adult; I48.91 Unspecified atrial fibrillation; I50.9 Heart failure, unspecified; G47.33 Obstructive sleep apnea (adult) (pediatric); E66.9 Obesity, unspecified; H54.7 Unspecified visual loss; M19.90 Unspecified osteoarthritis, unspecified site; M54.9 Dorsalgia, unspecified; G89.29 Other chronic pain; G43.909 Migraine, unspecified, not intractable, without status migrainosus; K21.9 Gastro-esophageal reflux disease without esophagitis; Z98.890 Other specified postprocedural states; Z88.8 Allergy status to other drugs, medicaments and biological substances; Z79.899 Other long term (current) drug therapy; Z79.01 Long term (current) use of anticoagulants; Z88.1 Allergy status to other antibiotic agents; Z88.2 Allergy status to sulfonamides; Z96.659 Presence of unspecified artificial knee joint
CPT/HCPCS: 36415; 71045; 71275; 80053; 81001; 83605; 83690; 83735; 83880; 84443; 84484; 85025; 85379; 87040 ×2; 87428; 93005; 93970; 96360; 96361; 99285; J7030; Q9967; 93010; 93306; 94760; 94761; 97112-GP; 97116-GP; 97161-GP; 99223; 99232; 99239; A9270-GY; J1938